=== PATIENT | female | born 1955 | race Caucasian/White ===

== ENCOUNTER → 2022-09-29 | Outpatient (CLI) | payer MEDICARE ==
[2022-09-29 12:08] LABS: African American GFR (CKD) >90 (>60 ml/min/1.73 sqM); Blood Urea Nitrogen 14 mg/dL (7-17); Non-African American GFR(CKD) 88 (>60 ml/min/1.73 sqM)
--- NOTE | 2022-09-29 22:11 | CT ---
EXAMINATION TYPE: CT chest w con DATE OF EXAM: 09/29/2022 COMPARISON: None HISTORY: h/o bilateral pneumonia CT DLP: 376.2 mGycm, Automated exposure control for dose reduction was used. CONTRAST: Performed injected with 70 mL of Isovue 300. TECHNIQUE: Axial images were obtained at 5 mm thick sections. Reconstructed images are reviewed on [employer] computer in the coronal plane. FINDINGS: Portion of the thyroid visualized is normal. Some posterior pleural thickening is present in the right and left upper lung lyn. Punctate nodule is in the anterior lateral right lung. Series 4 image 15. Some pneumonitis type changes in the later al left lung. Series 4 image 24. Small nodule may be posterior to this groundglass opacity. Series 4 image 21 No enlarged mediastinal or hilar adenopathy is evident. The ascending aorta diameter at the level o f the main pulmonary artery is 3.1 cm. The main pulmonary artery diameter at the bifurcation is 2.[address] sections are obtained through the upper abdomen. There is a 4.4 cm cyst at the inferior po le left kidney. There may be a hiatal hernia present. IMPRESSIONS: 1. Couple of punctate densities and groundglass opacities discussed above. Recommend follow-up CT [facility] in 6 months to reevaluate for stability. This should be confirmed as stable over the course of 2 y ears.
== END | disposition home or self-care (01) ==
LOC: RADCTMAIN 11:30
PROVIDERS: ATTEND Internal Medicine
DX: J18.9 Pneumonia, unspecified organism (principal); J98.4 Other disorders of lung; R91.8 Other nonspecific abnormal finding of lung field
CPT/HCPCS: 82565; 84520; 71260; 36415; Q9967

== ENCOUNTER 2022-11-20 11:23 | Day surgery (SDC) | payer MEDICARE ==
[~2022-11-20 11:23] MED LIST: LACTATED RINGERS 1,000 ML IV SCH
[2022-11-20 11:48] VITALS: TEMP 97.9
[2022-11-20] MEDS ORDERED: PROPOFOL 10 MG/ML 20 ML VIAL IV ONE (12:13)
[2022-11-20] MEDS ORDERED: LIDOCAINE 2% INJ 20 MG/ML (2 ML VIAL) ONE (12:13)
[2022-11-20] MEDS ORDERED: LIDOCAINE 2% (PF) 20 MG/ML 5 ML VIAL INHALATION ONE (12:24)
[2022-11-20 12:55] VITALS: BP 115/74; PULSE 98; RESP 20
--- NOTE | 2022-11-20 18:46 | OP ---
OPERATIVE REPORT DATE OF SERVICE : PROCEDURES PERFORMED: Bronchoscopy, random bronchial washing, and random bronchoalveolar lavage. PREOPERATIVE DIAGNOSIS: Chronic cough. POSTOPERATIVE DIAGNOSIS: Chronic bronchitis. ANESTHESIA USED: IV conscious sedation. DESCRIPTION OF PROCEDURE: The patient was prepared according to the bronchoscopy protocol. She was brought into the bronchoscopy suite, placed in a supine position, and O2 was applied via a Ventimask. The patient had continuous monitoring of her O2 saturation via pulse oximetry, and cardiac rhythm was continuously monitored. Blood pressure was intermittently monitored. After IV conscious sedation, the patient had a bite block applied, and the bronchoscope was advanced through the bite block down to the area of the vocal cords, which were noted to be patent. Then, a few milliliters of lidocaine was applied over the vocal cords, and the bronchoscope was advanced further down to the trachea. Thorough examination was done of the trachea, anupama, right upper lobe, right middle lobe, right lower lobe, left upper lobe, lingula, and left lower lobe. There was evidence of whitish thick secretions noted in the airways. No evidence of any endobronchial tumor was noted. The mucosa was noted to be inflamed, friable, and bled easily by touching with the bronchoscope. Random BAL of the different lobes and the segments was done. Random bronchial washing was done. Fluid was sent for different diagnostic studies. The procedure was well tolerated, and no evidence of any immediate complication. MMODL / IJN: [id number] /
[2022-11-21 12:25] LABS: Appearance,BF Blood Tinged
== END 2022-11-20 13:15 ==
LOC: ORWHC2ENDO 11:23
PROVIDERS: ATTEND Internal Medicine
DX: J44.9 Chronic obstructive pulmonary disease, unspecified (principal); Z87.891 Personal history of nicotine dependence; K21.9 Gastro-esophageal reflux disease without esophagitis; Z88.1 Allergy status to other antibiotic agents; Z79.51 Long term (current) use of inhaled steroids; Z79.899 Other long term (current) drug therapy; Z98.890 Other specified postprocedural states
CPT/HCPCS: 88108; 88305; 89050; 87252; 87070; 87205; 87116; 87102; 87206; 31645; 31624; J2704; J2001 ×2; 87496; 87498; 87502; 87529; 87634; 87798

== ENCOUNTER 2023-10-22 20:45 | Emergency (ER) | payer MEDICARE ==
[2023-10-22 21:05] VITALS: TEMP 97.8
--- NOTE | 2023-10-22 21:11 | ED ---
Abdominal Pain HPI - General Chief Complaint: Abdominal Pain Stated Complaint: abd pain NVD Source: patient Mode of arrival: ambulatory Limitations: no limitations - History of Present Illness Initial Comments: This patient is a 68-year-old woman with history of multiple previous abdominal surgeries, including colon resection secondary to diverticulitis, multiple previous ventral hernia surgeries, who presents with what she believes is a bowel obstruction. She states that she started to have left-sided abdominal pain as well as nausea early in the morning. She complains of constant abdominal discomfort on the left side with sharp exacerbations that come and go. She states she did have a normal bowel movement yesterday but has not today. She has not noted fever or chills. No pain into the chest or legs. No fever or chills. No change in urination. MD Complaint: abdominal pain Onset/Timin -: hour(s) Location: LUQ, LLQ Radiation: none Migration to: no migration Severity: severe Quality: aching, sharp Consistency: colicky Improves With: nothing Worsens With: nothing Associated Symptoms: nausea - Related Data Home Medications Medication Instructions Recorded Confirmed Albuterol Inhaler [Ventolin Hfa 1 - 2 puff INHALATION Q6H PRN 11/19/22 11/19/22 Inhaler] Ampk Anabolic Activator 1 tab PO DAILY 11/19/22 11/20/22 Fluticasone/Vilanterol [Breo 1 inhalation INHALATION DAILY 11/19/22 11/19/22 Ellipta 200-25 Mcg Inhaler] Vit No.179/Iron/Folic 1 each PO DAILY 11/19/22 11/19/22 [ Tablet] guaiFENesin [Mucinex] 600 mg PO Q12H PRN 11/19/22 11/19/22 Previous Rx's Medication Instructions Recorded HYDROcodone/APAP 5-325MG [Woodson 1 tab PO Q4HR PRN 3 Days #18 tab 10/23/23 5-325] Ondansetron Odt [Zofran ODT] 4 mg PO Q8HR PRN #10 tab 10/23/23 Tamsulosin [Flomax] 0.4 mg PO DAILY #14 cap 10/23/23 Allergies Allergy/AdvReac Type Severity Reaction Status Date / Time bee venom protein (honey bee) Allergy Anaphylaxis Verified 10/22/23 20:49 Quinolones Allergy was told Verified 10/22/23 20:49 to stay away from per neurologist sulfamethoxazole Allergy Anaphylaxis Verified 10/22/23 20:49 [From Bactrim] trimethoprim [From Bactrim] Allergy Anaphylaxis Verified 10/22/23 20:49 Review of Systems ROS Statement: Those systems with pertinent positive or pertinent negative responses have been documented in the HPI. ROS Other: All systems not noted in ROS Statement are negative. Constitutional: Denies: fever, chills Respiratory: Reports: cough. Denies: dyspnea Cardiovascular: Denies: chest pain, palpitations Gastrointestinal: Reports: abdominal pain, nausea. Denies: vomiting, diarrhea, constipation, melena, hematochezia Genitourinary: Denies: dysuria, frequency, hematuria Musculoskeletal: Denies: back pain Skin: Denies: rash Neurological: Denies: headache, weakness, numbness Past Medical History Past Medical History: COPD, GERD/Reflux, Pneumonia Additional Past Medical History / Comment(s): pneumonia several months ago, still has cough & bringing up yellow phlegm, hx. 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 History of Any Multi-Drug Resistant Organisms: None Reported Past Surgical History: Appendectomy, Bowel Resection, Cholecystectomy, Hernia Repair, Hysterectomy, Orthopedic Surgery, Tonsillectomy Additional Past Surgical History / Comment(s): hiatal hernia repair, pamela cataracts removed, cyst removed under chin x3, fatty tumor removed right shoulder blade, trigger finger surgeries pamela hands, partial brace inserted right wrist, right rib resection, bunionectomy left foot Past Anesthesia/Blood Transfusion Reactions: No Reported Reaction Smoking Status: Former smoker Past Alcohol Use History: None Reported Past Drug Use History: None Reported General Exam Limitations: no limitations General appearance: alert, in no apparent distress Head exam: Present: atraumatic, normocephalic Eye exam: Present: normal appearance. Absent: scleral icterus, conjunctival injection ENT exam: Present: normal oropharynx Neck exam: Present: normal inspection Respiratory exam: Present: normal lung sounds bilaterally. Absent: respiratory distress, wheezes, rales, rhonchi, stridor Cardiovascular Exam: Present: regular rate, normal rhythm, normal heart sounds. Absent: systolic murmur, diastolic murmur, rubs, gallop GI/Abdominal exam: Present: soft, tenderness. Absent: distended, guarding, rebound, rigid, mass, pulsatile mass, hernia Extremities exam: Present: normal inspection, normal capillary refill. Absent: pedal edema, calf tenderness Back exam: Present: normal inspection. Absent: CVA tenderness (R), CVA tenderness (L) Neurological exam: Present: alert Skin exam: Present: warm, dry, intact, normal color. Absent: rash Course Vital Signs 10/22/23 10/22/23 10/23/23 20:46 23:49 01:00 Temperature 97.8 F Pulse Rate 105 H 106 H 84 Respiratory 20 18 18 Rate Blood Pressure 161/84 159/103 145/85 O2 Sat by Pulse 97 96 95 Oximetry 10/23/23 02:33 Temperature Pulse Rate 97 Respiratory 18 Rate Blood Pressure 119/76 O2 Sat by Pulse 97 Oximetry Medical Decision Making - Medical Decision Making The patient had CT scan of the abdomen and pelvis that I interpreted as showing kidney stone with hydronephrosis. Was pt. sent in by a medical professional or institution (, PA, DIRECTOR OF BUSINESS CONTINUITY, urgent care, hospital, or detention...) When possible be specific @ -[No] Did you speak to anyone other than the patient for history (EMS, parent, family, police, friend...)? What history was obtained from this source @ -[No] Did you review nursing and triage notes (agree or disagree)? Why? @ -[I reviewed and agree with nursing and triage notes] Were old charts reviewed (outside hosp., previous admission, EMS record, old EKG, old radiological studies, urgent care reports/EKG's, detention records)? Report findings @ -[No old charts were reviewed] Differential Diagnosis (chest pain, altered mental status, abdominal pain women, abdominal pain men, vaginal bleeding, weakness, fever, dyspnea, syncope, headache, dizziness, GI bleed, back pain, seizure, CVA, palpatations, mental health, musculoskeletal)? @ -[Differential Abdominal Pain Women: Appendicitis, Cholecystitis, diverticulosis, ischemic bowel, pancreatitis, hepatitis, UTI, gastroenteritis, AAA, incarcerated hernia, bowel obstruction, constipation, inflammatory bowel, hepatitis, peptic ulcer disease, splenic infarction, perforated viscus, vulvitis, ovarian torsion, PID, kidney stone, placenta abruption, this is not meant to be an all-inclusive list EKG interpreted by me (3pts min.). @ -[As above] X-rays interpreted by me (1pt min.). @ -[None done] CT interpreted by me (1pt min.). @ -[I interpreted as above U/S interpreted by me (1pt. min.). @ -[None done] What testing was considered but not performed or refused? (CT, X-rays, U/S, labs)? Why? @ -[None] What meds were considered but not given or refused? Why? @ -[None] Did you discuss the management of the patient with other professionals (professionals i.e. , PA, DIRECTOR OF BUSINESS CONTINUITY, lab, RT, psych nurse, social worker clinical, branch controller, teacher, industrial relations officer, case coordinator)? Give summary @ -[No] Was smoking cessation discussed for >3mins.? @ -[No] Was critical care preformed (if so, how long)? @ -[No] Were there social determinants of health that impacted care today? How? (Homelessness, low income, unemployed, alcoholism, drug addiction, transportation, low edu. Level, literacy, decrease access to med. care, senior care, rehab)? @ -[No] Was there de-escalation of care discussed even if they declined (Discuss DNR or withdrawal of care, Hospice)? DNR status @ -[No] What co-morbidities impacted this encounter? (DM, HTN, Smoking, COPD, CAD, Cancer, CVA, ARF, Chemo, Hep., AIDS, mental health diagnosis, sleep apnea, morbid obesity)? @ -[None] Was patient admitted / discharged? Hospital course, mention meds given and route, prescriptions, significant lab abnormalities, going to OR and other pertinent info. @ -[Patient is a 68-year-old woman here to have evaluation for flank and abdominal pain. The history and physical exam suggestive of kidney stone which is confirmed by the CT scan. The patient did receive analgesics and fluid and is feeling better. The patient did want to go home. She was not able to give urine specimen. We discussed appropriate further care and follow-up as well as a return parameters. Undiagnosed new problem with uncertain prognosis? @ -[No] Drug Therapy requiring intensive monitoring for toxicity (Heparin, Nitro, Insulin, Cardizem)? @ -[No] Were any procedures done? @ -[No] Diagnosis/symptom? @ -[Acute kidney stone with hydronephrosis Acute, or Chronic, or Acute on Chronic? @ -[Acute Uncomplicated (without systemic symptoms) or Complicated (systemic symptoms)? @ -[Uncomplicated Side effects of treatment? @ -[No] Exacerbation, Progression, or Severe Exacerbation? @ -[No] Poses a threat to life or bodily function? How? (Chest pain, [place], [place], pneumonia, PE, COPD, DKA, ARF, appy, cholecystitis, CVA, Diverticulitis, Homicidal, Rivera icidal, threat to staff... and all critical care pts) @ -[No] - Lab Data Result diagrams: 10/22/23 21:50 10/22/23 21:50 Lab Results 10/22/23 10/22/23 10/22/23 Range/Units 21:50 21:50 21:50 WBC 17.7 H (3.8-10.6) k/uL RBC 4.66 (3.80-5.40) m/uL Hgb 14.7 (11.4-16.0) gm/dL Hct 43.8 (34.0-46.0) % MCV 93.9 (80.0-100.0) fL MCH 31.6 (25.0-35.0) pg MCHC 33.6 (31.0-37.0) g/dL RDW 12.7 (11.5-15.5) % Plt Count 385 (150-450) k/uL MPV 8.2 Neutrophils % 88 % Lymphocytes % 8 % Monocytes % 3 % Eosinophils % 1 % Basophils % 0 % Neutrophils # 15.6 H (1.3-7.7) k/uL Lymphocytes # 1.4 (1.0-4.8) k/uL Monocytes # 0.5 (0-1.0) k/uL Eosinophils # 0.2 (0-0.7) k/uL Basophils # 0.1 (0-0.2) k/uL Sodium 137 (137-145) mmol/L Potassium 4.2 (3.5-5.1) mmol/L Chloride 103 (98-107) mmol/L Carbon Dioxide 21 L (22-30) mmol/L Anion Gap 13 mmol/L BUN 16 (7-17) mg/dL Creatinine 0.82 (0.52-1.04) mg/dL Est GFR (CKD-EPI)AfAm 86 (>60 ml/min/1.73 sqM) Est GFR (CKD-EPI)NonAf 74 (>60 ml/min/1.73 sqM) Glucose 182 H (74-99) mg/dL Lactic Ac Sepsis Rflx Plasma Lactic Acid Meño 2.4 H* (0.7-2.0) mmol/L Calcium 9.8 (8.4-10.2) mg/dL Total Bilirubin 0.5 (0.2-1.3) mg/dL AST 21 (14-36) U/L ALT 17 (4-34) U/L Alkaline Phosphatase 75 (38-126) U/L Total Protein 7.9 (6.3-8.2) g/dL Albumin 5.0 (3.5-5.0) g/dL Amylase 58 (30-110) U/L Lipase 162 (23-300) U/L 10/22/23 Range/Units 22:41 WBC (3.8-10.6) k/uL RBC (3.80-5.40) m/uL Hgb (11.4-16.0) gm/dL Hct (34.0-46.0) % MCV (80.0-100.0) fL MCH (25.0-35.0) pg MCHC (31.0-37.0) g/dL RDW (11.5-15.5) % Plt Count (150-450) k/uL MPV Neutrophils % % Lymphocytes % % Monocytes % % Eosinophils % % Basophils % % Neutrophils # (1.3-7.7) k/uL Lymphocytes # (1.0-4.8) k/uL Monocytes # (0-1.0) k/uL Eosinophils # (0-0.7) k/uL Basophils # (0-0.2) k/uL Sodium (137-145) mmol/L Potassium (3.5-5.1) mmol/L Chloride (98-107) mmol/L Carbon Dioxide (22-30) mmol/L Anion Gap mmol/L BUN (7-17) mg/dL Creatinine (0.52-1.04) mg/dL Est GFR (CKD-EPI)AfAm (>60 ml/min/1.73 sqM) Est GFR (CKD-EPI)NonAf (>60 ml/min/1.73 sqM) Glucose (74-99) mg/dL Lactic Ac Sepsis Rflx Y Plasma Lactic Acid Meño (0.7-2.0) mmol/L Calcium (8.4-10.2) mg/dL Total Bilirubin (0.2-1.3) mg/dL AST (14-36) U/L ALT (4-34) U/L Alkaline Phosphatase (38-126) U/L Total Protein (6.3-8.2) g/dL Albumin (3.5-5.0) g/dL Amylase (30-110) U/L Lipase (23-300) U/L Disposition Clinical Impression: Kidney stone Disposition: HOME SELF-CARE Condition: Good Instructions (If sedation given, give patient instructions): Kidney Stones (ED) Prescriptions: Tamsulosin [Flomax] 0.4 mg PO DAILY #14 cap HYDROcodone/APAP 5-325MG [Woodson 5-325] 1 tab PO Q4HR PRN 3 Days #18 tab PRN Reason: Pain Ondansetron Odt [Zofran ODT] 4 mg PO Q8HR PRN #10 tab PRN Reason: Nausea Is patient prescribed a controlled substance at d/c from ED?: No Referrals: Catarina Silvestre DO [Primary Care Provider] - 1-2 days Gerardo Martin MD [STAFF PHYSICIAN] - 1-2 days
[2023-10-22] MEDS: ONDANSETRON 4 MG/2 ML VIAL IVP STA (21:41)
[2023-10-22] MEDS: MORPHINE SULFATE 4 MG/ML SYRINGE IV STA (21:44)
[2023-10-22] MEDS: SODIUM CHLORIDE 0.9% 1,000 ML IV STA (21:46)
[2023-10-22 22:00] LABS: Basophils # (A) 0.1 k/uL (0-0.2); Basophils % (A) 0 %; Eosinophils # (A) 0.2 k/uL (0-0.7); Eosinophils % (A) 1 %; HCT 43.8 % (34.0-46.0); HGB 14.7 gm/dL (11.4-16.0); Lymphocytes # (A) 1.4 k/uL (1.0-4.8); Lymphocytes % (A) 8 %; MCH 31.6 pg (25.0-35.0); MCHC 33.6 g/dL (31.0-37.0); MCV 93.9 fL (80.0-100.0); Mean Platelet Volume 8.2; Monocytes # (A) 0.5 k/uL (0-1.0); Monocytes % (A) 3 %; Neutrophils # (A) 15.6 k/uL (1.3-7.7); Neutrophils % (A) 88 %; Platelet Count 385 k/uL (150-450); RBC 4.66 m/uL (3.80-5.40); RDW 12.7 % (11.5-15.5); WBC 17.7 k/uL (3.8-10.6)
[2023-10-22 22:15] LABS: ALT 17 U/L (4-34); AST 21 U/L (14-36); African American GFR (CKD) 86 (>60 ml/min/1.73 sqM); Alkaline Phosphatase 75 U/L (38-126); Amylase 58 U/L (30-110); Anion Gap 13 mmol/L; Blood Urea Nitrogen 16 mg/dL (7-17); Calcium 9.8 mg/dL (8.4-10.2); Carbon Dioxide 21 mmol/L (22-30); Chloride 103 mmol/L (98-107); Glucose 182 mg/dL (74-99); Lipase 162 U/L (23-300); Non-African American GFR(CKD) 74 (>60 ml/min/1.73 sqM); Potassium 4.2 mmol/L (3.5-5.1); Sodium 137 mmol/L (137-145); Total Bilirubin 0.5 mg/dL (0.2-1.3); Total Protein 7.9 g/dL (6.3-8.2)
--- NOTE | 2023-10-22 22:58 | CT ---
EXAMINATION TYPE: CT abdomen pelvis w con DATE OF EXAM: 10/22/2023 HISTORY: Abdominal pain and distention with nausea since this morning. CT DLP: 957.8mGycm Automated Exposure Control for Dose Reduction was Utilized. CONTRAST: CT scan of the abdomen and pelvis is performed with IV Contrast, patient injected with 100 ml mL of I sovue 300. COMPARISON: None. FINDINGS: LUNG BASES: No significant abnormality is appreciated. LIVER/GB: Liver is diffusely low-density consistent with fatty infiltrative hepatocellular disease. PANCREAS: No significant abnormality is seen. SPLEEN: No significant abnormality is seen. ADRENALS: No significant abnormality is seen. KIDNEYS: Symmetric cortical medullary uptake and excretion is seen bilaterally. Simple appearing cent ral thin-walled parapelvic cysts are identified bilaterally. There is 4.7 cm simple appearing thin-wa lled cyst lower pole left kidney identified. There is 2 to 3 mm proximal left ureter calculus coronal image 52 causing mild to moderate left-sided hydronephrosis and moderate to severe ill-defined perin ephric fluid extending along course of ureter. There is additional 2 mm calculus in distal left urete r axial image 75. BOWEL: Diverticula throughout the transverse left hand sigmoid colon. No CT evidence for acute divert iculitis. No abnormal small or large bowel dilatation.. UTERUS/ADNEXA: No gross abnormality seen. LYMPH NODES: No greater than 1cm abdominal or pelvic lymph nodes are appreciated. OSSEOUS STRUCTURES: Transitional-type vertebra at lumbosacral junction. OTHER: Mild/moderate calcified plaque of the aorta extends into branch vessels. IMPRESSION: 1. There is obstructing 2 to 3 mm in the proximal left ureter and 2 mm calculus in the distal left ur eter causing [id number] left-sided hydronephrosis but no delayed excretion and moderate to gretchen re perinephric ill-defined fluid.
[2023-10-23] MEDS: TAMSULOSIN 0.4 MG CAP.ER.24H PO STA (00:19)
[2023-10-23] MEDS: ONDANSETRON 4 MG/2 ML VIAL IVP STA (00:20)
[2023-10-23] MEDS: MORPHINE SULFATE 4 MG/ML SYRINGE IV STA (00:25)
[2023-10-23 00:28] VITALS: RESP 18
[2023-10-23] MEDS: IBUPROFEN 600 MG TAB PO STA (02:29)
[2023-10-23 02:42] VITALS: BP 119/76; PULSE 97
== END 2023-10-23 02:35 | disposition home or self-care (01) ==
LOC: EC 20:45
DX: N13.2 Hydronephrosis with renal and ureteral calculous obstruction (principal); Z87.891 Personal history of nicotine dependence; Z88.2 Allergy status to sulfonamides; Z91.030 Bee allergy status; Z88.8 Allergy status to other drugs, medicaments and biological substances; Z88.1 Allergy status to other antibiotic agents
CPT/HCPCS: 99284; 96374; 96375 ×2; 96376 ×2; 96361; 36415; 80053; 82150; 83605; 83690; 85025; 74177; J2270 ×2; J2405 ×2; Q9967

== ENCOUNTER 2024-06-02 12:04 | Inpatient (IN) | payer MEDICARE ==
[2024-06-02 12:52] LABS: Basophils # (A) 0.2 k/uL (0-0.2); Basophils % (A) 1 %; Eosinophils # (A) 0.2 k/uL (0-0.7); Eosinophils % (A) 1 %; HCT 40.7 % (34.0-46.0); HGB 13.3 gm/dL (11.4-16.0); Lymphocytes % (A) 21 %; MCH 29.8 pg (25.0-35.0); MCHC 32.8 g/dL (31.0-37.0); MCV 90.9 fL (80.0-100.0); Mean Platelet Volume 7.3; Monocytes # (A) 0.9 k/uL (0-1.0); Monocytes % (A) 5 %; Neutrophils # (A) 13.2 k/uL (1.3-7.7); Neutrophils % (A) 69 %; Platelet Count 537 k/uL (150-450); RBC 4.47 m/uL (3.80-5.40); RDW 13.9 % (11.5-15.5)
--- NOTE | 2024-06-02 13:04 | ED ---
General Adult HPI - General Chief complaint: Shortness of Breath Stated complaint: PABLO Time Seen by Provider: 06/02/24 12:11 Source: patient, RN notes reviewed, old records reviewed Mode of arrival: ambulatory Limitations: no limitations - History of Present Illness Initial comments: 69 female with COPD and recent diagnosis of pneumonia presenting with increased cough and dyspnea. Patient has been on 2 antibiotics over the past 1 week. She was prescribed antibiotics by her kitchen supervisor who she saw on Thursday. She states she is continue to have productive cough, dyspnea, and chills. No lower extremity pain or swelling. - Related Data Home Medications Medication Instructions Recorded Confirmed Albuterol Inhaler [Ventolin Hfa 1 - 2 puff INHALATION Q6H PRN 11/19/22 11/19/22 Inhaler] Ampk Anabolic Activator 1 tab PO DAILY 11/19/22 11/20/22 Fluticasone/Vilanterol [Breo 1 inhalation INHALATION DAILY 11/19/22 11/19/22 Ellipta 200-25 Mcg Inhaler] Vit No.179/Iron/Folic 1 each PO DAILY 11/19/22 11/19/22 [ Tablet] guaiFENesin [Mucinex] 600 mg PO Q12H PRN 11/19/22 11/19/22 Previous Rx's Medication Instructions Recorded HYDROcodone/APAP 5-325MG [[place] 1 tab PO Q4HR PRN 3 Days #18 tab 10/23/23 5-325] Ondansetron Odt [Zofran ODT] 4 mg PO Q8HR PRN #10 tab 10/23/23 Tamsulosin [Flomax] 0.4 mg PO DAILY #14 cap 10/23/23 Allergies Allergy/AdvReac Type Severity Reaction Status Date / Time bee venom protein (honey bee) Allergy Anaphylaxis Verified 06/02/24 12:09 Quinolones Allergy was told Verified 06/02/24 12:09 to stay away from per neurologist sulfamethoxazole Allergy Anaphylaxis Verified 06/02/24 12:09 [From Bactrim] trimethoprim [From Bactrim] Allergy Anaphylaxis Verified 06/02/24 12:09 Review of Systems ROS Statement: Those systems with pertinent positive or pertinent negative responses have been documented in the HPI. ROS Other: All systems not noted in ROS Statement are negative. Past Medical History Past Medical History: COPD, GERD/Reflux, Pneumonia Additional Past Medical History / Comment(s): pneumonia several months ago, still has cough & bringing up yellow phlegm, hx. 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 History of Any Multi-Drug Resistant Organisms: None Reported Past Surgical History: Appendectomy, Bowel Resection, Cholecystectomy, Hernia Repair, Hysterectomy, Orthopedic Surgery, Tonsillectomy Additional Past Surgical History / Comment(s): hiatal hernia repair, pamela cataracts removed, cyst removed under chin x3, fatty tumor removed right shoulder blade, trigger finger surgeries pamela hands, partial brace inserted right wrist, right rib resection, bunionectomy left foot Past Anesthesia/Blood Transfusion Reactions: No Reported Reaction Smoking Status: Former smoker Past Alcohol Use History: None Reported Past Drug Use History: None Reported General Exam Limitations: no limitations General appearance: alert, in no apparent distress Head exam: Present: atraumatic, normocephalic Eye exam: Present: normal appearance, PERRL ENT exam: Present: normal exam Neck exam: Present: normal inspection. Absent: tenderness, meningismus Respiratory exam: Present: respiratory distress, wheezes, rhonchi, decreased breath sounds Cardiovascular Exam: Present: normal rhythm, tachycardia GI/Abdominal exam: Present: soft. Absent: distended, tenderness, guarding Extremities exam: Present: normal inspection, normal capillary refill. Absent: pedal edema, calf tenderness Neurological exam: Present: alert, oriented X3, CN II-XII intact, motor sensory deficit Psychiatric exam: Present: normal affect, normal mood Skin exam: Present: warm, dry, intact. Absent: cyanosis, diaphoretic Course Vital Signs 06/02/24 06/02/24 06/02/24 12:05 13:08 13:15 Temperature 97.6 F Pulse Rate 107 H 70 73 Respiratory 20 Rate Blood Pressure 120/73 O2 Sat by Pulse 91 L Oximetry 06/02/24 13:21 Temperature Pulse Rate 94 Respiratory 16 Rate Blood Pressure 117/67 O2 Sat by Pulse 94 L Oximetry Medical Decision Making - Medical Decision Making Was pt. sent in by a medical professional or institution (, PA, SEALS ENGRAVER, urgent care, hospital, or residential...) When possible be specific @ -No Did you speak to anyone other than the patient for history (EMS, parent, family, police, friend...)? What history was obtained from this source @ -No Did you review nursing and triage notes (agree or disagree)? Why? @ -I reviewed and agree with nursing and triage notes Were old charts reviewed (outside hosp., previous admission, EMS record, old EKG, old radiological studies, urgent care reports/EKG's, residential records)? Report findings @ -No old charts were reviewed Differential Dyspnea: Coronary syndrome, arrhythmia, tamponade, asthma, COPD, pulmonary embolism, pneumonia, pneumothorax, pulmonary effusion, anaphylaxis, diabetic ketoacidosis, flailed chest, pulmonary contusion, diaphragmatic rupture, anemia, neuromuscular, this is not meant to be an all-inclusive list. EKG interpreted by me (3pts min.). @Sinus tach rate of 102, WV interval 136, QRS duration 87, QTc [address] segment elevation X-rays interpreted by me (1pt min.). @Chest x-ray showing bilateral lower lobe infiltrate worse on the left. CT interpreted by me (1pt min.). @ -None done U/S interpreted by me (1pt. min.). @ -None done What testing was considered but not performed or refused? (CT, X-rays, U/S, labs)? Why? @ -None What meds were considered but not given or refused? Why? @ -None Did you discuss the management of the patient with other professionals (professionals i.e. , PA, SEALS ENGRAVER, lab, RT, psych nurse, clinical social worker, home decorator, teacher, payroll officer, outsole caser)? Give summary @ -Case discussed with Dr. Ulloa who will admit Was smoking cessation discussed for >3mins.? @ -No Was critical care preformed (if so, how long)? @Yes 35 minutes Were there social determinants of health that impacted care today? How? (Homelessness, low income, unemployed, alcoholism, drug addiction, transpo rtation, low edu. Level, literacy, decrease access to med. care, skilled nursing, rehab)? @ -No Was there de-escalation of care discussed even if they declined (Discuss DNR or withdrawal of care, Hospice)? DNR status @ -No What co-morbidities impacted this encounter? (DM, HTN, Smoking, COPD, CAD, Cancer, CVA, ARF, Chemo, Hep., AIDS, mental health diagnosis, sleep apnea, morbid obesity)? @COPD Was patient admitted / discharged? Hospital course, mention meds given and route, prescriptions, significant lab abnormalities, going to OR and other pertinent info. @ -69-year-old female with increased cough and dyspnea, productive cough, chills. Patient has elevated white blood cell count, chest x-ray concerning for bilateral infiltrate. Patient was sent in by pulmonology for evaluation. She will require admission for treatment of COPD exacerbation with bilateral pneumonia. Admitted to Dr. Ulloa who has been contacted. Undiagnosed new problem with uncertain prognosis? @ -No Drug Therapy requiring intensive monitoring for toxicity (Heparin, Nitro, Insulin, Cardizem)? @ -No Were any procedures done? @ -No Diagnosis/symptom? @ -[COPD with bilateral pneumonia Acute, or Chronic, or Acute on Chronic? @ -Acute Uncomplicated (without systemic symptoms) or Complicated (systemic symptoms)? @ -Complicated Side effects of treatment? @ -[No Exacerbation, Progression, or Severe Exacerbation? @ -No Poses a threat to life or bodily function? How? (Chest pain, [place], [place], pneumonia, PE, COPD, DKA, ARF, appy, cholecystitis, CVA, Diverticulitis, Homicidal, Suicidal, threat to staff... and all critical care pts) @ -[Yes, COPD, respiratory failure pneumonia, sepsis - Lab Data Result diagrams: 06/02/24 12:06/02/24 12:27 Lab Results 06/02/24 06/02/24 06/02/24 Range/Units 12:27 12: 12:27 WBC 19.0 H (3.8-10.6) k/uL RBC 4.47 (3.80-5.40) m/uL Hgb 13.3 (11.4-16.0) gm/dL Hct 40.7 (34.0-46.0) % MCV 90.9 (80.0-100.0) fL MCH 29.8 (25.0-35.0) pg MCHC 32.8 (31.0-37.0) g/dL RDW 13.9 (11.5-15.5) % Plt Count 537 H (150-450) k/uL MPV 7.3 Neutrophils % 69 % Lymphocytes % 21 % Monocytes % 5 % Eosinophils % 1 % Basophils % 1 % Neutrophils # 13.2 H (1.3-7.7) k/uL Lymphocytes # 4.0 (1.0-4.8) k/uL Monocytes # 0.9 (0-1.0) k/uL Eosinophils # 0.2 (0-0.7) k/uL Basophils # 0.2 (0-0.2) k/uL PT 11.1 (10.0-12.5) sec INR 1.0 (<1.2) APTT 24.5 (22.0-30.0) sec Sodium 135 L (137-145) mmol/L Potassium 4.0 (3.5-5.1) mmol/L Chloride 97 L (98-107) mmol/L Carbon Dioxide 27 (22-30) mmol/L Anion Gap 11 mmol/L BUN 13 (7-17) mg/dL Creatinine 0.72 (0.52-1.04) mg/dL Est GFR (CKD-EPI)AfAm >90 (>60 ml/min/1.73 sqM) Est GFR (CKD-EPI)NonAf 87 (>60 ml/min/1.73 sqM) Glucose 123 H (74-99) mg/dL Plasma Lactic Acid Meño (0.7-2.0) mmol/L Calcium 9.8 (8.4-10.2) mg/dL Magnesium 2.2 (1.6-2.3) mg/dL Total Bilirubin 0.9 (0.2-1.3) mg/dL AST 66 H (14-36) U/L ALT 47 H (4-34) U/L Alkaline Phosphatase 136 H (38-126) U/L Total Protein 8.2 (6.3-8.2) g/dL Albumin 4.5 (3.5-5.0) g/dL Influenza Type A (PCR) (Not Detectd) Influenza Type B (PCR) (Not Detectd) RSV (PCR) (Not Detectd) SARS-CoV-2 (PCR) (Not Detectd) 06/02/24 06/02/24 Range/Units 12:27 13:14 WBC (3.8-10.6) k/uL RBC (3.80-5.40) m/uL Hgb (11.4-16.0) gm/dL Hct (34.0-46.0) % MCV (80.0-100.0) fL MCH (25.0-35.0) pg MCHC (31.0-37.0) g/dL RDW (11.5-15.5) % Plt Count (150-450) k/uL MPV Neutrophils % % Lymphocytes % % Monocytes % % Eosinophils % % Basophils % % Neutrophils # (1.3-7.7) k/uL Lymphocytes # (1.0-4.8) k/uL Monocytes # (0-1.0) k/uL Eosinophils # (0-0.7) k/uL Basophils # (0-0.2) k/uL PT (10.0-12.5) sec INR (<1.2) APTT (22.0-30.0) sec Sodium (137-145) mmol/L Potassium (3.5-5.1) mmol/L Chloride (98-107) mmol/L Carbon Dioxide (22-30) mmol/L Anion Gap mmol/L BUN (7-17) mg/dL Creatinine (0.52-1.04) mg/dL Est GFR (CKD-EPI)AfAm (>60 ml/min/1.73 sqM) Est GFR (CKD-EPI)NonAf (>60 ml/min/1.73 sqM) Glucose (74-99) mg/dL Plasma Lactic Acid Meño 1.5 (0.7-2.0) mmol/L Calcium (8.4-10.2) mg/dL Magnesium (1.6-2.3) mg/dL Total Bilirubin (0.2-1.3) mg/dL AST (14-36) U/L ALT (4-34) U/L Alkaline Phosphatase (38-126) U/L Total Protein (6.3-8.2) g/dL Albumin (3.5-5.0) g/dL Influenza Type A (PCR) Not Detected (Not Detectd) Influenza Type B (PCR) Not Detected (Not Detectd) RSV (PCR) Not Detected (Not Detectd) SARS-CoV-2 (PCR) Not Detected (Not Detectd) Critical Care Time Critical Care Time: Yes Total Critical Care Time: 35 Disposition Clinical Impression: Community acquired pneumonia, Acute exacerbation of chronic obstructive pulmonary disease Disposition: ADMITTED IP TO THIS [facility] Condition: Stable Is patient prescribed a controlled substance at d/c from ED?: No Referrals: Catarina Silvestre DO [Primary Care Provider] - 1-2 days Time of Disposition: 14:12
[2024-06-02 13:05] LABS: Partial Thromboplastin Time 24.5 sec (22.0-30.0); Prothrombin Time 11.1 sec (10.0-12.5)
[2024-06-02] MEDS: IPRATROPIUM 0.5 MG/2.5 ML NEBU INHALATION STA (13:06)
[2024-06-02] MEDS: ALBUTEROL NEBULIZED 2.5 MG/3 ML INHALATION STA (13:06)
--- NOTE | 2024-06-02 13:07 | XR ---
EXAMINATION TYPE: XR chest 2V DATE OF EXAM: 06/02/2024 1:02 PM COMPARISON: Chest radiographs from 06/01/2024 TECHNIQUE: XR chest 2V Frontal and lateral views of the chest. CLINICAL INDICATION:Female, 69 years old with history of difficulty breathing; FINDINGS: Lungs/Pleura: There is flattening of the diaphragm with increased lucency of the lungs. No evidence o f pneumothorax pleural effusion. Patchy bibasilar airspace opacities on the frontal view. Pulmonary vascularity: Unremarkable. Heart/mediastinum: Cardiomediastinal silhouette is unremarkable. Atherosclerotic calcifications are seen in the aorta. Musculoskeletal: No acute osseous pathology. Mild multilevel degenerative disc disease. IMPRESSION: 1. Redemonstration of patchy bibasilar airspace opacities concerning for pneumonia versus atelectasi s in the appropriate clinical setting. 2. COPD changes. [facility], , 06/02/2024 1:05 PM
[2024-06-02 13:09] LABS: ALT 47 U/L (4-34); African American GFR (CKD) >90 (>60 ml/min/1.73 sqM); Albumin 4.5 g/dL (3.5-5.0); Anion Gap 11 mmol/L; Blood Urea Nitrogen 13 mg/dL (7-17); Calcium 9.8 mg/dL (8.4-10.2); Carbon Dioxide 27 mmol/L (22-30); Chloride 97 mmol/L (98-107); Glucose 123 mg/dL (74-99); Non-African American GFR(CKD) 87 (>60 ml/min/1.73 sqM); Sodium 135 mmol/L (137-145); Total Bilirubin 0.9 mg/dL (0.2-1.3); Total Protein 8.2 g/dL (6.3-8.2)
[2024-06-02 13:10] LABS: AST 66 U/L (14-36); Alkaline Phosphatase 136 U/L (38-126); Magnesium 2.2 mg/dL (1.6-2.3)
[2024-06-02] MEDS: SODIUM CHLORIDE 0.9% 500 ML 500 ML IV STA (13:15)
[2024-06-02] MEDS: methylPREDNISolone SOD SUCCI 125 MG/2 ML VIAL IV STA (13:16)
[2024-06-02] MEDS ORDERED: NALOXONE 0.4 MG/ML 1 ML VIAL IVP PRN (14:08)
[2024-06-02] MEDS: AZITHROMYCIN 500 MG in SODIUM CHLORIDE 0.9% 250 ML IVPB STA (14:57)
[2024-06-02] MEDS: IPRATROPIUM-ALBUTEROL 3 ML NEB INHALATION SCH (16:07)
[2024-06-02] MEDS: methylPREDNISolone SOD SUCCI 125 MG/2 ML VIAL IV SCH (17:36)
[2024-06-02] MEDS: ACETAMINOPHEN TAB 325 MG TAB PO PRN (18:46)
[2024-06-02] MEDS: GABAPENTIN 300 MG CAP PO SCH (21:35)
[2024-06-02] MEDS ORDERED: DEXTROSE 50% SYRINGE 50 ML IVP PRN ×2 (22:44)
--- NOTE | 2024-06-02 22:55 | P.HPIM ---
History of Present Illness This is a pleasant 69 years old female who was sent by her rip sawyer Dr. Carrillo to the hospital because she failed outpatient treatment for her respiratory symptoms. She was treated with Z-García for few days with no much improvement She presents because of central chest pain and both sides of the rib cage associated with coughing Also with some dyspnea and she makes little of phlegm which is sent for culture She denies GI/ symptoms No headache dizziness She denies smoking alcohol or illicit drugs Patient does not use oxygen at home She is afebrile and vitals are stable She has leukocytosis of 19,000 rest of labs were unremarkable CBC, BMP Liver enzymes mildly elevated and INR are negative Influenza A and type B, RSV, SARS (coronavirus) are undetected Chest x-ray showing bilateral patchy infiltrate I reviewed chest x-ray by myself and agree with this with more infiltrate and obliteration of the left costophrenic angle on the left side EKG showing sinus tachycardia at [address]-T changes Review of Systems Review of systems CONSTITUTIONAL: No fever, no malaise, no fatigue. HEENT: No recent visual problems or hearing problems. Denied any sore throat. CARDIOVASCULAR: No orthopnea, PND, no palpitations, no syncope. PULMONARY: No chest wall tenderness, no hemoptysis. GASTROINTESTINAL: No diarrhea, no nausea, no vomiting, no abdominal pain. Normoactive bowel sounds. NEUROLOGICAL: No headaches, no weakness, no numbness. HEMATOLOGICAL: Denies any bleeding or petechiae. GENITOURINARY: Denies any burning micturition, frequency, or urgency. MUSCULOSKELETAL/RHEUMATOLOGICAL: Denies any joint pain, swelling, or any muscle pain. ENDOCRINE: Denies any polyuria or polydipsia. Past Medical History Past Medical History: COPD, GERD/Reflux, Pneumonia Additional Past Medical History / Comment(s): pneumonia several months ago, still has cough & bringing up yellow phlegm, hx. 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 History of Any Multi-Drug Resistant Organisms: None Reported Past Surgical History: Appendectomy, Bowel Resection, Cholecystectomy, Hernia Repair, Hysterectomy, Orthopedic Surgery, Tonsillectomy Additional Past Surgical History / Comment(s): hiatal hernia repair, pamela cataracts removed, cyst removed under chin x3, fatty tumor removed right shoulder blade, trigger finger surgeries pamela hands, partial brace inserted right wrist, right rib resection, bunionectomy left foot Past Anesthesia/Blood Transfusion Reactions: No Reported Reaction Smoking Status: Former smoker Past Alcohol Use History: None Reported Past Drug Use History: None Reported Medications and Allergies Home Medications Medication Instructions Recorded Confirmed Type Fluticasone/Vilanterol [Breo 1 puff INHALATION RT-DAILY 11/19/22 06/02/24 History Ellipta 200-25 Mcg Inhaler] Azithromycin [Zithromax Z Pack] See Taper PO DIRECTED 06/02/24 06/02/24 History EPINEPHrine (Auto Inject) [Epipen] 0.3 mg IM ONCE PRN 06/02/24 06/02/24 History Gabapentin [Neurontin] 300 mg PO DAILY@1500 06/02/24 06/02/24 History Gabapentin [Neurontin] 600 mg PO BID@0900,2100 06/02/24 06/02/24 History Ipratropium-Albuterol Nebulize 3 ml INHALATION RT-QID 06/02/24 06/02/24 History [Duoneb 0.5 mg-3 mg/3 ml Soln] Meloxicam [Mobic] 15 mg PO DAILY 06/02/24 06/02/24 History Metaxalone [Skelaxin] 800 mg PO TID PRN 06/02/24 06/02/24 History Gummy 2 tab PO DAILY 06/02/24 06/02/24 History Rosuvastatin [Crestor] 10 mg PO MOFR 06/02/24 06/02/24 History amLODIPine [Norvasc] 5 mg PO DAILY 06/02/24 06/02/24 History cefuroxime axetiL [Ceftin] 500 mg PO BID 06/02/24 06/02/24 History valACYclovir HCL [Valtrex] 2,000 mg PO Q12H PRN 06/02/24 06/02/24 History Allergies Allergy/AdvReac Type Severity Reaction Status Date / Time bee venom protein (honey bee) Allergy Anaphylaxis Verified 06/02/24 15:39 Quinolones Allergy was told Verified 06/02/24 15:39 to stay away from per neurologist sulfamethoxazole Allergy Anaphylaxis Verified 06/02/24 15:39 [From Bactrim] trimethoprim [From Bactrim] Allergy Anaphylaxis Verified 06/02/24 15:39 Physical Exam Vitals: Vital Signs Temp Pulse Resp BP Pulse Ox 06/02/24 13:21 94 16 117/67 94 L 06/02/24 13:15 73 06/02/24 13:08 70 06/02/24 12:05 97.6 F 107 H 20 120/73 91 L Intake and Output 06/02/24 06/02/24 06/02/24 06:59 14:59 22:59 Other: Weight 67.132 kg GENERAL: The patient is alert and oriented x3, not in any acute distress. Well developed, well nourished. HEENT: Pupils are round and equally reacting to light. EOMI. No scleral icterus. No conjunctival pallor. Normocephalic, atraumatic. No pharyngeal erythema. No thyromegaly. CARDIOVASCULAR: S1 and S2 present. No murmurs, rubs, or gallops. -PULMONARY: Chest is clear to auscultation, no wheezing , bilateral basal c repitation ABDOMEN: Soft, nontender, nondistended, normoactive bowel sounds. No palpable organomegaly. MUSCULOSKELETAL: No joint swelling or deformity. EXTREMITIES: No cyanosis, clubbing, or pedal edema. NEUROLOGICAL: Gross neurological examination did not reveal any focal deficits. SKIN: No rashes. no petechiae. Results CBC & Chem 7: 06/02/24 12:27 06/02/24 12:27 Labs: Abnormal Lab Results - Last 24 Hours (Table) 06/02/24 06/02/24 Range/Units 12: 12:27 WBC 19.0 H (3.8-10.6) k/uL Plt Count 537 H (150-450) k/uL Neutrophils # 13.2 H (1.3-7.7) k/uL Sodium 135 L (137-145) mmol/L Chloride 97 L (98-107) mmol/L Glucose 123 H (74-99) mg/dL AST 66 H (14-36) U/L ALT 47 H (4-34) U/L Alkaline Phosphatase 136 H (38-126) U/L Assessment and Plan Assessment: Bilateral left lower lobe pneumonia more than right who failed outpatient treatment Leukocytosis secondary to above Acute COPD exacerbation Plan: Continue with IV Solu-Medrol Continue with ceftriaxone Pulmonary team consult Follow-up culture result Continue with bronchodilator Labs and medication were reviewed.. Continue same treatment. Continue with symptomatic treatment. Resume home medication. Monitor labs and vitals. DVT and GI prophylaxis. Further recommendations as per clinical course of the patient DVT prophylaxis: Subcutaneous heparin GI Prophylaxis: Pepcid PT/OT: Pending Prognosis is guarded
[2024-06-03] MEDS: CYCLOBENZAPRINE 10 MG TAB PO PRN (00:08)
[2024-06-03 06:18] LABS: Glucose,Whole Blood 248 mg/dL (70-110)
[2024-06-03] MEDS: INSULIN ASPART (NovoLOG) 100 UNIT/ML VIAL SQ SCH (06:49)
[2024-06-03] MEDS: SYMBICORT 160-4.5 MCG INHALER INHALATION SCH (08:33)
[2024-06-03] MEDS: MELOXICAM 7.5 MG TAB PO SCH (08:53)
[2024-06-03] MEDS: FAMOTIDINE 20 MG/2 ML VIAL IV SCH (08:54)
[2024-06-03] MEDS: HEPARIN SODIUM,PORCINE 5,000 UNIT/ML 1 ML VIAL SQ SCH (08:54)
[2024-06-03 10:05] VITALS: BMI 27.1
[2024-06-03] MEDS: amLODIPine 5 MG TAB PO SCH (10:55)
[2024-06-03 11:36] LABS: Glucose,Whole Blood 229 mg/dL (70-110)
--- NOTE | 2024-06-03 11:59 | P.PN ---
Subjective This is a pleasant 69 years old female who was sent by her mold chipper Dr. Carrillo to the hospital because she failed outpatient treatment for her respiratory symptoms. She was treated with Z-García for few days with no much improvement She presents because of central chest pain and both sides of the rib cage associated with coughing Also with some dyspnea and she makes little of phlegm which is sent for culture She denies GI/ symptoms No headache dizziness She denies smoking alcohol or illicit drugs Patient does not use oxygen at home She is afebrile and vitals are stable She has leukocytosis of 19,000 rest of labs were unremarkable CBC, BMP Liver enzymes mildly elevated and INR are negative Influenza A and type B, RSV, SARS (coronavirus) are undetected Chest x-ray showing bilateral patchy infiltrate I reviewed chest x-ray by myself and agree with this with more infiltrate and obliteration of the left costophrenic angle on the left side EKG showing sinus tachycardia at [address]-T changes 06/03 Patient feels better regarding her breathing Occasional cough no significant chest pain She remains on IV ceftriaxone Pro- Calcitonin and culture are pending She complaining from hemorrhoids and topical treatment is provided Review of systems CONSTITUTIONAL: No fever, no malaise, no fatigue. HEENT: No recent visual problems or hearing problems. Denied any sore throat. CARDIOVASCULAR: No orthopnea, PND, no palpitations, no syncope. HEMATOLOGICAL: Denies any bleeding or petechiae. GENITOURINARY: Denies any burning micturition, frequency, or urgency. MUSCULOSKELETAL/RHEUMATOLOGICAL: Denies any joint pain, swelling, or any muscle pain. ENDOCRINE: Denies any polyuria or polydipsia. Active Medications Generic Name Dose Route Start Last Admin Trade Name Freq PRN Reason Stop Dose Admin Acetaminophen 650 mg 06/02/24 14:08 06/02/24 18:46 Acetaminophen Tab 325 Mg Tab PO 650 mg Q4HR PRN Administration Mild Pain or Fever > 100.5 Albuterol/Ipratropium 3 ml 06/02/24 14:08 Ipratropium-Albuterol 3 Ml Neb INHALATION RT-Q2H PRN Shortness Of Breath Or Wheezing Albuterol/Ipratropium 3 ml 06/02/24 16:00 06/03/24 08:32 Ipratropium-Albuterol 3 Ml Neb INHALATION 3 ml RT-QID CARLOS Administration Amlodipine Besylate 5 mg 06/03/24 09:00 06/03/24 10:55 Amlodipine 5 Mg Tab PO 5 mg DAILY CARLOS Administration Artificial Tears 1 drops 06/03/24 11:38 Artificial Tears-Hypromellose Drops 15 Ml Btl BOTH EYES QID PRN Dry Eye(s) Atorvastatin Calcium 20 mg 06/03/24 21:00 Atorvastatin 20 Mg Tab PO MoFr@2100 [facility] Budesonide/Formoterol Fumarate 2 puff 06/03/24 08:00 06/03/24 08:33 Symbicort 160-4.5 Mcg Inhaler INHALATION 2 puff RT-BID CARLOS Administration Cyclobenzaprine HCl 10 mg 06/02/24 21:08 06/03/24 00:08 Cyclobenzaprine 10 Mg Tab PO 10 mg TID PRN Administration Pain Dextrose/Water 25 ml 06/02/24 22:44 Dextrose 50% Syringe 50 Ml IVP PER PROTOCOL PRN Hypoglycemia Protocol Dextrose/Water 50 ml 06/02/24 22:44 Dextrose 50% Syringe 50 Ml IVP PER PROTOCOL PRN Hypoglycemia Protocol Famotidine 20 mg 06/03/24 21:00 Famotidine 20 Mg Tab PO BID [facility] Gabapentin 600 mg 06/02/24 21:09 06/03/24 08:53 Gabapentin 300 Mg Cap PO 600 mg BID@0900,2100 [facility] Administration Gabapentin 300 mg 06/03/24 15:00 Gabapentin 300 Mg Cap PO DAILY@1500 CARLOS Heparin Sodium (Porcine) 5,000 unit 06/03/24 09:00 06/03/24 08:54 Heparin Sodium,Porcine 5,000 Unit/Ml 1 Ml Vial SQ 5,000 unit Q12HR CARLOS Administration Hydrocortisone Acetate 25 mg 06/03/24 12:00 Hydrocortisone Suppository 25 Mg Supp RECTAL 06/08/24 11:59 DAILY [facility] Ceftriaxone Sodium 1 gm/ 50 mls @ 100 mls/hr 06/03/24 09:00 06/03/24 08:58 Sodium Chloride IVPB 100 mls/hr Q24HR [facility] Administration Protocol Insulin Aspart 0 unit 06/03/24 07:30 06/03/24 06:49 Insulin Aspart (Novolog) 100 Unit/Ml Vial SQ 2 unit ACHS CARLOS Administration Protocol Meloxicam 15 mg 06/03/24 09:00 06/03/24 08:53 Meloxicam 7.5 Mg Tab PO 15 mg DAILY CARLOS Administration Methylprednisolone Sodium Succinate 60 mg 06/02/24 18:00 06/03/24 06:48 Methylprednisolone Sod Succi 125 Mg/2 Ml Vial IV 60 mg Q6HR CARLOS Administration Naloxone HCl 0.2 mg 06/02/24 14:08 Naloxone 0.4 Mg/Ml 1 Ml Vial IVP Q2M PRN Opioid Reversal Witch Saumya 1 each 06/03/24 07:43 Witch Saumya 1 Each Med..Pad TOPICAL BID PRN Hemorrhoids Objective - Vital Signs Vital signs: Vital Signs Temp 97.8 F 06/03/24 07:27 Pulse 90 06/03/24 08:46 Resp 18 06/03/24 07:27 BP 141/82 06/03/24 07:27 Pulse Ox 95 06/03/24 07:27 FiO2 Intake & Output 06/02/24 06/03/24 06/03/24 18:59 06:59 18:59 Intake Total 760 Balance 760 Weight 67.132 kg 67.132 kg Intake: Oral 760 Other: Voiding Method Toilet Diaper # Voids 5 1 - Exam GENERAL: The patient is alert and oriented x3, not in any acute distress. Well developed, well nourished. Wheeze HEENT: Pupils are round and equally reacting to light. EOMI. No scleral icterus. No conjunctival pallor. Normocephalic, atraumatic. No pharyngeal erythema. No thyromegaly. CARDIOVASCULAR: S1 and S2 present. No murmurs, rubs, or gallops. PULMONARY: Chest is clear to auscultation, no wheezing , no crackles. ABDOMEN: Soft, nontender, nondistended, normoactive bowel sounds. No palpable organomegaly. MUSCULOSKELETAL: No joint swelling or deformity. EXTREMITIES: No cyanosis, clubbing, or pedal edema. NEUROLOGICAL: Gross neurological examination did not reveal any focal deficits. SKIN: No rashes. no petechiae. - Labs CBC & Chem 7: 06/02/24 12:27 06/02/24 12:27 Labs: Abnormal Lab Results - Last 24 Hours (Table) 06/02/24 06/02/24 06/02/24 Range/Units 12:27 12: 12:27 WBC 19.0 H (3.8-10.6) k/uL Plt Count 537 H (150-450) k/uL Neutrophils # 13.2 H (1.3-7.7) k/uL Sodium 135 L (137-145) mmol/L Chloride 97 L (98-107) mmol/L Glucose 123 H (74-99) mg/dL POC Glucose (mg/dL) (70-110) mg/dL Hemoglobin A1c 6.2 H (<=6.0) % AST 66 H (14-36) U/L ALT 47 H (4-34) U/L Alkaline Phosphatase 136 H (38-126) U/L 06/03/24 06/03/24 Range/Units 06:17 11:35 WBC (3.8-10.6) k/uL Plt Count (150-450) k/uL Neutrophils # (1.3-7.7) k/uL Sodium (137-145) mmol/L Chloride (98-107) mmol/L Glucose (74-99) mg/dL POC Glucose (mg/dL) 248 H 229 H (70-110) mg/dL Hemoglobin A1c (<=6.0) % AST (14-36) U/L ALT (4-34) U/L Alkaline Phosphatase (38-126) U/L Assessment and Plan Assessment: Bilateral left lower lobe pneumonia more than right who failed outpatient treatment Leukocytosis secondary to above Acute COPD exacerbation Plan: Continue with IV Solu-Medrol Continue with ceftriaxone Pulmonary team consult Follow-up culture result Continue with bronchodilator Labs and medication were reviewed.. Continue same treatment. Continue with symptomatic treatment. Resume home medication. Monitor labs and vitals. DVT and GI prophylaxis. Further recommendations as per clinical course of the patient DVT prophylaxis: Subcutaneous heparin GI Prophylaxis: Pepcid PT/OT: Pending Prognosis is guarded
--- NOTE | 2024-06-03 14:28 | P.CNPUL ---
History of Present Illness Consult date: 06/03/24 Requesting physician: Caio E Artemio Reason for consult: dyspnea, COPD Chief complaint: Shortness of breath, cough, congestion History of present illness: This is a pleasant 69-year-old female patient with a known history of chronic obstructive pulmonary disease, former smoker who follows with Dr. Jade in our office. She was seen earlier this week and initiated on antibiotics and steroids. She was not improving and presented here to the emergency room yesterday with complaints of increasing cough, congestion and shortness of breath. She has had clear productive sputum and chills. Chest x-ray reveals patchy bibasilar airspace opacities. Evidence of COPD. White count 19.0. Hemoglobin 13.3. Platelets 537. Sodium 135. Potassium 4.0. Bicarb 27. BUN 13. Creatinine 0.72. Glucose 123. AST 66. ALT 47. Viral screen is negative. She has been initiated on DuoNeb and elations, Symbicort, Solu-Medrol. Antibiotics in the form of ceftriaxone. Heparin for DVT prophylaxis. In consultation on the regular medical floor. She is currently resting in bed. Awake and alert in no acute distress. She does have a loose productive cough. She is maintaining O2 saturations in the mid 90s on 3 L/min per nasal cannula. Review of Systems REVIEW OF SYSTEMS: CONSTITUTIONAL: Denies any recent significant weight loss or weight gain. EYES: Denies change in vision. EARS, NOSE, MOUTH, THROAT: Denies headaches, denies sore throat. CARDIOVASCULAR: Denies chest pain, palpitations or syncopal episodes. RESPIRATORY: Positive for shortness of breath, cough, congestion no hemoptysis. GASTROINTESTINAL: Denies change in appetite, denies abdominal pain GENITOURINARY: Denies hematuria, denies infections. MUSKULOSKELETAL: Denies pain, denies swelling. INTEGUMENTARY: Denies rash, denies eczema. NEUROLOGICAL: Denies recent memory loss, no recent seizure activity. PSYCHIATRIC: Denies anxiety, denies depression. HEMATOLOGIC/LYMPHATIC: Denies anemia, denies enlarged lymph nodes. Past Medical History Past Medical History: COPD, GERD/Reflux, Pneumonia Additional Past Medical History / Comment(s): pneumonia several months ago, still has cough & bringing up yellow phlegm, hx. 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 History of Any Multi-Drug Resistant Organisms: None Reported Past Surgical History: Appendectomy, Bowel Resection, Cholecystectomy, Hernia Repair, Hysterectomy, Orthopedic Surgery, Tonsillectomy Additional Past Surgical History / Comment(s): hiatal hernia repair, pamela cataracts removed, cyst removed under chin x3, fatty tumor removed right shoul roe blade, trigger finger surgeries pamela hands, partial brace inserted right wrist, right rib resection, bunionectomy left foot Past Anesthesia/Blood Transfusion Reactions: No Reported Reaction Smoking Status: Former smoker Past Alcohol Use History: None Reported Past Drug Use History: None Reported Medications and Allergies Home Medications Medication Instructions Recorded Confirmed Type Fluticasone/Vilanterol [Breo 1 puff INHALATION RT-DAILY 11/19/22 06/02/24 History Ellipta 200-25 Mcg Inhaler] Azithromycin [Zithromax Z Pack] See Taper PO DIRECTED 06/02/24 06/02/24 History EPINEPHrine (Auto Inject) [Epipen] 0.3 mg IM ONCE PRN 06/02/24 06/02/24 History Gabapentin [Neurontin] 300 mg PO DAILY@1500 06/02/24 06/02/24 History Gabapentin [Neurontin] 600 mg PO BID@0900,2100 06/02/24 06/02/24 History Ipratropium-Albuterol Nebulize 3 ml INHALATION RT-QID 06/02/24 06/02/24 History [Duoneb 0.5 mg-3 mg/3 ml Soln] Meloxicam [Mobic] 15 mg PO DAILY 06/02/24 06/02/24 History Metaxalone [Skelaxin] 800 mg PO TID PRN 06/02/24 06/02/24 History Gummy 2 tab PO DAILY 06/02/24 06/02/24 History Rosuvastatin [Crestor] 10 mg PO MOFR 06/02/24 06/02/24 History amLODIPine [Norvasc] 5 mg PO DAILY 06/02/24 06/02/24 History cefuroxime axetiL [Ceftin] 500 mg PO BID 06/02/24 06/02/24 History valACYclovir HCL [Valtrex] 2,000 mg PO Q12H PRN 06/02/24 06/02/24 History Allergies Allergy/AdvReac Type Severity Reaction Status Date / Time bee venom protein (honey bee) Allergy Anaphylaxis Verified 06/02/24 15:39 Quinolones Allergy was told Verified 06/02/24 15:39 to stay away from per neurologist sulfamethoxazole Allergy Anaphylaxis Verified 06/02/24 15:39 [From Bactrim] trimethoprim [From Bactrim] Allergy Anaphylaxis Verified 06/02/24 15:39 Physical Exam Vitals: Vital Signs Temp Pulse Pulse Pulse Resp BP BP 06/03/24 13:19 97.7 F 101 H 16 108/66 06/03/24 12:34 88 06/03/24 12:22 88 06/03/24 08:46 90 06/03/24 08:33 90 06/03/24 07:27 97.8 F 93 18 141/82 06/03/24 00:00 97.6 F 91 20 118/75 06/02/24 21:00 89 18 06/02/24 19:04 98.0 F 89 18 118/74 06/02/24 18:43 100 18 128/70 06/02/24 18:25 97.8 F 77 19 117/74 06/02/24 17:59 88 17 120/66 06/02/24 16:19 73 06/02/24 16:10 70 Pulse Ox 06/03/24 13:19 95 06/03/24 12:34 06/03/24 12:22 06/03/24 08:46 06/03/24 08:33 06/03/24 07:27 95 06/03/24 00:00 92 L 06/02/24 21:00 06/02/24 19:04 94 L 06/02/24 18:43 94 L 06/02/24 18:25 94 L 06/02/24 17:59 95 06/02/24 16:19 06/02/24 16:10 Intake and Output 06/02/24 06/03/24 06/03/24 22:59 06:59 14:59 Intake Total 760 Balance 760 Intake: Oral 760 Other: Voiding Method Toilet Diaper # Voids 5 1 Weight 67.132 kg 67.132 kg GENERAL EXAM: Alert, pleasant 69-year-old female, on 3 L nasal cannula, fairly comfortable in no apparent distress. HEAD: Normocephalic. EYES: Normal reaction of pupils, equal size. NOSE: Clear with pink turbinates. THROAT: No erythema or exudates. NECK: No masses, no JVD. CHEST: No chest wall deformity. LUNGS: Equal air entry with bilateral scattered coarse rhonchi. CVS: S1 and S2 normal with no audible murmur, regular rhythm. ABDOMEN: No hepatosplenomegaly, normal bowel sounds, no guarding or rigidity. SPINE: No scoliosis or deformity SKIN: No rashes CENTRAL NERVOUS SYSTEM: No focal deficits, tone is normal in all 4 extremities. EXTREMITIES: There is no peripheral edema. No clubbing, no cyanosis. Peripheral pulses are intact. Results - Laboratory Findings CBC and BMP: 06/02/24 12:27 06/02/24 12:27 PT/INR, D-dimer PT 11.1 sec (10.0-12.5) 06/02/24 12: INR 1.0 (<1.2) 06/02/24 12:27 Abnormal lab findings: Abnormal Labs 06/02/24 06/02/24 06/02/24 12:27 12:27 12:27 WBC 19.0 H Plt Count 537 H Neutrophils # 13.2 H Sodium 135 L Chloride 97 L Glucose 123 H POC Glucose (mg/dL) Hemoglobin A1c 6.2 H AST 66 H ALT 47 H Alkaline Phosphatase 136 H 06/03/24 06/03/24 06:17 11:35 WBC Plt Count Neutrophils # Sodium Chloride Glucose POC Glucose (mg/dL) 248 H 229 H Hemoglobin A1c AST ALT Alkaline Phosphatase - Diagnostic Findings Chest x-ray: image reviewed Assessment and Plan Assessment: Acute hypoxic respiratory failure secondary to suspected community-acquired pneumonia failed outpatient treatment Acute exacerbation of chronic obstructive pulmonary disease secondary to above Former smoker Hypertension Hyperlipidemia Plan: The patient was seen and evaluated Chest x-ray, labs and medications reviewed Continue DuoNeb inhalations, Symbicort Continue Solu-Medrol Continue ceftriaxone Check a procalcitonin Titrate the FiO2 as tolerated We will continue to follow and make further recommendations based on her clinical status I have personally seen and examined the patient, performed the documentation and the assessment and plan as written. Number of minutes spent on the visit: 20 Dictation was produced using [employer] software. Please excuse any grammatical, word or spelling errors.
[2024-06-03] MEDS: GABAPENTIN 300 MG CAP PO SCH (16:01)
[2024-06-03 16:28] LABS: Glucose,Whole Blood 334 mg/dL (70-110)
[2024-06-03] MEDS: HYDROCORTISONE SUPPOSITORY 25 MG SUPP RECTAL SCH (16:32)
[2024-06-03] MEDS: ARTIFICIAL TEARS-HYPROMELLOSE DROPS 15 ML BTL BOTH EYES PRN (16:34)
[2024-06-03 20:17] LABS: Glucose,Whole Blood 313 mg/dL (70-110)
[2024-06-03] MEDS: ATORVASTATIN 20 MG TAB PO SCH (21:14)
[2024-06-03] MEDS: FAMOTIDINE 20 MG TAB PO SCH (21:14)
[2024-06-04 06:14] LABS: Glucose,Whole Blood 267 mg/dL (70-110)
--- NOTE | 2024-06-04 10:12 | P.PN ---
Subjective Progress Note Date: 06/04/24 Principal diagnosis: Shortness of breath. This is a pleasant 69-year-old female patient with a known history of chronic obstructive pulmonary disease, former smoker who follows with Dr. Jade in our office. She was seen earlier this week and initiated on antibiotics and steroi ds. She was not improving and presented here to the emergency room yesterday with complaints of increasing cough, congestion and shortness of breath. She has had clear productive sputum and chills. Chest x-ray reveals patchy bibasilar airspace opacities. Evidence of COPD. White count 19.0. Hemoglobin 13.3. Platelets 537. Sodium 135. Potassium 4.0. Bicarb 27. BUN 13. Creatinine 0.72. Glucose 123. AST 66. ALT 47. Viral screen is negative. She has been initiated on DuoNeb and elations, Symbicort, Solu-Medrol. Antibiotics in the form of ceftriaxone. Heparin for DVT prophylaxis. In consultation on the regular medical floor. She is currently resting in bed. Awake and alert in no acute distress. She does have a loose productive cough. She is maintaining O2 saturations in the mid 90s on 3 L/min per nasal cannula. Progress note dated June 04, 2024. 69-year-old female with a known history of COPD. The patient follows with one of my partners. The patient was seen earlier this week, and was initiated on antibiotics and corticosteroids, but was not improving, so she came to the ER to be evaluated. She was admitted with a COPD exacerbation. Currently, she is on 4 L of oxygen. No IV fluids. She is resting comfortably in bed. No acute distress. No audible wheezing or use of accessory muscles. Laboratory gold, the only new blood test was a glucose of 267. Objective - Vital Signs Vital signs: Vital Signs Temp 97.8 F 06/04/24 07:00 Pulse 88 06/04/24 07:35 Resp 20 06/04/24 07:35 BP 116/70 06/04/24 07:00 Pulse Ox 93 L 06/04/24 07:00 FiO2 Intake & Output 06/03/24 06/04/24 06/04/24 18:59 06:59 18:59 Intake Total 760 240 Balance 760 240 Weight 67.132 kg Intake: Oral 760 240 Other: Voiding Method Toilet Diaper # Voids 2 4 - Exam No acute distress, oriented 3. Currently on 4 L. HEENT examination is grossly unremarkable. Mucous membranes are moist. No oral lesions. Neck supple. Full range of motion. No adenopathy thyromegaly or neck vein distention. Cardiovascular examination reveals regular rhythm rate. S1-S2 normal. No S3 or S4. No discernible murmur noted. Lungs reveal coarse bilateral expiratory rhonchi. Bilateral wheezes are noted. No crackles. Breath sounds are equal bilaterally. Abdomen soft bowel sounds are heard. No masses or tenderness. Extremities are intact. No cyanosis clubbing or edema. Skin is without rash or lesion. Neurologic examination is brief but nonfocal. - Labs CBC & Chem 7: 06/02/24 12:27 06/02/24 12:27 Labs: Abnormal Lab Results - Last 24 Hours (Table) 06/03/24 06/03/24 06/03/24 Range/Units 11:35 16:27 20:15 POC Glucose (mg/dL) 229 H 334 H 313 H (70-110) mg/dL 06/04/24 Range/Units 06:13 POC Glucose (mg/dL) 267 H (70-110) mg/dL Microbiology - Last 24 Hours (Table) 06/02/24 12:44 Blood Culture - Preliminary Blood 06/02/24 12:44 Blood Culture - Preliminary Blood 06/02/24 17:49 Gram Stain - Preliminary Sputum Assessment and Plan Assessment: Acute hypoxic respiratory failure secondary to suspected community-acquired pneumonia. Procalcitonin level was 0.07. Acute exacerbation of chronic obstructive pulmonary disease. Former smoker. Hypertension. Hyperlipidemia. Plan: Plan dated June 04, 2024. The patient's procalcitonin level was normal. Antibiotics should be discontinued. This probably represents a viral tracheobronchitis. Labs, x- rays, and medications are reviewed. We will continue to follow the patient, make recommendations along the way. Prognosis is guarded. Time with Patient: Less than 30
[2024-06-04 10:15] LABS: Basophils # (M) 0 X 10*3/uL (0.00-0.10); Eosinophils # (M) 0 X 10*3/uL (0.04-0.35); HCT 35.8 % (37.2-46.3); HGB 11.2 g/dL (12.0-15.0); Lymphocytes # (M) 1.28 X 10*3/uL (0.90-5.00); MCH 29.9 pg (27.0-32.0); MCHC 31.3 g/dL (32.0-37.0); MCV 95.5 FL (80.0-97.0); Mean Platelet Volume 10.2 FL (9.5-12.2); Metamyelocytes % 2 % (0-0); Monocytes # (M) 1.28 X 10*3/uL (0.20-1.00); NRBC Per 100 WBC 0 X 10*3/uL (0.00-0.01); Neutrophils # (M) 22.54 X 10*3/uL (1.80-7.70); Neutrophils % (M) 88 %; Nucleated Red Blood Cells 1 /100 WBCS; Platelet Count 473 X 10*3/uL (140-440); RBC 3.75 X 10*6/uL (4.10-5.20); RDW 14.3 % (11.5-14.5); WBC 25.61 X 10*3/uL (4.50-10.00)
[2024-06-04 10:23] LABS: ALT 65 U/L (8-44); AST 51 U/L (13-35); Albumin 3.8 g/dL (3.8-4.9); Albumin/Globulin Ratio 1.27 Ratio (1.60-3.17); Alkaline Phosphatase 107 U/L (41-126); BUN/Creat Ratio 16.43 Ratio (12.00-20.00); Bilirubin, Conjugated <0.20 mg/dL (0.20-0.40); Blood Urea Nitrogen 11.5 mg/dL (9.0-27.0); Calcium 9.5 mg/dL (8.7-10.3); Carbon Dioxide 23.7 mmol/L (21.6-31.8); Chloride 97 mmol/L (96-109); Glucose 312 mg/dL (70-110); Potassium 4.1 mmol/L (3.5-5.5); Sodium 137 mmol/L (135-145); Total Bilirubin <0.2 mg/dL (0.3-1.2); Total Protein 6.8 g/dL (6.2-8.2)
[2024-06-04 11:30] LABS: Glucose,Whole Blood 163 mg/dL (70-110)
--- NOTE | 2024-06-04 13:04 | P.PN ---
Subjective Progress Note Date: 06/04/24 69 years old female who was sent by her mixer operator vacuum pan salt Dr. Carrillo to the hospital because she failed outpatient treatment for her respiratory symptoms. She was treated with Z-García for few days with no much improvement She presents because of central chest pain and both sides of the rib cage associated with coughing Also with some dyspnea and she makes little of phlegm which is sent for culture She denies GI/ symptoms No headache dizziness She denies smoking alcohol or illicit drugs Patient does not use oxygen at home She is afebrile and vitals are stable She has leukocytosis of 19,000 rest of labs were unremarkable CBC, BMP Liver enzymes mildly elevated and INR are negative Influenza A and type B, RSV, SARS (coronavirus) are undetected Chest x-ray showing bilateral patchy infiltrate I reviewed chest x-ray by myself and agree with this with more infiltrate and obliteration of the left costoph renic angle on the left side EKG showing sinus tachycardia at [address]-T changes 06/03 Patient feels better regarding her breathing Occasional cough no significant chest pain She remains on IV ceftriaxone Pro- Calcitonin and culture are pending She complaining from hemorrhoids and topical treatment is provided 06/04: patient seen and evaluated at bedside, on evaluation patient continued to complain of shortness of breath, does complain of perioral breakout, topical hydrocortisone cream ordered, has cough and productive sputum GENERAL: The patient is alert and oriented x3, ill appearance, nasal cannula in place HEENT: Pupils are round and equally reacting to light. CARDIOVASCULAR: S1 and S2 present. PULMONARY: C decreased breath sounds bilaterally, rhonchi audible ABDOMEN: Soft, nontender, nondistended, normoactive bowel sounds. No palpable organomegaly. MUSCULOSKELETAL: No joint swelling or deformity. EXTREMITIES: No cyanosis, clubbing, or pedal edema. NEUROLOGICAL: Gross neurological examination did not reveal any focal deficits. Assessment: acute hypoxic respiratory failure secondary to community-acquired pneumonia acute exacerbation of COPD sepsis secondary to pneumonia hypertension hyperlipidemia Plan: * in regards to hypoxic respiratory failure continue patient on pulmonary hygiene, continue IV Rocephin * pulmonary medicine consulted, continue breathing treatments on DuoNeb, continue Symbicort continue IV Solu-Medrol * in regards to hypertension continue amlodipine * in regards to sepsis, blood cultures sputum cultures ordered * Labs and medication were reviewed. * DVT prophylaxis: Subcutaneous heparin * GI Prophylaxis: Pepcid Objective - Vital Signs Vital signs: Vital Signs Temp 97.8 F 06/04/24 07:00 Pulse 88 06/04/24 07:35 Resp 20 06/04/24 07:35 BP 116/70 06/04/24 07:00 Pulse Ox 93 L 06/04/24 07:00 FiO2 Intake & Output 06/03/24 06/04/24 06/04/24 18:59 06:59 18:59 Intake Total 760 240 Balance 760 240 Weight 67.132 kg Intake: Oral 760 240 Other: Voiding Method Toilet Diaper # Voids 2 4 - Labs CBC & Chem 7: 06/04/24 03:16 06/04/24 03:16 Labs: Abnormal Lab Results - Last 24 Hours (Table) 06/03/24 06/03/24 06/03/24 Range/Units 11:35 16:27 20:15 POC Glucose (mg/dL) 229 H 334 H 313 H (70-110) mg/dL 06/04/24 Range/Units 06:13 POC Glucose (mg/dL) 267 H (70-110) mg/dL Microbiology - Last 24 Hours (Table) 06/02/24 12:44 Blood Culture - Preliminary Blood 06/02/24 12:44 Blood Culture - Preliminary Blood 06/02/24 17:49 Gram Stain - Preliminary Sputum
[2024-06-04] MEDS: guaiFENesin 600 MG TABLET.ER PO SCH (15:45)
[2024-06-04 16:49] LABS: Glucose,Whole Blood 256 mg/dL (70-110)
[2024-06-04] MEDS: HYDROCORTISONE 1% CREAM 454 GM JAR TOPICAL SCH (17:36)
[2024-06-04 21:08] LABS: Glucose,Whole Blood 296 mg/dL (70-110)
[2024-06-05] MEDS: IPRATROPIUM-ALBUTEROL 3 ML NEB INHALATION PRN (04:28)
[2024-06-05 06:48] LABS: Glucose,Whole Blood 233 mg/dL (70-110)
[2024-06-05 11:38] LABS: Glucose,Whole Blood 197 mg/dL (70-110)
--- NOTE | 2024-06-05 12:09 | P.PN ---
Subjective Progress Note Date: 06/05/24 This is a pleasant 69-year-old female patient with a known history of chronic obstructive pulmonary disease, former smoker who follows with Dr. Jade in our office. She was seen earlier this week and initiated on antibiotics and steroids. She was not improving and presented here to the emergency room y esterday with complaints of increasing cough, congestion and shortness of breath. She has had clear productive sputum and chills. Chest x-ray reveals patchy bibasilar airspace opacities. Evidence of COPD. White count 19.0. Hemoglobin 13.3. Platelets 537. Sodium 135. Potassium 4.0. Bicarb 27. BUN 13. Creatinine 0.72. Glucose 123. AST 66. ALT 47. Viral screen is negative. She has been initiated on DuoNeb and elations, Symbicort, Solu-Medrol. Antibiotics in the form of ceftriaxone. Heparin for DVT prophylaxis. In consultation on the regular medical floor. She is currently resting in bed. Awake and alert in no acute distress. She does have a loose productive cough. She is maintaining O2 saturations in the mid 90s on 3 L/min per nasal cannula. Progress note dated June 04, 2024. 69-year-old female with a known history of COPD. The patient follows with one of my partners. The patient was seen earlier this week, and was initiated on antibiotics and corticosteroids, but was not improving, so she came to the ER to be evaluated. She was admitted with a COPD exacerbation. Currently, she is on 4 L of oxygen. No IV fluids. She is resting comfortably in bed. No acute distress. No audible wheezing or use of accessory muscles. Laboratory gold, the only new blood test was a glucose of 267. The patient is seen today June 05, 2024 in follow-up on the regular medical floor. She is currently sitting up in a chair at the bedside. Awake and alert in no acute distress. Feeling a bit better. Maintaining O2 saturations in the 90s on 4 L/min per nasal cannula. No IV fluids. She is continued on Solu- Medrol, Symbicort, DuoNeb inhalations. Her procalcitonin was negative at 0.07. No need for antibiotics. Glucose 197. She is afebrile. Hemodynamically stable. Heparin for DVT prophylaxis. Objective - Vital Signs Vital signs: Vital Signs Temp 98.4 F 06/05/24 07:00 Pulse 84 06/05/24 09:42 Resp 18 06/05/24 08:45 BP 132/82 06/05/24 07:00 Pulse Ox 98 06/05/24 09:22 FiO2 Intake & Output 06/04/24 06/05/24 06/05/24 18:59 06:59 18:59 Intake Total 240 Output Total 300 Balance 240 -300 Intake: Oral 240 Output: Urine 300 Other: Voiding Method Toilet Toilet Toilet Diaper Diaper Diaper # Voids 2 3 # Bowel Movements 2 - Exam GENERAL EXAM: Alert, sitting up in a chair, on 4 L nasal cannula, comfortable in no apparent distress. HEAD: Normocephalic. EYES: Normal reaction of pupils, equal size. NOSE: Clear with pink turbinates. THROAT: No erythema or exudates. NECK: No masses, no JVD. CHEST: No chest wall deformity. LUNGS: Equal air entry with bilateral scattered rhonchi. CVS: S1 and S2 normal with no audible murmur, regular rhythm. ABDOMEN: No hepatosplenomegaly, normal bowel sounds, no guarding or rigidity. SPINE: No scoliosis or deformity SKIN: No rashes CENTRAL NERVOUS SYSTEM: No focal deficits, tone is normal in all 4 extremities. EXTREMITIES: There is no peripheral edema. No clubbing, no cyanosis. Peripheral pulses are intact. - Labs CBC & Chem 7: 06/04/24 03:16 06/04/24 03:16 Labs: Abnormal Lab Results - Last 24 Hours (Table) 06/04/24 06/04/24 06/05/24 Range/Units 16:48 21:07 06:47 POC Glucose (mg/dL) 256 H 296 H 233 H (70-110) mg/dL 06/05/24 Range/Units 11:37 POC Glucose (mg/dL) 197 H (70-110) mg/dL Microbiology - Last 24 Hours (Table) 06/02/24 12:44 Blood Culture - Preliminary Blood 06/02/24 12:44 Blood Culture - Preliminary Blood 06/02/24 17:49 Gram Stain - Preliminary Sputum Sputum Culture - Preliminary Assessment and Plan Assessment: Acute hypoxic respiratory failure secondary to exacerbation of COPD, procalcitonin was negative Former smoker Hypertension Hyperlipidemia Plan: The patient was seen and evaluated Labs and medications reviewed Continue DuoNeb inhalations, Symbicort Continue Solu-Medrol Titrate the FiO2 as tolerated We will continue to follow I have personally seen and examined the patient, performed the documentation and the assessment and plan as written. Number of minutes spent on the visit: 10 Dictation was produced using [employer] dictation software. Please excuse any grammatical, word or spelling errors.
--- NOTE | 2024-06-05 12:10 | P.PN ---
Subjective Progress Note Date: 06/05/24 69 years old female who was sent by her vehicle maintenance technician Dr. Carrillo to the hospital because she failed outpatient treatment for her respiratory symptoms. She was treated with Z-García for few days with no much improvement She presents because of central chest pain and both sides of the rib cage associated with coughing Also with some dyspnea and she makes little of phlegm which is sent for culture She denies GI/ symptoms No headache dizziness She denies smoking alcohol or illicit drugs Patient does not use oxygen at home She is afebrile and vitals are stable She has leukocytosis of 19,000 rest of labs were unremarkable CBC, BMP Liver enzymes mildly elevated and INR are negative Influenza A and type B, RSV, SARS (coronavirus) are undetected Chest x-ray showing bilateral patchy infiltrate I reviewed chest x-ray by myself and agree with this with more infiltrate and obliteration of the left costoph renic angle on the left side EKG showing sinus tachycardia at [address]-T changes 06/03 Patient feels better regarding her breathing Occasional cough no significant chest pain She remains on IV ceftriaxone Pro- Calcitonin and culture are pending She complaining from hemorrhoids and topical treatment is provided 06/04: patient seen and evaluated at bedside, on evaluation patient continued to complain of shortness of breath, does complain of perioral breakout, topical hydrocortisone cream ordered, has cough and productive sputum 06/05- patient seen and evaluated at bedside, patient remains on 4 L of oxygen remains afebrile, blood glucose remains elevated 230s, follow-up blood work pen ding appreciate input from pulmonary medicine, due to complaint of nasal congestion, trace epistaxis which has resolved GENERAL: The patient is alert and oriented x3, ill appearance, nasal cannula in place HEENT: Pupils are round and equally reacting to light. CARDIOVASCULAR: S1 and S2 present. PULMONARY: C decreased breath sounds bilaterally, rhonchi audible ABDOMEN: Soft, nontender, nondistended, normoactive bowel sounds. No palpable organomegaly. MUSCULOSKELETAL: No joint swelling or deformity. EXTREMITIES: No cyanosis, clubbing, or pedal edema. NEUROLOGICAL: Gross neurological examination did not reveal any focal deficits. Assessment: acute hypoxic respiratory failure secondary to community-acquired pneumonia acute exacerbation of COPD sepsis secondary to pneumonia hypertension hyperlipidemia Plan: * in regards to hypoxic respiratory failure continue patient on pulmonary hygiene, received IV Rocephin however antibiotics discontinued by pulmonary medicine * pulmonary medicine consulted, continue breathing treatments on DuoNeb, continue Symbicort continue IV Solu-Medrol, encourage use of humidifier with oxygen * in regards to hypertension continue amlodipine * in regards to sepsis, blood cultures sputum cultures ordered * Labs and medication were reviewed. * DVT prophylaxis: Subcutaneous heparin * GI Prophylaxis: Pepcid Objective - Vital Signs Vital signs: Vital Signs Temp 98.4 F 06/05/24 07:00 Pulse 86 06/05/24 09:22 Resp 18 06/05/24 07:00 BP 132/82 06/05/24 07:00 Pulse Ox 98 06/05/24 09:22 FiO2 Intake & Output 06/04/24 06/05/24 06/05/24 18:59 06:59 18:59 Intake Total 240 Output Total 300 Balance 240 -300 Intake: Oral 240 Output: Urine 300 Other: Voiding Method Toilet Toilet Diaper Diaper # Voids 2 # Bowel Movements 2 - Labs CBC & Chem 7: 06/04/24 03:16 06/04/24 03:16 Labs: Abnormal Lab Results - Last 24 Hours (Table) 06/04/24 06/04/24 06/04/24 Range/Units 03:16 03:16 11:28 WBC 25.61 H (4.50-10.00) X 10*3/uL RBC 3.75 L (4.10-5.20) X 10*6/uL Hgb 11.2 L (12.0-15.0) g/dL Hct 35.8 L (37.2-46.3) % MCHC 31.3 L (32.0-37.0) g/dL Plt Count 473 H (140-440) X 10*3/uL Neutrophils # (Manual) 22.54 H (1.80-7.70) X 10*3/uL Monocytes # (Manual) 1.28 H (0.20-1.00) X 10*3/uL Eosinophils # (Manual) 0 L (0.04-0.35) X 10*3/uL Anion Gap 16.30 H (4.00-12.00) mmol/L Glucose 312 H (70-110) mg/dL POC Glucose (mg/dL) 163 H (70-110) mg/dL Total Bilirubin <0.2 L (0.3-1.2) mg/dL AST 51 H (13-35) U/L ALT 65 H (8-44) U/L Albumin/Globulin Ratio 1.27 L (1.60-3.17) Ratio 06/04/24 06/04/24 06/05/24 Range/Units 16:48 21:07 06:47 WBC (4.50-10.00) X 10*3/uL RBC (4.10-5.20) X 10*6/uL Hgb (12.0-15.0) g/dL Hct (37.2-46.3) % MCHC (32.0-37.0) g/dL Plt Count (140-440) X 10*3/uL Neutrophils # (Manual) (1.80-7.70) X 10*3/uL Monocytes # (Manual) (0.20-1.00) X 10*3/uL Eosinophils # (Manual) (0.04-0.35) X 10*3/uL Anion Gap (4.00-12.00) mmol/L Glucose (70-110) mg/dL POC Glucose (mg/dL) 256 H 296 H 233 H (70-110) mg/dL Total Bilirubin (0.3-1.2) mg/dL AST (13-35) U/L ALT (8-44) U/L Albumin/Globulin Ratio (1.60-3.17) Ratio Microbiology - Last 24 Hours (Table) 06/02/24 12:44 Blood Culture - Preliminary Blood 06/02/24 12:44 Blood Culture - Preliminary Blood 06/02/24 17:49 Gram Stain - Preliminary Sputum Sputum Culture - Preliminary
[2024-06-05] MEDS: FLUTICASONE NASAL 50MCG/SPRAY 16GM BTL EA NOSTRIL SCH (15:57)
[2024-06-05 16:41] LABS: Glucose,Whole Blood 332 mg/dL (70-110)
[2024-06-05 21:25] LABS: Glucose,Whole Blood 219 mg/dL (70-110)
[2024-06-06 06:52] LABS: Glucose,Whole Blood 213 mg/dL (70-110)
[2024-06-06 08:47] LABS: HGB 10.2 g/dL (12.0-15.0); MCH 29.7 pg (27.0-32.0); MCHC 31.9 g/dL (32.0-37.0); MCV 93.3 FL (80.0-97.0); Mean Platelet Volume 9.9 FL (9.5-12.2); NRBC Per 100 WBC 0.03 X 10*3/uL (0.00-0.01); Platelet Count 420 X 10*3/uL (140-440); RBC 3.43 X 10*6/uL (4.10-5.20); RDW 14.3 % (11.5-14.5); WBC 23.35 X 10*3/uL (4.50-10.00)
[2024-06-06 09:01] LABS: BUN/Creat Ratio 20.12 Ratio (12.00-20.00); Blood Urea Nitrogen 16.1 mg/dL (9.0-27.0); Calcium 8.9 mg/dL (8.7-10.3); Carbon Dioxide 24.9 mmol/L (21.6-31.8); Chloride 98 mmol/L (96-109); Glucose 266 mg/dL (70-110); Potassium 4.5 mmol/L (3.5-5.5); Sodium 138 mmol/L (135-145)
[2024-06-06 11:29] LABS: Glucose,Whole Blood 187 mg/dL (70-110)
--- NOTE | 2024-06-06 13:58 | CDI ---
Documentation Clarification Form Date: 06/06/2024 01:03:55 PM From: Catherine Avila RN, CCDS Phone: [phone] Admit Date: 06/02/2024 02:09:00 PM Patient Name: Endy Springer Visit Number: [id number] Discharge Date: ATTENTION: The Clinical Documentation Specialists (CDI) and [facility] Coding Staff appreciate your assistance in clarifying documentation. Please respond to the clarification below the line at the bottom and electronically sign. The CDI & [facility] Coding staff will review the response and follow-up if needed. Please note: Queries are made part of the Legal Health Record. If you have any questions, please contact the author of this message via ITS. Doctor/Provider: Caio E Sheet Sepsis is documented in the progress starting on 06/04/24 which may lack sufficient clinical evidence/support in the medical record. Additional clarification is requested. History/Risk Factors: COPD, GERD/Reflux, Pneumonia Clinical Indicators: 69-year-old female with and recent diagnosis of pneumonia presenting with increased cough and dyspnea. Patient has been on 2 antibiotics over the past 1 week. CXR: infiltrate and obliteration of the left costophrenic angle on the left side 06/02 VS: 120/73 107 20 97.6 91% 06/02 Labs: WBC 19.0 Na 135 06/02: EKG showing sinus tachycardia at [address]-T changes H/P: Bilateral left lower lobe pneumonia more than right who failed outpatient treatment Leukocytosis secondary to above 06/04 attending progress note: Sepsis secondary to pneumonia 06/04 VS 116/70 88 20 93% 4/L NC 06/04 WBC 26.61, Neutrophils 22.54 procalcitonin 1.27 06/04 pulmonary progress note: Acute hypoxic respiratory failure secondary to suspected community-acquired pneumonia. Procalcitonin level was 0.07. Acute exacerbation of chronic obstructive pulmonary disease. Treatment: Rocephin 2 GM IVPB Once 06/02 then 1 GM 06/03-06/04 Solu-Medrol 125 MG IV Once (titrate per order) Pulmicort 0.5MG BID Preformist 20 mcg inhalation BID Please clarify if sepsis is a valid diagnosis? [x ] No, Sepsis is ruled out [ ] Yes, Sepsis is present on admission and treated as evidence by (additional clinical support): [ ] Other (please specify diagnosis) [ ] Unable to determine (Template Last Revised: November 2023) MTDD
[2024-06-06 16:48] LABS: Glucose,Whole Blood 217 mg/dL (70-110)
--- NOTE | 2024-06-06 18:16 | P.PN ---
Subjective Progress Note Date: 06/06/24 This is a pleasant 69-year-old female patient with a known history of chronic obstructive pulmonary disease, former smoker who follows with Dr. Jade in our office. She was seen earlier this week and initiated on antibiotics and steroids. She was not improving and presented here to the emergency room yesterday with complaints of increasing cough, congestion and shortness of breath. She has had clear productive sputum and chills. Chest x-ray reveals patchy bibasilar airspace opacities. Evidence of COPD. White count 19.0. Hemoglobin 13.3. Platelets 537. Sodium 135. Potassium 4.0. Bicarb 27. BUN 13. Creatinine 0.72. Glucose 123. AST 66. ALT 47. Viral screen is negative. She has been initiated on DuoNeb and elations, Symbicort, Solu-Medrol. Antibiotics in the form of ceftriaxone. Heparin for DVT prophylaxis. In consultation on the regular medical floor. She is currently resting in bed. Awake and alert in no acute distress. She does have a loose productive cough. She is maintaining O2 saturations in the mid 90s on 3 L/min per nasal cannula. Progress note dated June 04, 2024. 69-year-old female with a known history of COPD. The patient follows with one of my partners. The patient was seen earlier this week, and was initiated on antibiotics and corticosteroids, but was not improving, so she came to the ER to be evaluated. She was admitted with a COPD exacerbation. Currently, she is on 4 L of oxygen. No IV fluids. She is resting comfortably in bed. No acute distress. No audible wheezing or use of accessory muscles. Laboratory gold, the only new blood test was a glucose of 267. The patient is seen today June 05, 2024 in follow-up on the regular medical floor. She is currently sitting up in a chair at the bedside. Awake and alert in no acute distress. Feeling a bit better. Maintaining O2 saturations in the 90s on 4 L/min per nasal cannula. No IV fluids. She is continued on Solu- Medrol, Symbicort, DuoNeb inhalations. Her procalcitonin was negative at 0.07. No need for antibiotics. Glucose 197. She is afebrile. Hemodynamically stable. Heparin for DVT prophylaxis. On 06/05/2024, the patient is being seen for a follow-up. 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 Chest x-ray is not showing any acute pulmonary filtrates. The patient has a white cell count of 23 with a hemoglobin 10.2 and a platelet count of 420. Electrolytes are all within normal limits. BUN is 16 with a creatinine of 0.8. Procalcitonin level is at 0.05. Chest x-ray at time of admission shows no acute pulmonary filtrates. It is consistent with COPD. Questionable patchy changes in the lung bases probably related to atelectasis. The patient is on DuoNeb nebulized treatments [id number], Symbicort and IV Solu-Medrol 60 mg every 6 hours. Congested cough. Unable to bring up much sputum. Sputum samples collected earlier was negative for any microbial growth. Objective - Vital Signs Vital signs: Vital Signs Temp 97.4 F L 06/06/24 07:09 Pulse 86 06/06/24 08:39 Resp 17 06/06/24 08:45 BP 147/81 06/06/24 07:09 Pulse Ox 97 06/06/24 08:29 FiO2 Intake & Output 06/05/24 06/06/24 06/06/24 18:59 06:59 18:59 Other: Voiding Method Toilet Toilet Toilet Diaper Diaper # Voids 4 1 - Exam GENERAL EXAM: Alert, sitting up in a chair, on 4 L nasal cannula, comfortable in no apparent distress. HEAD: Normocephalic. EYES: Normal reaction of pupils, equal size. NOSE: Clear with pink turbinates. THROAT: No erythema or exudates. NECK: No masses, no JVD. CHEST: No chest wall deformity. LUNGS: Equal air entry with bilateral scattered rhonchi. CVS: S1 and S2 normal with no audible murmur, regular rhythm. ABDOMEN: No hepatosplenomegaly, normal bowel sounds, no guarding or rigidity. SPINE: No scoliosis or deformity SKIN: No rashes CENTRAL NERVOUS SYSTEM: No focal deficits, tone is normal in all 4 extremities. EXTREMITIES: There is no peripheral edema. No clubbing, no cyanosis. Peripheral pulses are intact. - Labs CBC & Chem 7: 06/06/24 03:32 06/06/24 03:32 Labs: Abnormal Lab Results - Last 24 Hours (Table) 06/05/24 06/05/24 06/05/24 Range/Units 11:37 16:40 21:23 WBC (4.50-10.00) X 10*3/uL RBC (4.10-5.20) X 10*6/uL Hgb (12.0-15.0) g/dL Hct (37.2-46.3) % MCHC (32.0-37.0) g/dL NRBC/100 WBC Diff (0.00-0.01) X 10*3/uL Anion Gap (4.00-12.00) mmol/L BUN/Creatinine Ratio (12.00-20.00) Ratio Glucose (70-110) mg/dL POC Glucose (mg/dL) 197 H 332 H 219 H (70-110) mg/dL C-Reactive Protein (0.00-0.80) mg/dL 06/06/24 06/06/24 06/06/24 Range/Units 03:32 03:32 06:51 WBC 23.35 H (4.50-10.00) X 10*3/uL RBC 3.43 L (4.10-5.20) X 10*6/uL Hgb 10.2 L (12.0-15.0) g/dL Hct 32.0 L (37.2-46.3) % MCHC 31.9 L (32.0-37.0) g/dL NRBC/100 WBC Diff 0.03 H (0.00-0.01) X 10*3/uL Anion Gap 15.10 H (4.00-12.00) mmol/L BUN/Creatinine Ratio 20.12 H (12.00-20.00) Ratio Glucose 266 H (70-110) mg/dL POC Glucose (mg/dL) 213 H (70-110) mg/dL C-Reactive Protein 2.90 H (0.00-0.80) mg/dL Microbiology - Last 24 Hours (Table) 06/02/24 12:44 Blood Culture - Preliminary Blood 06/02/24 12:44 Blood Culture - Preliminary Blood 06/02/24 17:49 Gram Stain - Final Sputum Sputum Culture - Final Assessment and Plan Plan: Acute hypoxic respiratory failure secondary to exacerbation of COPD, procalcitonin was negative, chest x-ray is is negative for any acute pulmonary filtrates. The patient remains on 4 L of O2 nasal cannula. Acute COPD exacerbation Shortness of breath secondary to above Former smoker Hypertension Hyperlipidemia Plan: Patient remains symptomatic Still on oxygen 4 L/min nasal cannula Continue DuoNeb inhalations Stop the Symbicort and give the patient a combination of Perforomist and Pulmicort Continue Solu-Medrol 60 mg every 6 hours Titrate the FiO2 as tolerated We will continue to follow
[2024-06-06] MEDS: FORMOTEROL FUMARATE 20 MCG/2 ML NEBU INHALATION SCH (20:06)
[2024-06-06] MEDS: BUDESONIDE 0.5 MG/2 ML NEBU INHALATION SCH (20:06)
[2024-06-06 21:06] LABS: Glucose,Whole Blood 273 mg/dL (70-110)
[2024-06-07] MEDS ORDERED: SALINE NASAL GEL 14.1 GM TUBE NASAL PRN (05:03)
[2024-06-07 06:25] LABS: Glucose,Whole Blood 205 mg/dL (70-110)
--- NOTE | 2024-06-07 06:39 | P.PN ---
Subjective Progress Note Date: 06/06/24 . 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 Carrillo to the hospital because she failed outpatient treatment for her respiratory symptoms. She was treated with Z-García for few days with no much improvement She presents because of central chest pain and both sides of the rib cage associated with coughing Also with some dyspnea and she makes little of phlegm which is sent for culture She denies GI/ symptoms No headache dizziness She denies smoking alcohol or illicit drugs Patient does not use oxygen at home She is afebrile and vitals are stable She has leukocytosis of 19,000 rest of labs were unremarkable CBC, BMP Liver enzymes mildly elevated and INR are negative Influenza A and type B, RSV, SARS (coronavirus) are undetected Chest x-ray showing bilateral patchy infiltrate I reviewed chest x-ray by myself and agree with this with more infiltrate and obliteration of the left cos tophrenic angle on the left side EKG showing sinus tachycardia at [address]-T changes 06/03 Patient feels better regarding her breathing Occasional cough no significant chest pain She remains on IV ceftriaxone Pro- Calcitonin and culture are pending She complaining from hemorrhoids and topical treatment is provided 06/04: patient seen and evaluated at bedside, on evaluation patient continued to complain of shortness of breath, does complain of perioral breakout, topical hydrocortisone cream ordered, has cough and productive sputum 06/05- patient seen and evaluated at bedside, patient remains on 4 L of oxygen remains afebrile, blood glucose remains elevated 230s, follow-up blood work pending appreciate input from pulmonary medicine, due to complaint of nasal congestion, trace epistaxis which has resolved GENERAL: The patient is alert and oriented x3, ill appearance, nasal cannula in place HEENT: Pupils are round and equally reacting to light. CARDIOVASCULAR: S1 and S2 present. PULMONARY: C decreased breath sounds bilaterally, rhonchi audible ABDOMEN: Soft, nontender, nondistended, normoactive bowel sounds. No palpable organomegaly. MUSCULOSKELETAL: No joint swelling or deformity. EXTREMITIES: No cyanosis, clubbing, or pedal edema. NEUROLOGICAL: Gross neurological examination did not reveal any focal deficits. Assessment: acute hypoxic respiratory failure secondary to community-acquired pneumonia Acute on chronic hypoxic respiratory failure, chronically wears 2 to 3 L outpatient, currently maintained on 4 L acute exacerbation of COPD Sepsis, ruled out, procalcitonin was negative hypertension hyperlipidemia GI prophylaxis DVT prophylaxis Full code Plan: * in regards to hypoxic respiratory failure continue patient on pulmonary hygiene, received IV Rocephin however antibiotics discontinued by pulmonary medicine as procalcitonin is negative * pulmonary following, continue breathing treatments on DuoNeb, continue Symb icort discontinued and patient was started on Pulmicort and will continue continue IV Solu-Medrol, encourage use of humidifier with oxygen * in regards to hypertension continue amlodipine * Labs and medication were reviewed. Encouraged increase activity as tolerated Not back to baseline continuing to be extremely bronchospastic and short of breath. Will await pulmonary clearance to determine discharge planning Overall prognosis guarded The impression and plan of care has been dictated by Sera Carter, Nurse Practitioner as directed. Dr. Antonette MD I have performed a history and examination and MDM of this patient, discussed the same with the dictator, and agree with the dictator's assessment and plan as written ,documented as a scribe. Based on total visit time, I have performed more than 50% of the visit. Objective - Vital Signs Vital signs: Vital Signs Temp 97.4 F L 06/06/24 07:09 Pulse 86 06/06/24 08:39 Resp 17 06/06/24 07:09 BP 147/81 06/06/24 07:09 Pulse Ox 97 06/06/24 08:29 FiO2 Intake & Output 06/05/24 06/06/24 06/06/24 18:59 06:59 18:59 Other: Voiding Method Toilet Toilet Diaper Diaper # Voids 4 1 - Labs CBC & Chem 7: 06/06/24 03:32 06/06/24 03:32 Labs: Abnormal Lab Results - Last 24 Hours (Table) 06/05/24 06/05/24 06/05/24 Range/Units 11:37 16:40 21:23 WBC (4.50-10.00) X 10*3/uL RBC (4.10-5.20) X 10*6/uL Hgb (12.0-15.0) g/dL Hct (37.2-46.3) % MCHC (32.0-37.0) g/dL NRBC/100 WBC Diff (0.00-0.01) X 10*3/uL Anion Gap (4.00-12.00) mmol/L BUN/Creatinine Ratio (12.00-20.00) Ratio Glucose (70-110) mg/dL POC Glucose (mg/dL) 197 H 332 H 219 H (70-110) mg/dL C-Reactive Protein (0.00-0.80) mg/dL 06/06/24 06/06/24 06/06/24 Range/Units 03:32 03:32 06:51 WBC 23.35 H (4.50-10.00) X 10*3/uL RBC 3.43 L (4.10-5.20) X 10*6/uL Hgb 10.2 L (12.0-15.0) g/dL Hct 32.0 L (37.2-46.3) % MCHC 31.9 L (32.0-37.0) g/dL NRBC/100 WBC Diff 0.03 H (0.00-0.01) X 10*3/uL Anion Gap 15.10 H (4.00-12.00) mmol/L BUN/Creatinine Ratio 20.12 H (12.00-20.00) Ratio Glucose 266 H (70-110) mg/dL POC Glucose (mg/dL) 213 H (70-110) mg/dL C-Reactive Protein 2.90 H (0.00-0.80) mg/dL Microbiology - Last 24 Hours (Table) 06/02/24 12:44 Blood Culture - Preliminary Blood 06/02/24 12:44 Blood Culture - Preliminary Blood 06/02/24 17:49 Gram Stain - Final Sputum Sputum Culture - Final
[2024-06-07 11:58] LABS: Glucose,Whole Blood 164 mg/dL (70-110)
[2024-06-07] MEDS: SALINE NASAL GEL 14.1 GM TUBE NASAL SCH (12:58)
[2024-06-07 16:41] LABS: Glucose,Whole Blood 217 mg/dL (70-110)
--- NOTE | 2024-06-07 19:35 | P.PN ---
Subjective Progress Note Date: 06/07/24 This is a pleasant 69-year-old female patient with a known history of chronic obstructive pulmonary disease, former smoker who follows with Dr. Jade in our office. She was seen earlier this week and initiated on antibiotics and steroids. She was not improving and presented here to the emergency room yesterday with complaints of increasing cough, congestion and shortness of breath. She has had clear productive sputum and chills. Chest x-ray reveals patchy bibasilar airspace opacities. Evidence of COPD. White count 19.0. Hemoglobin 13.3. Platelets 537. Sodium 135. Potassium 4.0. Bicarb 27. BUN 13. Creatinine 0.72. Glucose 123. AST 66. ALT 47. Viral screen is negative. She has been initiated on DuoNeb and elations, Symbicort, Solu-Medrol. Antibiotics in the form of ceftriaxone. Heparin for DVT prophylaxis. In consultation on the regular medical floor. She is currently resting in bed. Awake and alert in no acute distress. She does have a loose productive cough. She is maintaining O2 saturations in the mid 90s on 3 L/min per nasal cannula. Progress note dated June 04, 2024. 69-year-old female with a known history of COPD. The patient follows with one of my partners. The patient was seen earlier this week, and was initiated on antibiotics and corticosteroids, but was not improving, so she came to the ER to be evaluated. She was admitted with a COPD exacerbation. Currently, she is on 4 L of oxygen. No IV fluids. She is resting comfortably in bed. No acute distress. No audible wheezing or use of accessory muscles. Laboratory gold, the only new blood test was a glucose of 267. The patient is seen today June 05, 2024 in follow-up on the regular medical floor. She is currently sitting up in a chair at the bedside. Awake and alert in no acute distress. Feeling a bit better. Maintaining O2 saturations in the 90s on 4 L/min per nasal cannula. No IV fluids. She is continued on Solu- Medrol, Symbicort, DuoNeb inhalations. Her procalcitonin was negative at 0.07. No need for antibiotics. Glucose 197. She is afebrile. Hemodynamically stable. Heparin for DVT prophylaxis. On 06/05/2024, the patient is being seen for a follow-up. 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 Chest x-ray is not showing any acute pulmonary filtrates. The patient has a white cell count of 23 with a hemoglobin 10.2 and a platelet count of 420. Electrolytes are all within normal limits. BUN is 16 with a creatinine of 0.8. Procalcitonin level is at 0.05. Chest x-ray at time of admission shows no acute pulmonary filtrates. It is consistent with COPD. Questionable patchy changes in the lung bases probably related to atelectasis. The patient is on DuoNeb nebulized treatments [id number], Symbicort and IV Solu-Medrol 60 mg every 6 hours. Congested cough. Unable to bring up much sputum. Sputum samples collected earlier was negative for any microbial growth. On 06/07/2024, the patient reports some improvement in her symptoms of COPD exacerbation the patient is able to bring him some sputum. Less bronchospastic and wheezy compared to yesterday. She is currently on DuoNeb of chest, Perforomist and Pulmicort nebulized treatments twice a day and she remains on IV Solu-Medrol 60 mg every 6 hours. Blood sugars are mildly elevated. White cell count of 23.3 with a hemoglobin 10.2. Her procalcitonin level was 0.07. She remains on oxygen and 4 L. Objective - Vital Signs Vital signs: Vital Signs Temp 97.7 F 06/07/24 08:14 Pulse 84 06/07/24 12:04 Resp 17 06/07/24 08:14 BP 142/82 06/07/24 08:14 Pulse Ox 97 06/07/24 08:14 FiO2 Intake & Output 06/06/24 06/07/24 06/07/24 18:59 06:59 18:59 Other: Voiding Method Toilet Toilet Toilet # Voids 1 1 - Exam GENERAL EXAM: Alert, sitting up in a chair, on 4 L nasal cannula, comfortable in no apparent distress. HEAD: Normocephalic. EYES: Normal reaction of pupils, equal size. NOSE: Clear with pink turbinates. THROAT: No erythema or exudates. NECK: No masses, no JVD. CHEST: No chest wall deformity. LUNGS: Equal air entry with bilateral scattered rhonchi. CVS: S1 and S2 normal with no audible murmur, regular rhythm. ABDOMEN: No hepatosplenomegaly, normal bowel sounds, no guarding or rigidity. SPINE: No scoliosis or deformity SKIN: No rashes CENTRAL NERVOUS SYSTEM: No focal deficits, tone is normal in all 4 extremities. EXTREMITIES: There is no peripheral edema. No clubbing, no cyanosis. Peripheral pulses are intact. - Labs CBC & Chem 7: 06/06/24 03:32 06/06/24 03:32 Labs: Abnormal Lab Results - Last 24 Hours (Table) 06/06/24 06/06/24 06/07/24 Range/Units 16:47 21:04 06:23 POC Glucose (mg/dL) 217 H 273 H 205 H (70-110) mg/dL 06/07/24 Range/Units 11:57 POC Glucose (mg/dL) 164 H (70-110) mg/dL Assessment and Plan Plan: Acute hypoxic respiratory failure secondary to exacerbation of COPD, procalcitonin was negative, chest x-ray is is negative for any acute pulmonary filtrates. The patient remains on 4 L of O2 nasal cannula. Acute COPD exacerbation Shortness of breath secondary to above Former smoker Hypertension Hyperlipidemia Plan: Clinically improving Still on oxygen 4 L/min nasal cannula, wean down FiO2 to maintain saturation above 90% Will keep the same bronchodilator regimen's Continue DuoNeb inhalations Stop the Symbicort and give the patient a combination of Perforomist and Pulmicort Continue Solu-Medrol 60 mg every 6 hours Titrate the FiO2 as tolerated We will continue to follow
[2024-06-07 20:36] LABS: Glucose,Whole Blood 258 mg/dL (70-110)
[2024-06-08 06:10] LABS: Glucose,Whole Blood 273 mg/dL (70-110)
--- NOTE | 2024-06-08 09:22 | P.PN ---
Subjective Progress Note Date: 06/07/24 . 69 years old female who was sent by her feed grinder Dr. Carrillo to the hospital because she failed outpatient treatment for her respiratory symptoms. She was treated with Z-García for few days with no much improvement She presents because of central chest pain and both sides of the rib cage associated with coughing Also with some dyspnea and she makes little of phlegm which is sent for culture She denies GI/ symptoms No headache dizziness She denies smoking alcohol or illicit drugs Patient does not use oxygen at home She is afebrile and vitals are stable She has leukocytosis of 19,000 rest of labs were unremarkable CBC, BMP Liver enzymes mildly elevated and INR are negative Influenza A and type B, RSV, SARS (coronavirus) are undetected Chest x-ray showing bilateral patchy infiltrate I reviewed chest x-ray by myself and agree with this with more infiltrate and obliteration of the left cos tophrenic angle on the left side EKG showing sinus tachycardia at [address]-T changes 06/03 Patient feels better regarding her breathing Occasional cough no significant chest pain She remains on IV ceftriaxone Pro- Calcitonin and culture are pending She complaining from hemorrhoids and topical treatment is provided 06/04: patient seen and evaluated at bedside, on evaluation patient continued to complain of shortness of breath, does complain of perioral breakout, topical hydrocortisone cream ordered, has cough and productive sputum 06/05- patient seen and evaluated at bedside, patient remains on 4 L of oxygen remains afebrile, blood glucose remains elevated 230s, follow-up blood work pending appreciate input from pulmonary medicine, due to complaint of nasal congestion, trace epistaxis which has resolved 06/07/2024 Patient is seen in follow-up this morning continues to be bronchospastic reporting shortness of breath although is able to break up a little more sputum. Patient is continued on [id number] DuoNeb treatments along with IV steroids with pulmonary following. Patient chronically wears 2 L outpatient currently maintained on 3-4 and recommend to wean FiO2 as tolerated. Patient continues to report dryness of the nasal nares and will add saline gel and greg nue with humidification. Patient is afebrile with no reports of chest pain or palpitations. Review of systems: Constitutional: No reports of fatigue, fever, or chills Cardiovascular: No reports of chest pain or palpitations Respiratory: reports of continued shortness of breath and multiple episodes of bronchospastic coughing GI: No reports of nausea, vomiting, or diarrhea : No reports of dysuria or retention Neurovascular: No reports of weakness or numbness All medications have been reviewed Physical exam: GENERAL: The patient is alert and oriented x3, ill appearance, nasal cannula in place HEENT: Pupils are round and equally reacting to light. CARDIOVASCULAR: S1 and S2 present. PULMONARY: decreased breath sounds bilaterally, rhonchi audible, expiratory wheezing noted, improved aeration on today's exam ABDOMEN: Soft, nontender, nondistended, normoactive bowel sounds. No palpable organomegaly. MUSCULOSKELETAL: No joint swelling or deformity. EXTREMITIES: No cyanosis, clubbing, or pedal edema. NEUROLOGICAL: Gross neurological examination did not reveal any focal deficits. Assessment: acute hypoxic respiratory failure secondary to community-acquired pneumonia Acute on chronic hypoxic respiratory failure, chronically wears 2 to 3 L outpatient, currently maintained on 4 L acute exacerbation of COPD Sepsis, ruled out, procalcitonin was negative hypertension hyperlipidemia GI prophylaxis DVT prophylaxis Full code Plan: * in regards to hypoxic respiratory failure continue patient on pulmonary hygiene, received IV Rocephin however antibiotics discontinued by pulmonary medicine as procalcitonin is negative * pulmonary following, continue breathing treatments on DuoNeb, continue Symbicort discontinued and patient was started on Pulmicort and will continue continue IV Solu-Medrol, encourage use of humidifier with oxygen * in regards to hypertension continue amlodipine * Labs and medication were reviewed. Encouraged increase activity as tolerated Not back to baseline continuing to be extremely bronchospastic and short of breath. Will await pulmonary clearance to determine discharge planning. Possible discharge planning in the next 24 to 48 hours Overall prognosis guarded The impression and plan of care has been dictated by Sera Carter, Nurse Practitioner as directed. Dr. Antonette MD I have performed a history and examination and MDM of this patient, discussed the same with the dictator, and agree with the dictator's assessment and plan as written ,documented as a scribe. Based on total visit time, I have performed more than 50% of the visit. Objective - Vital Signs Vital signs: Vital Signs Temp 97.7 F 06/07/24 08:14 Pulse 90 06/07/24 08:14 Resp 17 06/07/24 08:14 BP 142/82 06/07/24 08:14 Pulse Ox 97 06/07/24 08:14 FiO2 Intake & Output 06/06/24 06/07/24 06/07/24 18:59 06:59 18:59 Other: Voiding Method Toilet Toilet # Voids 1 1 - Labs CBC & Chem 7: 06/06/24 03:32 06/06/24 03:32 Labs: Abnormal Lab Results - Last 24 Hours (Table) 06/06/24 06/06/24 06/06/24 Range/Units 11:28 16:47 21:04 POC Glucose (mg/dL) 187 H 217 H 273 H (70-110) mg/dL 06/07/24 Range/Units 06:23 POC Glucose (mg/dL) 205 H (70-110) mg/dL
[2024-06-08 11:49] LABS: Glucose,Whole Blood 174 mg/dL (70-110)
[2024-06-08] MEDS: NYSTATIN 100,000 UNIT/ML SUSP 500,000 UNIT/5 ML CUP PO SCH (15:42)
[2024-06-08] MEDS: LORATADINE 10 MG TAB PO SCH (15:42)
[2024-06-08 16:54] LABS: Glucose,Whole Blood 277 mg/dL (70-110)
[2024-06-08 20:10] LABS: Glucose,Whole Blood 224 mg/dL (70-110)
--- NOTE | 2024-06-08 20:38 | P.PN ---
Subjective Progress Note Date: 06/08/24 This is a pleasant 69-year-old female patient with a known history of chronic obstructive pulmonary disease, former smoker who follows with Dr. Jade in our office. She was seen earlier this week and initiated on antibiotics and steroids. She was not improving and presented here to the emergency room yesterday with complaints of increasing cough, congestion and shortness of breath. She has had clear productive sputum and chills. Chest x-ray reveals patchy bibasilar airspace opacities. Evidence of COPD. White count 19.0. Hemoglobin 13.3. Platelets 537. Sodium 135. Potassium 4.0. Bicarb 27. BUN 13. Creatinine 0.72. Glucose 123. AST 66. ALT 47. Viral screen is negative. She has been initiated on DuoNeb and elations, Symbicort, Solu-Medrol. Antibiotics in the form of ceftriaxone. Heparin for DVT prophylaxis. In consultation on the regular medical floor. She is currently resting in bed. Awake and alert in no acute distress. She does have a loose productive cough. She is maintaining O2 saturations in the mid 90s on 3 L/min per nasal cannula. Progress note dated June 04, 2024. 69-year-old female with a known history of COPD. The patient follows with one of my partners. The patient was seen earlier this week, and was initiated on antibiotics and corticosteroids, but was not improving, so she came to the ER to be evaluated. She was admitted with a COPD exacerbation. Currently, she is on 4 L of oxygen. No IV fluids. She is resting comfortably in bed. No acute distress. No audible wheezing or use of accessory muscles. Laboratory gold, the only new blood test was a glucose of 267. The patient is seen today June 05, 2024 in follow-up on the regular medical floor. She is currently sitting up in a chair at the bedside. Awake and alert in no acute distress. Feeling a bit better. Maintaining O2 saturations in the 90s on 4 L/min per nasal cannula. No IV fluids. She is continued on Solu- Medrol, Symbicort, DuoNeb inhalations. Her procalcitonin was negative at 0.07. No need for antibiotics. Glucose 197. She is afebrile. Hemodynamically stable. Heparin for DVT prophylaxis. On 06/05/2024, the patient is being seen for a follow-up. 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 Chest x-ray is not showing any acute pulmonary filtrates. The patient has a white cell count of 23 with a hemoglobin 10.2 and a platelet count of 420. Electrolytes are all within normal limits. BUN is 16 with a creatinine of 0.8. Procalcitonin level is at 0.05. Chest x-ray at time of admission shows no acute pulmonary filtrates. It is consistent with COPD. Questionable patchy changes in the lung bases probably related to atelectasis. The patient is on DuoNeb nebulized treatments [id number], Symbicort and IV Solu-Medrol 60 mg every 6 hours. Congested cough. Unable to bring up much sputum. Sputum samples collected earlier was negative for any microbial growth. On 06/07/2024, the patient reports some improvement in her symptoms of COPD exacerbation the patient is able to bring him some sputum. Less bronchospastic and wheezy compared to yesterday. She is currently on DuoNeb of chest, Perforomist and Pulmicort nebulized treatments twice a day and she remains on IV Solu-Medrol 60 mg every 6 hours. Blood sugars are mildly elevated. White cell count of 23.3 with a hemoglobin 10.2. Her procalcitonin level was 0.07. She remains on oxygen and 4 L. On 06/08/2024, patient is being seen for a follow-up. Still being treated for an acute COPD exacerbation. No new complaints. She is on 3 L O2 nasal cannula with a pulse ox of 95%. Continues to have cough especially with deep inspiration. Mucus production is improved and the patient remains on Mucinex. The patient remains on IV Solu-Medrol. The patient remains on DuoNeb nebulized treatments [id number] and the patient is also on a combination of Perforomist and Pulmicort updrafts twice a day. The white cell count from few days back was 23.3. Hemoglobin was at 10.2. Sputum Gram stain and culture is negative. No other new complaints otherwise for now. No signs of any CO2 narcosis. No chest pain. More active. Objective - Vital Signs Vital signs: Vital Signs Temp 97.5 F L 06/08/24 08:53 Pulse 100 06/08/24 11:39 Resp 16 06/08/24 08:53 BP 135/74 06/08/24 08:53 Pulse Ox 95 06/08/24 08:53 FiO2 Intake & Output 06/07/24 06/08/24 06/08/24 18:59 06:59 18:59 Intake Total 750 Balance 750 Weight 67.132 kg Intake: Oral 750 Other: Voiding Method Toilet Toilet # Voids 4 3 - Exam GENERAL EXAM: Alert, sitting up in a chair, on 3 L nasal cannula, comfortable in no apparent distress. HEAD: Normocephalic. EYES: Normal reaction of pupils, equal size. NOSE: Clear with pink turbinates. THROAT: No erythema or exudates. NECK: No masses, no JVD. CHEST: No chest wall deformity. LUNGS: Equal air entry with bilateral scattered rhonchi. CVS: S1 and S2 normal with no audible murmur, regular rhythm. ABDOMEN: No hepatosplenomegaly, normal bowel sounds, no guarding or rigidity. SPINE: No scoliosis or deformity SKIN: No rashes CENTRAL NERVOUS SYSTEM: No focal deficits, tone is normal in all 4 extremities. EXTREMITIES: There is no peripheral edema. No clubbing, no cyanosis. Peripheral pulses are intact. - Labs CBC & Chem 7: 06/06/24 03:32 06/06/24 03:32 Labs: Abnormal Lab Results - Last 24 Hours (Table) 06/07/24 06/07/24 06/07/24 Range/Units 11:57 16:39 20:35 POC Glucose (mg/dL) 164 H 217 H 258 H (70-110) mg/dL 06/08/24 Range/Units 06:08 POC Glucose (mg/dL) 273 H (70-110) mg/dL Microbiology - Last 24 Hours (Table) 06/02/24 12:44 Blood Culture - Final Blood 06/02/24 12:44 Blood Culture - Final Blood Assessment and Plan Plan: Acute hypoxic respiratory failure secondary to exacerbation of COPD, procalcitonin was negative, chest x-ray is is negative for any acute pulmonary filtrates. The patient remains on 3 L O2 nasal cannula Acute COPD exacerbation, improving Shortness of breath secondary to above, improving Former smoker Hypertension Hyperlipidemia Plan: Clinically improving Still on oxygen 3 L/min nasal cannula, wean down FiO2 to maintain saturation above 90% Will keep the same bronchodilator regimen's Continue DuoNeb inhalations Stop the Symbicort and give the patient a combination of Perforomist and Pulmicort Continue Solu-Medrol 60 mg every 6 hours, will consider starting the patient on prednisone burst taper as of tomorrow Titrate the FiO2 as tolerated, currently on 3 L We will continue to follow
[2024-06-09 05:55] LABS: Glucose,Whole Blood 217 mg/dL (70-110)
[2024-06-09] MEDS ORDERED: SALINE NASAL GEL 14.1 GM TUBE NASAL PRN (06:38)
--- NOTE | 2024-06-09 06:41 | P.PN ---
Subjective Progress Note Date: 06/08/24 . 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 She was treated with Z-García for few days with no much improvement She presents because of central chest pain and both sides of the rib cage associated with coughing Also with some dyspnea and she makes little of phlegm which is sent for culture She denies GI/ symptoms No headache dizziness She denies smoking alcohol or illicit drugs Patient does not use oxygen at home She is afebrile and vitals are stable She has leukocytosis of 19,000 rest of labs were unremarkable CBC, BMP Liver enzymes mildly elevated and INR are negative Influenza A and type B, RSV, SARS (coronavirus) are undetected Chest x-ray showing bilateral patchy infiltrate I reviewed chest x-ray by myself and agree with this with more infiltrate and obliteration of the left cos tophrenic angle on the left side EKG showing sinus tachycardia at [address]-T changes 06/03 Patient feels better regarding her breathing Occasional cough no significant chest pain She remains on IV ceftriaxone Pro- Calcitonin and culture are pending She complaining from hemorrhoids and topical treatment is provided 06/04: patient seen and evaluated at bedside, on evaluation patient continued to complain of shortness of breath, does complain of perioral breakout, topical hydrocortisone cream ordered, has cough and productive sputum 06/05- patient seen and evaluated at bedside, patient remains on 4 L of oxygen remains afebrile, blood glucose remains elevated 230s, follow-up blood work pending appreciate input from pulmonary medicine, due to complaint of nasal congestion, trace epistaxis which has resolved 06/07/2024 Patient is seen in follow-up this morning continues to be bronchospastic reporting shortness of breath although is able to break up a little more sputum. Patient is continued on iyelic-jvs-tribh DuoNeb treatments along with IV steroids with pulmonary following. Patient chronically wears 2 L outpatient currently maintained on 3-4 and recommend to wean FiO2 as tolerated. Patient continues to report dryness of the nasal nares and will add saline gel and greg nue with humidification. Patient is afebrile with no reports of chest pain or palpitations. 06/08/2024 Patient is seen in follow-up today continuing to report some shortness of breath although feeling slightly improved and oxygen is weaned down to 3 L. Patient chronically wears 2 L outpatient. Patient is continued on [id number]-[id number] DuoNebs along with IV steroids. Patient is reporting mouth and tongue pain and irritation, will add nystatin swish and swallow. Patient is using Mucinex and a ble to get up more. Pulmonary is following not quite ready for discharge as of yet. Review of systems: Constitutional: No reports of fatigue, fever, or chills Cardiovascular: No reports of chest pain or palpitations Respiratory: reports of continued shortness of breath and multiple episodes of bronchospastic coughing, reporting mouth and tongue pain GI: No reports of nausea, vomiting, or diarrhea : No reports of dysuria or retention Neurovascular: No reports of weakness or numbness All medications have been reviewed Physical exam: GENERAL: The patient is alert and oriented x3, ill appearance, nasal cannula in place HEENT: Pupils are round and equally reacting to light. Tongue appears irritated and red CARDIOVASCULAR: S1 and S2 present. PULMONARY: decreased breath sounds bilaterally, rhonchi audible, expiratory wheezing noted, improved aeration on today's exam ABDOMEN: Soft, nontender, nondistended, normoactive bowel sounds. No palpable organomegaly. MUSCULOSKELETAL: No joint swelling or deformity. EXTREMITIES: No cyanosis, clubbing, or pedal edema. NEUROLOGICAL: Gross neurological examination did not reveal any focal deficits. Assessment: acute hypoxic respiratory failure secondary to community-acquired pneumonia Acute on chronic hypoxic respiratory failure, chronically wears 2 to 3 L outpatient, currently maintained on 4 L acute exacerbation of COPD Oral candidiasis Sepsis, ruled out, procalcitonin was negative hypertension hyperlipidemia GI prophylaxis DVT prophylaxis Full code Plan: * in regards to hypoxic respiratory failure continue patient on pulmonary hygiene, received IV Rocephin however antibiotics discontinued by pulmonary medicine as procalcitonin is negative * pulmonary following, continue breathing treatments on DuoNeb, continue Symbicort discontinued and patient was started on Pulmicort and will continue continue IV Solu-Medrol, encourage use of humidifier with oxygen * in regards to hypertension continue amlodipine * Patient reporting mouth pain and tongue pain and will add nystatin swish and swallow * Labs and medication were reviewed. Encouraged increase activity as tolerated Not back to baseline as she is continuing to be extremely bronchospastic and short of breath. Will await pulmonary clearance to determine discharge planning. Possible discharge planning in the next 24 to 48 hours Overall prognosis guarded The impression and plan of care has been dictated by Sera Carter, Nurse Practitioner as directed. Dr. Antonette MD I have performed a history and examination and MDM of this patient, discussed the same with the dictator, and agree with the dictator's assessment and plan as written ,documented as a scribe. Based on total visit time, I have performed more than 50% of the visit. Objective - Vital Signs Vital signs: Vital Signs Temp 97.6 F 06/08/24 01:37 Pulse 96 06/08/24 08:16 Resp 16 06/08/24 01:37 BP 120/68 06/08/24 01:37 Pulse Ox 97 06/08/24 01:37 FiO2 Intake & Output 06/07/24 06/08/24 06/08/24 18:59 06:59 18:59 Intake Total 750 Balance 750 Weight 67.132 kg Intake: Oral 750 Other: Voiding Method Toilet Toilet # Voids 4 3 - Labs CBC & Chem 7: 06/06/24 03:32 06/06/24 03:32 Labs: Abnormal Lab Results - Last 24 Hours (Table) 06/07/24 06/07/24 06/07/24 Range/Units 11:57 16:39 20:35 POC Glucose (mg/dL) 164 H 217 H 258 H (70-110) mg/dL 06/08/24 Range/Units 06:08 POC Glucose (mg/dL) 273 H (70-110) mg/dL Microbiology - Last 24 Hours (Table) 06/02/24 12:44 Blood Culture - Final Blood 06/02/24 12:44 Blood Culture - Final Blood
[2024-06-09 11:19] LABS: Glucose,Whole Blood 197 mg/dL (70-110)
[2024-06-09] MEDS: HYDROCORTISONE SUPPOSITORY 25 MG SUPP RECTAL PRN (13:15)
[2024-06-09 16:32] LABS: Glucose,Whole Blood 195 mg/dL (70-110)
--- NOTE | 2024-06-09 19:33 | P.PN ---
Subjective Progress Note Date: 06/09/24 This is a pleasant 69-year-old female patient with a known history of chronic obstructive pulmonary disease, former smoker who follows with Dr. Jade in our office. She was seen earlier this week and initiated on antibiotics and steroids. She was not improving and presented here to the emergency room yesterday with complaints of increasing cough, congestion and shortness of breath. She has had clear productive sputum and chills. Chest x-ray reveals patchy bibasilar airspace opacities. Evidence of COPD. White count 19.0. Hemoglobin 13.3. Platelets 537. Sodium 135. Potassium 4.0. Bicarb 27. BUN 13. Creatinine 0.72. Glucose 123. AST 66. ALT 47. Viral screen is negative. She has been initiated on DuoNeb and elations, Symbicort, Solu-Medrol. Antibiotics in the form of ceftriaxone. Heparin for DVT prophylaxis. In consultation on the regular medical floor. She is currently resting in bed. Awake and alert in no acute distress. She does have a loose productive cough. She is maintaining O2 saturations in the mid 90s on 3 L/min per nasal cannula. Progress note dated June 04, 2024. 69-year-old female with a known history of COPD. The patient follows with one of my partners. The patient was seen earlier this week, and was initiated on antibiotics and corticosteroids, but was not improving, so she came to the ER to be evaluated. She was admitted with a COPD exacerbation. Currently, she is on 4 L of oxygen. No IV fluids. She is resting comfortably in bed. No acute distress. No audible wheezing or use of accessory muscles. Laboratory gold, the only new blood test was a glucose of 267. The patient is seen today June 05, 2024 in follow-up on the regular medical floor. She is currently sitting up in a chair at the bedside. Awake and alert in no acute distress. Feeling a bit better. Maintaining O2 saturations in the 90s on 4 L/min per nasal cannula. No IV fluids. She is continued on Solu- Medrol, Symbicort, DuoNeb inhalations. Her procalcitonin was negative at 0.07. No need for antibiotics. Glucose 197. She is afebrile. Hemodynamically stable. Heparin for DVT prophylaxis. On 06/05/2024, the patient is being seen for a follow-up. 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 Chest x-ray is not showing any acute pulmonary filtrates. The patient has a white cell count of 23 with a hemoglobin 10.2 and a platelet count of 420. Electrolytes are all within normal limits. BUN is 16 with a creatinine of 0.8. Procalcitonin level is at 0.05. Chest x-ray at time of admission shows no acute pulmonary filtrates. It is consistent with COPD. Questionable patchy changes in the lung bases probably related to atelectasis. The patient is on DuoNeb nebulized treatments [id number], Symbicort and IV Solu-Medrol 60 mg every 6 hours. Congested cough. Unable to bring up much sputum. Sputum samples collected earlier was negative for any microbial growth. On 06/07/2024, the patient reports some improvement in her symptoms of COPD exacerbation the patient is able to bring him some sputum. Less bronchospastic and wheezy compared to yesterday. She is currently on DuoNeb of chest, Perforomist and Pulmicort nebulized treatments twice a day and she remains on IV Solu-Medrol 60 mg every 6 hours. Blood sugars are mildly elevated. White cell count of 23.3 with a hemoglobin 10.2. Her procalcitonin level was 0.07. She remains on oxygen and 4 L. On 06/08/2024, patient is being seen for a follow-up. Still being treated for an acute COPD exacerbation. No new complaints. She is on 3 L O2 nasal cannula with a pulse ox of 95%. Continues to have cough especially with deep inspiration. Mucus production is improved and the patient remains on Mucinex. The patient remains on IV Solu-Medrol. The patient remains on DuoNeb nebulized treatments [id number] and the patient is also on a combination of Perforomist and Pulmicort updrafts twice a day. The white cell count from few days back was 23.3. Hemoglobin was at 10.2. Sputum Gram stain and culture is negative. No other new complaints otherwise for now. No signs of any CO2 narcosis. No chest pain. More active. On 06/09/2024, patient is being seen for a follow-up. The patient is being treated for an acute COPD exacerbation. She is feeling well. She is on room air oxygen. Pulse ox is in order of 94%. Home O2 evaluation to be done. Cough congestion and wheezing is gradually improving. She remains on IV Solu-Medrol. She remains on Perforomist and Pulmicort nebulizer treatments twice a day and DuoNeb nebulized treatments 4 times a day. Rest of the medications remain unchanged. No new labs are available from today. No chest pain. No altered mentation. No signs of any CO2 narcosis. Objective - Vital Signs Vital signs: Vital Signs Temp 97.9 F 06/09/24 06:43 Pulse 98 06/09/24 08:49 Resp 18 06/09/24 06:43 BP 123/70 06/09/24 06:43 Pulse Ox 97 06/09/24 11:30 FiO2 Intake & Output 06/08/24 06/09/24 06/09/24 18:59 06:59 18:59 Other: Voiding Method Toilet Toilet # Voids 3 1 - Exam GENERAL EXAM: Alert, sitting up in a chair, on room air oxygen HEAD: Normocephalic. EYES: Normal reaction of pupils, equal size. NOSE: Clear with pink turbinates. THROAT: No erythema or exudates. NECK: No masses, no JVD. CHEST: No chest wall deformity. LUNGS: Equal air entry with bilateral scattered rhonchi. CVS: S1 and S2 normal with no audible murmur, regular rhythm. ABDOMEN: No hepatosplenomegaly, normal bowel sounds, no guarding or rigidity. SPINE: No scoliosis or deformity SKIN: No rashes CENTRAL NERVOUS SYSTEM: No focal deficits, tone is normal in all 4 extremities. EXTREMITIES: There is no peripheral edema. No clubbing, no cyanosis. Peripheral pulses are intact. - Labs CBC & Chem 7: 06/06/24 03:32 06/06/24 03:32 Labs: Abnormal Lab Results - Last 24 Hours (Table) 06/08/24 06/08/24 06/09/24 Range/Units 16:52 20:08 05:54 POC Glucose (mg/dL) 277 H 224 H 217 H (70-110) mg/dL 06/09/24 Range/Units 11:17 POC Glucose (mg/dL) 197 H (70-110) mg/dL Assessment and Plan Plan: Acute hypoxic respiratory failure secondary to exacerbation of COPD, procalcitonin was negative, chest x-ray is is negative for any acute pulmonary filtrates. The patient remains on room air oxygen Acute COPD exacerbation, improving Shortness of breath secondary to above, improving Former smoker Hypertension Hyperlipidemia Plan: Clinically improving Currently on room air oxygen. Home O2 evaluation to be done Will keep the same bronchodilator regimen's Continue DuoNeb inhalations Stop the Symbicort and give the patient a combination of Perforomist and Pulmicort Discussed outpatient management regarding her COPD. 1 option is to put the patient on Trelegy Ellipta. Another option would be continuing her Breo Ellipta and adding Spiriva in combination with a prednisone burst taper at time of discharge. We will continue to follow
[2024-06-09 20:08] LABS: Glucose,Whole Blood 247 mg/dL (70-110)
[2024-06-10] MEDS: MAG HYDROX/AL HYDROX/SIMETH 30 ML CUP PO PRN (01:45)
[2024-06-10 06:34] LABS: Glucose,Whole Blood 211 mg/dL (70-110)
[2024-06-10 07:33] VITALS: BP 147/77; RESP 18; TEMP 97.4
[2024-06-10 11:47] LABS: Glucose,Whole Blood 222 mg/dL (70-110)
[2024-06-10 12:03] VITALS: PULSE 88
--- NOTE | 2024-06-10 15:28 | P.PN ---
Subjective Progress Note Date: 06/10/24 This is a pleasant 69-year-old female patient with a known history of chronic obstructive pulmonary disease, former smoker who follows with Dr. Jade in our office. She was seen earlier this week and initiated on antibiotics and steroids. She was not improving and presented here to the emergency room yesterday with complaints of increasing cough, congestion and shortness of breath. She has had clear productive sputum and chills. Chest x-ray reveals patchy bibasilar airspace opacities. Evidence of COPD. White count 19.0. Hemoglobin 13.3. Platelets 537. Sodium 135. Potassium 4.0. Bicarb 27. BUN 13. Creatinine 0.72. Glucose 123. AST 66. ALT 47. Viral screen is negative. She has been initiated on DuoNeb and elations, Symbicort, Solu-Medrol. Antibiotics in the form of ceftriaxone. Heparin for DVT prophylaxis. In consultation on the regular medical floor. She is currently resting in bed. Awake and alert in no acute distress. She does have a loose productive cough. She is maintaining O2 saturations in the mid 90s on 3 L/min per nasal cannula. Progress note dated June 04, 2024. 69-year-old female with a known history of COPD. The patient follows with one of my partners. The patient was seen earlier this week, and was initiated on antibiotics and corticosteroids, but was not improving, so she came to the ER to be evaluated. She was admitted with a COPD exacerbation. Currently, she is on 4 L of oxygen. No IV fluids. She is resting comfortably in bed. No acute distress. No audible wheezing or use of accessory muscles. Laboratory gold, the only new blood test was a glucose of 267. The patient is seen today June 05, 2024 in follow-up on the regular medical floor. She is currently sitting up in a chair at the bedside. Awake and alert in no acute distress. Feeling a bit better. Maintaining O2 saturations in the 90s on 4 L/min per nasal cannula. No IV fluids. She is continued on Solu- Medrol, Symbicort, DuoNeb inhalations. Her procalcitonin was negative at 0.07. No need for antibiotics. Glucose 197. She is afebrile. Hemodynamically stable. Heparin for DVT prophylaxis. On 06/05/2024, the patient is being seen for a follow-up. 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 Chest x-ray is not showing any acute pulmonary filtrates. The patient has a white cell count of 23 with a hemoglobin 10.2 and a platelet count of 420. Electrolytes are all within normal limits. BUN is 16 with a creatinine of 0.8. Procalcitonin level is at 0.05. Chest x-ray at time of admission shows no acute pulmonary filtrates. It is consistent with COPD. Questionable patchy changes in the lung bases probably related to atelectasis. The patient is on DuoNeb nebulized treatments [id number], Symbicort and IV Solu-Medrol 60 mg every 6 hours. Congested cough. Unable to bring up much sputum. Sputum samples collected earlier was negative for any microbial growth. On 06/07/2024, the patient reports some improvement in her symptoms of COPD exacerbation the patient is able to bring him some sputum. Less bronchospastic and wheezy compared to yesterday. She is currently on DuoNeb of chest, Perforomist and Pulmicort nebulized treatments twice a day and she remains on IV Solu-Medrol 60 mg every 6 hours. Blood sugars are mildly elevated. White cell count of 23.3 with a hemoglobin 10.2. Her procalcitonin level was 0.07. She remains on oxygen and 4 L. On 06/08/2024, patient is being seen for a follow-up. Still being treated for an acute COPD exacerbation. No new complaints. She is on 3 L O2 nasal cannula with a pulse ox of 95%. Continues to have cough especially with deep inspiration. Mucus production is improved and the patient remains on Mucinex. The patient remains on IV Solu-Medrol. The patient remains on DuoNeb nebulized treatments [id number] and the patient is also on a combination of Perforomist and Pulmicort updrafts twice a day. The white cell count from few days back was 23.3. Hemoglobin was at 10.2. Sputum Gram stain and culture is negative. No other new complaints otherwise for now. No signs of any CO2 narcosis. No chest pain. More active. On 06/09/2024, patient is being seen for a follow-up. The patient is being treated for an acute COPD exacerbation. She is feeling well. She is on room air oxygen. Pulse ox is in order of 94%. Home O2 evaluation to be done. Cough congestion and wheezing is gradually improving. She remains on IV Solu-Medrol. She remains on Perforomist and Pulmicort nebulizer treatments twice a day and DuoNeb nebulized treatments 4 times a day. Rest of the medications remain unchanged. No new labs are available from today. No chest pain. No altered mentation. No signs of any CO2 narcosis. On 06/10/2024, the patient is being seen for a follow-up. The patient is doing well. No specific complaints. No chest pain. No shortness of breath. The plan is to discharge this patient home on Breo Ellipta as maintenance in combination with Spiriva and a prednisone burst taper. Noted the patient's oxygenation is improved and she would not require home O2. No new labs from today. No chest pain. No altered mentation. No other gastrointestinal symptoms. She is ambulating. Objective - Vital Signs Vital signs: Vital Signs Temp 97.4 F L 06/10/24 07:04 Pulse 88 06/10/24 12:02 Resp 18 06/10/24 07:04 BP 147/77 06/10/24 07:04 Pulse Ox 95 06/10/24 08:59 FiO2 Intake & Output 06/09/24 06/10/24 06/10/24 18:59 06:59 18:59 Other: Voiding Method Toilet Toilet # Voids 1 3 - Exam GENERAL EXAM: Alert, sitting up in a chair, on room air oxygen HEAD: Normocephalic. EYES: Normal reaction of pupils, equal size. NOSE: Clear with pink turbinates. THROAT: No erythema or exudates. NECK: No masses, no JVD. CHEST: No chest wall deformity. LUNGS: Equal air entry with bilateral scattered rhonchi. CVS: S1 and S2 normal with no audible murmur, regular rhythm. ABDOMEN: No hepatosplenomegaly, normal bowel sounds, no guarding or rigidity. SPINE: No scoliosis or deformity SKIN: No rashes CENTRAL NERVOUS SYSTEM: No focal deficits, tone is normal in all 4 extremities. EXTREMITIES: There is no peripheral edema. No clubbing, no cyanosis. Peripheral pulses are intact. - Labs CBC & Chem 7: 06/06/24 03:32 06/06/24 03:32 Labs: Abnormal Lab Results - Last 24 Hours (Table) 06/09/24 06/09/24 06/10/24 Range/Units 16:31 20:06 06:30 POC Glucose (mg/dL) 195 H 247 H 211 H (70-110) mg/dL 06/10/24 Range/Units 11:45 POC Glucose (mg/dL) 222 H (70-110) mg/dL Assessment and Plan Plan: Acute hypoxic respiratory failure secondary to exacerbation of COPD, procalcitonin was negative, chest x-ray is is negative for any acute pulmonary filtrates. The patient remains on room air oxygen Acute COPD exacerbation, improving Shortness of breath secondary to above, improving Former smoker Hypertension Hyperlipidemia Plan: Clinically improving Currently on room air oxygen. Will keep the same bronchodilator regimen's Continue DuoNeb inhalations The patient will be discharged home on Breo Ellipta in combination with Spiriva and albuterol HFA and nebulizer treatments [id number] and a prednisone burst taper. To be followed up with the pulmonary clinic.
--- NOTE | 2024-06-13 10:28 | P.DS ---
Providers Date of admission: 06/02/24 14:09 Expected date of discharge: 06/10/24 Attending physician: Caio Ulloa MD Consults: 06/02/24 14:08 Consult Physician Routine Consulting Provider: Diego Crouch Consult Reason/Comments: COPD, PNA Do you want consulting provider notified?: Yes Primary care physician: Catarina Silvestre Hospital Course: Final diagnosis acute hypoxic respiratory failure secondary to community-acquired pneumonia, improved on room air acute exacerbation of COPD Oral candidiasis Sepsis, ruled out, procalcitonin was negative hypertension hyperlipidemia GI prophylaxis DVT prophylaxis Full code Discharge disposition Patient is being discharged in a stable condition with guarded prognosis to home. Patient will follow-up with Dr. Silvestre in the outpatient setting upon discharge. Patient is to continue with prednisone taper and inhalers along with outpatient follow-up with pulmonary as scheduled. Patient to continue with nystatin swish and swallow for 1 week. Total time taken is greater than 35 minutes. Hospital course This is a 69-year-old female who was recently admitted with acute hypoxic respiratory failure secondary to COPD exacerbation. Initial concerns of possible pneumonia although procalcitonin is negative and sepsis was ruled out. Patient slowly showing improvements maintained on [id number] DuoNebs and steroids showing improvement and has been weaned to room air. Patient apparently does not wear oxygen outpatient and is maintaining oxygen saturations above 94% on discharge. Patient will continue a prednisone taper along with nystatin swish and swallow. Please refer to other consultation notes for further HPI and patient will be following up with pulmonary outpatient. Currently no reports of chest pain, shortness of breath, or palpitations. Patient is afebrile. No reports of nausea or vomiting and patient is tolerating diet. Patient will be discharged home today. Physical exam: Gen: This is a 69-year-old female who is awake, alert and oriented x 3, well- developed, elderly appearing HEENT: Head is atraumatic, normocephalic. Pupils equal, round. Sclerae is anicteric. NECK: Supple. No JVD. No lymphadenopathy. No thyromegaly. LUNGS: Diminished breath sounds bilaterally with a few scattered expiratory wheezes and coarse rhonchi noted. No intercostal retractions. HEART: Regular rate and rhythm. No murmur. ABDOMEN: Soft. Bowel sounds are present. No masses. No tenderness. EXTREMITIES: No pedal edema. No calf tenderness. NEUROLOGICAL: Patient is awake, alert and oriented x3. Cranial nerves 2 through 12 are grossly intact. Please refer to medication reconciliation sheet for a list of medications. The impression and plan of care has been dictated by Sera Carter, Nurse Practitioner as directed. Dr. Antonette MD I have performed a history and examination and MDM of this patient, discussed the same with the dictator, and agree with the dictator's assessment and plan as written ,documented as a scribe. Based on total visit time, I have performed more than 50% of the visit. Patient Condition at Discharge: Stable Plan - Discharge Summary Discharge Rx Participant: No New Discharge Prescriptions: New Loratadine [Claritin] 10 mg PO DAILY #30 tab Ipratropium-Albuterol Nebulize [Duoneb 0.5 mg-3 mg/3 ml Soln] 3 ml INHALATION RT-Q2H PRN #0 each PRN Reason: Shortness Of Breath Or Wheezing Mag Hydrox/Al Hydrox/Simeth [Maalox] 30 ml PO Q4HR PRN ml PRN Reason: Gi Upset guaiFENesin [Mucinex] 600 mg PO Q12HR 10 Days #20 tab Nystatin 100,000 Unit/ml Susp [Mycostatin Oral Susp] 500,000 unit PO QID #360 ml Tiotropium [place] [Spiriva] 1 puff IH DAILY 30 Days #30 each witch Brunilda [Tucks Medicated Pads] 1 each TOPICAL BID PRN pad PRN Reason: Hemorrhoids Acetaminophen Tab [Tylenol] 650 mg PO Q4HR PRN tab PRN Reason: Mild Pain Or Fever > 100.5 Hydrocortisone Suppository [Anusol-Hc] 25 mg RECTAL DAILY PRN #20 suppositor PRN Reason: Hemorrhoids Artificial Tears-Hypromellose [Artificial Tear Drops] 1 drops BOTH EYES QID PRN #5 ml PRN Reason: Dry Eye(S) Saline Nasal Gel [[place] Nasal Gel] 1 applic NASAL Q4HR PRN each PRN Reason: Pain Fluticasone Nasal [place] [Flonase Nasal [place]] 2 spray EA NOSTRIL DAILY #5 ml Simethicone 40 mg/0.6 ml Drops [Mylicon Drops] 80 mg PO PCHS PRN #10 ml PRN Reason: Bloating Famotidine [Pepcid] 20 mg PO BID 15 Days #30 tab predniSONE See Taper PO DIRECTED #30 tab Continue Fluticasone/Vilanterol [Breo Ellipta 200-25 Mcg Inhaler] 1 puff INHALATION RT-DAILY EPINEPHrine (Auto Inject) [Epipen] 0.3 mg IM ONCE PRN PRN Reason: Anaphylaxis valACYclovir HCL [Valtrex] 2,000 mg PO Q12H PRN PRN Reason: FLARE UP Gummy 2 tab PO DAILY Gabapentin [Neurontin] 600 mg PO BID@0900,2100 Gabapentin [Neurontin] 300 mg PO DAILY@1500 Rosuvastatin [Crestor] 10 mg PO MOFR Meloxicam [Mobic] 15 mg PO DAILY amLODIPine [Norvasc] 5 mg PO DAILY Metaxalone [Skelaxin] 800 mg PO TID PRN PRN Reason: Pain Ipratropium-Albuterol Nebulize [Duoneb 0.5 mg-3 mg/3 ml Soln] 3 ml INHALATION RT-QID Discontinued Azithromycin [Zithromax Z Pack] See Taper PO DIRECTED cefuroxime axetiL [Ceftin] 500 mg PO BID Discharge Medication List Fluticasone/Vilanterol [Breo Ellipta 200-25 Mcg Inhaler] 1 puff INHALATION RT- DAILY 11/19/22 [History] EPINEPHrine (Auto Inject) [Epipen] 0.3 mg IM ONCE PRN 06/02/24 [History] Gabapentin [Neurontin] 300 mg PO DAILY@1500 06/02/24 [History] Gabapentin [Neurontin] 600 mg PO BID@0900,2100 06/02/24 [History] Ipratropium-Albuterol Nebulize [Duoneb 0.5 mg-3 mg/3 ml Soln] 3 ml INHALATION RT-QID 06/02/24 [History] Meloxicam [Mobic] 15 mg PO DAILY 06/02/24 [History] Metaxalone [Skelaxin] 800 mg PO TID PRN 06/02/24 [History] Gummy 2 tab PO DAILY 06/02/24 [History] Rosuvastatin [Crestor] 10 mg PO MOFR 06/02/24 [History] amLODIPine [Norvasc] 5 mg PO DAILY 06/02/24 [History] valACYclovir HCL [Valtrex] 2,000 mg PO Q12H PRN 06/02/24 [History] Acetaminophen Tab [Tylenol] 650 mg PO Q4HR PRN tab 06/10/24 [Rx] Artificial Tears-Hypromellose [Artificial Tear Drops] 1 drops BOTH EYES QID PRN #5 ml 06/10/24 [Rx] Famotidine [Pepcid] 20 mg PO BID 15 Days #30 tab 06/10/24 [Rx] Fluticasone Nasal [place] [Flonase Nasal [place]] 2 spray EA NOSTRIL DAILY #5 ml 06/10/24 [Rx] Hydrocortisone Suppository [Anusol-Hc] 25 mg RECTAL DAILY PRN #20 suppositor 06/10/24 [Rx] Ipratropium-Albuterol Nebulize [Duoneb 0.5 mg-3 mg/3 ml Soln] 3 ml INHALATION RT-Q2H PRN #0 each 06/10/24 [Rx] Loratadine [Claritin] 10 mg PO DAILY #30 tab 06/10/24 [Rx] Mag Hydrox/Al Hydrox/Simeth [Maalox] 30 ml PO Q4HR PRN ml 06/10/24 [Rx] Nystatin 100,000 Unit/ml Susp [Mycostatin Oral Susp] 500,000 unit PO QID #360 ml 06/10/24 [Rx] Saline Nasal Gel [[place] Nasal Gel] 1 applic NASAL Q4HR PRN each 06/10/24 [Rx] Simethicone 40 mg/0.6 ml Drops [Mylicon Drops] 80 mg PO PCHS PRN #10 ml 06/10/24 [Rx] Tiotropium [place] [Spiriva] 1 puff IH DAILY 30 Days #30 each 06/10/24 [Rx] guaiFENesin [Mucinex] 600 mg PO Q12HR 10 Days #20 tab 06/10/24 [Rx] predniSONE See Taper PO DIRECTED #30 tab 06/10/24 [Rx] witch Brunilda [Tucks Medicated Pads] 1 each TOPICAL BID PRN pad 06/10/24 [Rx] Follow up Appointment(s)/Referral(s): Julian Shrestha MD [STAFF PHYSICIAN] - 1 Week (Keep your scheduled appointment for June 23) Catarina Silvestre DO [Primary Care Provider] - 1-2 days (Office is not answering at time of discharge. Please call for follow-up appointment.) [facility] Visiting Nurse, [NON-STAFF] - 1 Week Patient Instructions/Handouts: COPD (Chronic Obstructive Pulmonary Disease) (DC) Activity/Diet/Wound Care/Special Instructions: Activity limited until follow-up Follow-up with primary care provider on discharge Continue taking medications as prescribed Avoid sick contacts and wear a mask Continue with inhalers as scheduled along with DuoNeb treatments 1 during the day and 1 at night and keep your rescue inhaler with you at all times Follow-up pulmonary at your scheduled appointment Discharge Disposition: HOME WITH HOME HEALTH SERVICES
--- NOTE | 2024-06-13 17:09 | CDI ---
Documentation Clarification Form Date: 06/13/2024 04:56:29 PM From: [address] Phone: Admit Date: 06/02/2024 02:09:00 PM Patient Name: Endy Springer Visit Number: [id number] Discharge Date: 06/10/2024 01:57:00 PM ATTENTION: The Clinical Documentation Specialists (CDI) and [facility] Coding Staff appreciate your assistance in clarifying documentation. Please respond to the clarification below the line at the bottom and electronically sign. The CDI & [facility] Coding staff will review the response and follow-up if needed. Please note: Queries are made part of the Legal Health Record. If you have any questions, please contact the author of this message via ITS. Doctor/Provider: Caio E Sheet Your patient is receiving the following: Insulin Aspart (Novolog). Please clarify what condition/diagnosis is being treated. History/Risk Factors: 69yo F, ACHRF, CAP, AECOPD on O2, oral candidiasis, HTN, HLD Clinical indicators: A1C: 6.2 Glucose: 06/02 123 06/03 229-248 06/04 229-334 06/05 163- 312 Treatment: Insulin Aspart (Novolog) What diagnosis are you treating with Insulin Aspart (Novolog)? [ x ] Hyperglycemia due to (please provide cause) __steroids [ ] Prediabetes [ ] Diabetes Type 2 with hyperglycemia [ ] No additional diagnosis [ ] Other, please specify [ ] Unable to determine (Template Last Reviewed: July 2020) RACHEALD
== END 2024-06-10 13:57 | disposition home health service (06) | DRG 193 ==
LOC: EC 12:04 → 4SSUR 14:09
PROVIDERS: ADMIT Internal Medicine; ATTEND Internal Medicine
DX: J18.9 Pneumonia, unspecified organism (principal); J96.21 Acute and chronic respiratory failure with hypoxia; B37.0 Candidal stomatitis; J44.0 Chronic obstructive pulmonary disease with (acute) lower respiratory infection; J44.1 Chronic obstructive pulmonary disease with (acute) exacerbation; Z99.81 Dependence on supplemental oxygen; I10 Essential (primary) hypertension; E78.5 Hyperlipidemia, unspecified; R73.9 Hyperglycemia, unspecified; T38.0X5A Adverse effect of glucocorticoids and synthetic analogues, initial encounter; K64.9 Unspecified hemorrhoids; Z87.891 Personal history of nicotine dependence; Z79.899 Other long term (current) drug therapy; Z79.51 Long term (current) use of inhaled steroids; Z79.1 Long term (current) use of non-steroidal anti-inflammatories (NSAID)
CPT/HCPCS: 36415; 71046; 80048; 80053; 80076; 83036; 83605; 83735; 84145; 85025; 85027; 85610; 85730; 86140; 87040; 87070; 87205; 87636; 93005; 94640; 94760; 96361; 96365; 96367; 96375; 96376; 99291

== ENCOUNTER 2024-12-29 10:51 | Inpatient (IN) | payer MEDICARE ==
[2024-12-29] MEDS: SODIUM CHLORIDE 0.9% 1,000 ML IV ONE (11:45)
[2024-12-29] MEDS: methylPREDNISolone SOD SUCCI 125 MG/2 ML VIAL IV STA (11:45)
[2024-12-29] MEDS: ONDANSETRON 4 MG/2 ML VIAL IVP STA (11:46)
[2024-12-29 11:49] LABS: Basophils # (A) 0.02 10*3/uL (0.00-0.10); Basophils % (A) 0.3 %; Eosinophils # (A) 0.00 10*3/uL (0.04-0.35); Eosinophils % (A) 0.0 %; HCT 41.3 % (37.2-46.3); HGB 13.9 g/dL (12.0-15.0); Lymphocytes # (A) 2.19 10*3/uL (0.90-5.00); Lymphocytes % (A) 38.2 %; MCH 30.3 pg (27.0-32.0); MCHC 33.7 g/dL (32.0-37.0); MCV 90.2 fL (80.0-97.0); Monocytes # (A) 0.71 10*3/uL (0.20-1.00); Monocytes % (A) 12.4 %; Neutrophils # (A) 2.79 10*3/uL (1.80-7.70); Neutrophils % (A) 48.8 %; Platelet Count 188 10*3/uL (140-440); RBC 4.58 10*6/uL (4.10-5.20); RDW 14.5 % (11.5-14.5); WBC 5.73 10*3/uL (4.50-10.00)
[2024-12-29] MEDS: DILTIAZEM 125 MG in DEXTROSE 5% IN WATER 100 ML IV SCH (12:00)
[2024-12-29 12:04] LABS: INR 0.9 (<1.2); Partial Thromboplastin Time 25.8 sec (22.0-30.0); Prothrombin Time 10.1 sec (10.0-12.5)
[2024-12-29] MEDS: IPRATROPIUM-ALBUTEROL 3 ML NEB INHALATION STA (12:05)
--- NOTE | 2024-12-29 12:06 | XR ---
EXAMINATION TYPE: XR chest 2V DATE OF EXAM: 12/29/2024 11:56 AM COMPARISON: Chest radiographs from 07/29/2024. CLINICAL INDICATION: Female, 69 years old with history of difficulty breathing; TECHNIQUE: XR chest 2V Frontal and lateral views of the chest. FINDINGS: Lungs/Pleura: There is flattening of the diaphragm with increased lucency of the lungs. No evidence o f pneumothorax, pleural effusion or focal consolidation. Pulmonary vascularity: Unremarkable. Heart/mediastinum: Cardiomediastinal silhouette is unremarkable. Musculoskeletal: No acute osseous pathology. IMPRESSION: 1. No acute cardiopulmonary disease process. 2. COPD changes. [facility], , 12/29/2024 12:04 PM
[2024-12-29 12:26] LABS: ALT 23 U/L (4-34); AST 41 U/L (14-36); African American GFR (CKD) >90 (>60 ml/min/1.73 sqM); Albumin 4.5 g/dL (3.5-5.0); Alkaline Phosphatase 95 U/L (38-126); Anion Gap 13 mmol/L; Blood Urea Nitrogen 12 mg/dL (7-17); Calcium 9.1 mg/dL (8.4-10.2); Carbon Dioxide 24 mmol/L (22-30); Chloride 99 mmol/L (98-107); Glucose 124 mg/dL (74-99); Non-African American GFR(CKD) 79 (>60 ml/min/1.73 sqM); Potassium 4.2 mmol/L (3.5-5.1); Sodium 136 mmol/L (137-145); Total Protein 7.6 g/dL (6.3-8.2)
[2024-12-29] MEDS: HEPARIN SODIUM 1,000 UN/ML (10ML VL) IV ONE (12:51)
[2024-12-29] MEDS: HEPARIN SOD,PORK IN 0.45% NACL 25,000 UNIT in 0.45% NACL 1 250ML.BAG IV SCH (12:56)
[2024-12-29 12:59] LABS: NT-Pro-B-Type Natriuretic Pept 77 pg/mL
[2024-12-29] MEDS ORDERED: IPRATROPIUM-ALBUTEROL 3 ML NEB INHALATION PRN (13:29)
[2024-12-29] MEDS ORDERED: ACETAMINOPHEN TAB 325 MG TAB PO PRN (13:29)
[2024-12-29] MEDS ORDERED: NALOXONE 0.4 MG/ML 1 ML VIAL IVP PRN (13:29)
--- NOTE | 2024-12-29 13:29 | ED ---
General Adult HPI - General Chief complaint: Nausea/Vomiting/Diarrhea Stated complaint: SOB,Vomiting Time Seen by Provider: 12/29/24 11:00 Source: patient, RN notes reviewed Mode of arrival: ambulatory Limitations: no limitations - History of Present Illness Initial comments: 69-year-old female presents emergency department complaint of cough congestion shortness of breath nausea vomiting. Symptoms have been present for last few days daily worsened. Patient states she has a productive cough history of COPD not oxygen dependent. Patient states that she is also vomiting feels dehydrated. Patient denies any localized abdominal pain states she has no chest pain currently she states she does have some wheezing noted denies any sick contacts. Does admit to recent traveling no leg pain or leg swelling - Related Data Home Medications Medication Instructions Recorded Confirmed Fluticasone/Vilanterol [Breo 1 puff INHALATION RT-DAILY 11/19/22 07/29/24 Ellipta 200-25 Mcg Inhaler] EPINEPHrine (Auto Inject) [Epipen] 0.3 mg IM ONCE PRN 06/02/24 07/29/24 Gabapentin [Neurontin] 300 mg PO DAILY@1500 06/02/24 07/29/24 Gabapentin [Neurontin] 600 mg PO BID@0900,2100 06/02/24 07/29/24 Ipratropium-Albuterol Nebulize 3 ml INHALATION RT-QID PRN 06/02/24 07/29/24 [Duoneb 0.5 mg-3 mg/3 ml Soln] Meloxicam [Mobic] 15 mg PO DAILY 06/02/24 07/29/24 Metaxalone [Skelaxin] 800 mg PO TID PRN 06/02/24 07/29/24 Gummy 2 tab PO DAILY 06/02/24 07/29/24 Rosuvastatin [Crestor] 10 mg PO DAILY 06/02/24 07/29/24 amLODIPine [Norvasc] 5 mg PO DAILY 06/02/24 07/29/24 Furosemide [Lasix] 20 mg PO DAILY 07/29/24 07/29/24 Mirtazapine [Remeron] 30 mg PO HS 07/29/24 07/29/24 Propylene Glycol [Systane Complete] 1 drop BOTH EYES QID PRN 07/29/24 07/29/24 QUEtiapine [SEROquel] 100 mg PO HS 07/29/24 07/29/24 metFORMIN HCL [Glucophage] 500 mg PO BID 07/29/24 07/29/24 tiZANidine [Zanaflex] 4 mg PO DAILY PRN 07/29/24 07/29/24 Previous Rx's Medication Instructions Recorded Acetaminophen Tab [Tylenol] 650 mg PO Q4HR PRN tab 06/10/24 Pantoprazole Sodium [Protonix] 40 mg PO DAILY #15 tab 07/30/24 Allergies Allergy/AdvReac Type Severity Reaction Status Date / Time bee venom protein (honey bee) Allergy Anaphylaxis Verified 12/29/24 10:58 sulfamethoxazole Allergy Anaphylaxis Verified 12/29/24 10:58 [From Bactrim] trimethoprim [From Bactrim] Allergy Anaphylaxis Verified 12/29/24 10:58 Quinolones AdvReac was told Verified 12/29/24 10:58 to stay away from per neurologist Review of Systems ROS Statement: Those systems with pertinent positive or pertinent negative responses have been documented in the HPI. ROS Other: All systems not noted in ROS Statement are negative. Past Medical History Past Medical History: COPD, GERD/Reflux, Pneumonia Additional Past Medical History / Comment(s): pneumonia several months ago, still has cough & bringing up yellow phlegm, hx. 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 History of Any Multi-Drug Resistant Organisms: None Reported Past Surgical History: Appendectomy, Bowel Resection, Cholecystectomy, Hernia Repair, Hysterectomy, Orthopedic Surgery, Tonsillectomy Additional Past Surgical History / Comment(s): hernia repair x5, pamela cataracts removed, cyst removed under chin x3, fatty tumor removed right shoulder blade, trigger finger surgeries pamela hands, partial brace inserted right wrist, right rib resection, bunionectomy left foot Past Anesthesia/Blood Transfusion Reactions: No Reported Reaction Past Psychological History: No Psychological Hx Reported Smoking Status: Former smoker Past Alcohol Use History: None Reported Past Drug Use History: None Reported General Exam Limitations: no limitations General appearance: alert, in no apparent distress Head exam: Present: atraumatic, normocephalic, normal inspection Eye exam: Present: normal appearance, PERRL, EOMI. Absent: scleral icterus, conjunctival injection, periorbital swelling ENT exam: Present: normal exam, mucous membranes moist Neck exam: Present: normal inspection, full ROM. Absent: tenderness, meningismus, lymphadenopathy Respiratory exam: Present: wheezes, decreased breath sounds. Absent: normal lung sounds bilaterally, respiratory distress, rales, rhonchi, stridor Cardiovascular Exam: Present: tachycardia, irregular rhythm, normal heart sounds. Absent: regular rate, normal rhythm, systolic murmur, diastolic murmur, rubs, gallop, clicks GI/Abdominal exam: Present: soft, normal bowel sounds. Absent: distended, tenderness, guarding, rebound, rigid Extremities exam: Absent: pedal edema, calf tenderness Course Vital Signs 12/29/24 12/29/24 12/29/24 10:54 11:15 11:44 Temperature 97.8 F 99.4 F Pulse Rate 98 140 H Respiratory 20 24 22 Rate Blood Pressure 106/67 112/71 O2 Sat by Pulse 91 L 91 L Oximetry 12/29/24 12/29/24 12/29/24 12:03 12:06 12:18 Temperature Pulse Rate 109 H 120 H 124 H Respiratory 22 Rate Blood Pressure 115/80 O2 Sat by Pulse 91 L Oximetry 12/29/24 12/29/24 12/29/24 12:23 12:59 13:03 Temperature 98.7 F Pulse Rate 138 H 117 H 131 H Respiratory 20 Rate Blood Pressure 102/64 O2 Sat by Pulse 87 L Oximetry EKG Findings - EKG Comments: EKG Findings:: EKG performed at 11: 27 A-fib with RVR rate of 137 QRS 93 QT/QTc 316/396 - EKG Results: EKG: interpreted by MIHAI Medical Decision Making - Medical Decision Making Was pt. sent in by a medical professional or institution (, PA, UNDERWATER PHOTOGRAPHER, urgent care, hospital, or shelter...) When possible be specific @ -No Did you speak to anyone other than the patient for history (EMS, parent, family, police, friend...)? What history was obtained from this source @ -No Did you review nursing and triage notes (agree or disagree)? Why? @ -I reviewed and agree with nursing and triage notes Were old charts reviewed (outside hosp., previous admission, EMS record, old EKG, old radiological studies, urgent care reports/EKG's, shelter records)? Report findings @ -No old charts were reviewed Differential Diagnosis (chest pain, altered mental status, abdominal pain women, abdominal pain men, vaginal bleeding, weakness, fever, dyspnea, syncope, headache, dizziness, GI bleed, back pain, seizure, CVA, palpatations, mental health, musculoskeletal)? @ -Differential Dyspnea: Coronary syndrome, arrhythmia, tamponade, asthma, COPD, pulmonary embolism, pneumonia, pneumothorax, pulmonary effusion, anaphylaxis, diabetic ketoacidosis, flailed chest, pulmonary contusion, diaphragmatic rupture, anemia, neuromuscular, this is not meant to be an all-inclusive list. EKG interpreted by me (3pts min.). @ -As above X-rays interpreted by me (1pt min.). @ -Chest x-ray shows COPD changes, no acute process CT interpreted by me (1pt min.). @ -None done U/S interpreted by me (1pt. min.). @ -None done What testing was considered but not performed or refused? (CT, X-rays, U/S, labs)? Why? @ -None What meds were considered but not given or refused? Why? @ -None Did you discuss the management of the patient with other professionals (professionals i.e. , PA, UNDERWATER PHOTOGRAPHER, lab, RT, psych nurse, social service manager, chronic condition nurse, teacher, corporation officer, pillowcase cleaner)? Give summary @ -EMH for admission Was smoking cessation discussed for >3mins.? @ -No Was critical care preformed (if so, how long)? @ -[35 minutes Were there social determinants of health that impacted care today? How? (Homelessness, low income, unemployed, alcoholism, drug addiction, transportation, low edu. Level, literacy, decrease access to med. care, senior living, rehab)? @ -No Was there de-escalation of care discussed even if they declined (Discuss DNR or withdrawal of care, Hospice)? DNR status @ -No What co-morbidities impacted this encounter? (DM, HTN, Smoking, COPD, CAD, Cancer, CVA, ARF, Chemo, Hep., AIDS, mental health diagnosis, sleep apnea, morbid obesity)? @ -[COPD Was patient admitted / discharged? Hospital course, mention meds given and route, prescriptions, significant lab abnormalities, going to OR and other pertinent info. @ -Admitted patient was found to have new onset A-fib, A-fib RVR was started on Cardizem, heparin. Patient does have increasing wheezing, shortness of breath associated with her A-fib and COPD exacerbation. Patient given Solu-Medrol breathing treatments will be admitted for further treatment and monitoring. Undiagnosed new problem with uncertain prognosis? @ -[No Drug Therapy requiring intensive monitoring for toxicity (Heparin, Nitro, Insulin, Cardizem)? @ -Cardizem, heparin Were any procedures done? @ -No Diagnosis/symptom? @ -New onset A-fib, A-fib RVR, COPD exacerbation Acute, or Chronic, or Acute on Chronic? @ -[Acute Uncomplicated (without systemic symptoms) or Complicated (systemic symptoms)? @ -Complicated Side effects of treatment? @ -No Exacerbation, Progression, or Severe Exacerbation? @ -No Poses a threat to life or bodily function? How? (Chest pain, [place], [place], pneumonia, PE, COPD, DKA, ARF, appy, cholecystitis, CVA, Diverticulitis, Homicidal, Suicidal, threat to staff... and all critical care pts) @ -Risk to cardiac and pulmonary function - Lab Data Result diagrams: 12/29/24 11:37 12/29/24 11:37 Lab Results 12/29/24 12/29/24 12/29/24 Range/Units 11:37 11:37 11:37 WBC 5.73 (4.50-10.00) 10*3/uL RBC 4.58 (4.10-5.20) 10*6/uL Hgb 13.9 (12.0-15.0) g/dL Hct 41.3 (37.2-46.3) % MCV 90.2 (80.0-97.0) fL MCH 30.3 (27.0-32.0) pg MCHC 33.7 (32.0-37.0) g/dL Plt Count 188 (140-440) 10*3/uL MPV 9.2 L (9.5-12.2) fL Immature Gran % (Auto) 0.3 % Neutrophils % 48.8 % Lymphocytes % 38.2 % Monocytes % 12.4 % Eosinophils % 0.0 % Basophils % 0.3 % Immature Gran # 0.02 (0.00-0.04) 10*3/uL Neutrophils # 2.79 (1.80-7.70) 10*3/uL Lymphocytes # 2.19 (0.90-5.00) 10*3/uL Monocytes # 0.71 (0.20-1.00) 10*3/uL Eosinophils # 0.00 L (0.04-0.35) 10*3/uL Basophils # 0.02 (0.00-0.10) 10*3/uL Manual Slide Review Perf PT 10.1 (10.0-12.5) sec INR 0.9 (<1.2) APTT 25.8 (22.0-30.0) sec Sodium 136 L (137-145) mmol/L Potassium 4.2 (3.5-5.1) mmol/L Chloride 99 (98-107) mmol/L Carbon Dioxide 24 (22-30) mmol/L Anion Gap 13 mmol/L BUN 12 (7-17) mg/dL Creatinine 0.78 (0.52-1.04) mg/dL Est GFR (CKD-EPI)AfAm >90 (>60 ml/min/1.73 sqM) Est GFR (CKD-EPI)NonAf 79 (>60 ml/min/1.73 sqM) Glucose 124 H (74-99) mg/dL Calcium 9.1 (8.4-10.2) mg/dL Total Bilirubin 0.5 (0.2-1.3) mg/dL AST 41 H (14-36) U/L ALT 23 (4-34) U/L Alkaline Phosphatase 95 (38-126) U/L Troponin I (0.000-0.034) ng/mL NT-Pro-B Natriuret Pep 77 pg/mL Total Protein 7.6 (6.3-8.2) g/dL Albumin 4.5 (3.5-5.0) g/dL 12/29/24 Range/Units 11:37 WBC (4.50-10.00) 10*3/uL RBC (4.10-5.20) 10*6/uL Hgb (12.0-15.0) g/dL Hct (37.2-46.3) % MCV (80.0-97.0) fL MCH (27.0-32.0) pg MCHC (32.0-37.0) g/dL Plt Count (140-440) 10*3/uL MPV (9.5-12.2) fL Immature Gran % (Auto) % Neutrophils % % Lymphocytes % % Monocytes % % Eosinophils % % Basophils % % Immature Gran # (0.00-0.04) 10*3/uL Neutrophils # (1.80-7.70) 10*3/uL Lymphocytes # (0.90-5.00) 10*3/uL Monocytes # (0.20-1.00) 10*3/uL Eosinophils # (0.04-0.35) 10*3/uL Basophils # (0.00-0.10) 10*3/uL Manual Slide Review PT (10.0-12.5) sec INR (<1.2) APTT (22.0-30.0) sec Sodium (137-145) mmol/L Potassium (3.5-5.1) mmol/L Chloride (98-107) mmol/L Carbon Dioxide (22-30) mmol/L Anion Gap mmol/L BUN (7-17) mg/dL Creatinine (0.52-1.04) mg/dL Est GFR (CKD-EPI)AfAm (>60 ml/min/1.73 sqM) Est GFR (CKD-EPI)NonAf (>60 ml/min/1.73 sqM) Glucose (74-99) mg/dL Calcium (8.4-10.2) mg/dL Total Bilirubin (0.2-1.3) mg/dL AST (14-36) U/L ALT (4-34) U/L Alkaline Phosphatase (38-126) U/L Troponin I <0.012 (0.000-0.034) ng/mL NT-Pro-B Natriuret Pep pg/mL Total Protein (6.3-8.2) g/dL Albumin (3.5-5.0) g/dL Critical Care Time Critical Care Time: Yes Total Critical Care Time: 35 Disposition Clinical Impression: Atrial fibrillation, new onset, Atrial fibrillation with RVR, COPD exacerbation Disposition: ADMITTED IP TO THIS HOSP Condition: Fair Referrals: Catarina Silvestre DO [Primary Care Provider] - 1-2 days Time of Disposition: 13:27
[2024-12-29] MEDS: IPRATROPIUM-ALBUTEROL 3 ML NEB INHALATION SCH (16:20)
[2024-12-29] MEDS: HEPARIN SODIUM 1,000 UN/ML (10ML VL) IV PRN (20:03)
[2024-12-29] MEDS ORDERED: ALBUTEROL NEBULIZED 2.5 MG/3 ML INHALATION PRN (21:51)
[2024-12-29] MEDS ORDERED: HYDROcodone/APAP 5-325MG 1 EACH TAB PO PRN (21:51)
[2024-12-29] MEDS: QUEtiapine 100 MG TAB PO SCH (22:10)
[2024-12-29] MEDS: GABAPENTIN 300 MG CAP PO SCH (22:10)
[2024-12-29] MEDS: cycloSPORINE 0.05% OPHTH 0.4 ML DROPERETTE BOTH EYES SCH (22:12)
[2024-12-30 03:29] LABS: Basophils # (A) 0.01 10*3/uL (0.00-0.10); Basophils % (A) 0.3 %; Eosinophils # (A) 0.00 10*3/uL (0.04-0.35); Eosinophils % (A) 0.0 %; HCT 41.3 % (37.2-46.3); HGB 13.6 g/dL (12.0-15.0); Lymphocytes # (A) 2.28 10*3/uL (0.90-5.00); Lymphocytes % (A) 63.0 %; MCH 30.6 pg (27.0-32.0); MCHC 32.9 g/dL (32.0-37.0); MCV 92.8 fL (80.0-97.0); Monocytes # (A) 0.30 10*3/uL (0.20-1.00); Monocytes % (A) 8.3 %; Neutrophils # (A) 1.02 10*3/uL (1.80-7.70); Neutrophils % (A) 28.1 %; Platelet Count 220 10*3/uL (140-440); RBC 4.45 10*6/uL (4.10-5.20); RDW 14.5 % (11.5-14.5); WBC 3.62 10*3/uL (4.50-10.00)
[2024-12-30 03:52] LABS: INR 0.9 (<1.2); Prothrombin Time 10.3 sec (10.0-12.5)
[2024-12-30 04:03] LABS: RBC Morphology Normal
--- NOTE | 2024-12-30 05:43 | P.HPIM ---
History of Present Illness H&P Date: 12/29/24 This is a pleasant 69-year-old female who presented to the emergency department with increasing shortness of breath and cough and found to be in atrial fibrillation with RVR, new onset. Patient reports she follows with Dr. Silvestre, history of COPD with previous history of pneumonia and denies illicit drug use or alcohol use. Patient reports she does have inhalers and breathing treatments at the home although does not use any oxygen and is currently requiring 2 to 3 L via nasal cannula. Patient recently went on vacation but denies any sick contacts. Chest x-ray obtained shows COPD changes with no acute cardiopulmonary disease process noted. Revealing atrial fibrillation with RVR which is new onset and patient was placed on heparin and Cardizem and being admitted with cardiology consultation. As patient has recently traveled order Cepheid testing which is pending. Patient denies any recent sick contacts. Labs on admission also reviewed reveal a white count of 5.73, hemoglobin stable at 13.9, sodium 136 with a potassium of 4.2, BUN is 12 and creatinine 0.78, lactic acid 1.6, ALT 23, AST 41, initial troponin is negative and BNP is 77. REVIEW OF SYSTEMS: CONSTITUTIONAL: No fever, no malaise, no fatigue. HEENT: No recent visual problems or hearing problems. Denied any sore throat. CARDIOVASCULAR: No chest pain, orthopnea, PND, no palpitations, no syncope. PULMONARY: Reports of shortness of breath, continued bronchospastic cough, no hemoptysis. GASTROINTESTINAL: No diarrhea, no nausea, no vomiting, no abdominal pain. NEUROLOGICAL: No headaches, no weakness, no numbness. HEMATOLOGICAL: Denies any bleeding or petechiae. GENITOURINARY: Denies any burning micturition, frequency, or urgency. MUSCULOSKELETAL/RHEUMATOLOGICAL: Denies any joint pain, swelling, or any muscle pain. ENDOCRINE: Denies any polyuria or polydipsia. The rest of the 14-point review of systems is negative. PHYSICAL EXAMINATION: GENERAL: The patient is alert and oriented x3, not in any acute distress. Well developed, well nourished. Ill-appearing, elderly appearing HEENT: Pupils are round and equally reacting to light. EOMI. No scleral icterus. No conjunctival pallor. Normocephalic, atraumatic. No pharyngeal erythema. No thyromegaly. CARDIOVASCULAR: S1 and S2 muffled, irregular on the monitor, A-fib with RVR PULMONARY: Diminished breath sounds bilaterally with minimal faint expiratory wheezing and coarse rhonchi noted ABDOMEN: Soft, nontender, nondistended, normoactive bowel sounds. No palpable organomegaly. MUSCULOSKELETAL: No joint swelling or deformity. EXTREMITIES: No cyanosis, clubbing, or pedal edema. NEUROLOGICAL: Gross neurological examination did not reveal any focal deficits. Diffusely weak SKIN: No rashes. Assessment: Shortness of breath, multifactorial secondary to COPD exacerbation as well as atrial fibrillation with RVR new onset Acute hypoxic respiratory failure secondary to above History of COPD Former smoker History of GERD GI prophylaxis DVT prophylaxis Full code Plan: Patient was admitted with shortness of breath with COPD exacerbation also atrial fibrillation with RVR new onset and started on Cardizem and heparin. Cardiology consulted and pending at this time Pulmonary consulted as well for COPD and recommend breathing treatments. Patient was given a dose of IV steroids in the ER and will continue with inhaled steroids 2D echo ordered in the ER and pending at this time We will await cardiology evaluation and continue with supportive care Wean FiO2 as tolerated as patient does not wear oxygen in the outpatient setting. Recommend Cepheid testing which is ordered and pending at this time. Patient did recently travel [place]. The impression and plan of care has been dictated by Nurse Hira Carrillo titioner as directed. Dr. Tyler MD I have performed a history and examination and MDM of this patient, discussed the same with the dictator, and agree with the dictator's assessment and plan as written ,documented as a scribe. Based on total visit time, I have performed more than 50% of the visit. Past Medical History Past Medical History: COPD, GERD/Reflux, Pneumonia Additional Past Medical History / Comment(s): pneumonia several months ago, still has cough & bringing up yellow phlegm, hx. 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 History of Any Multi-Drug Resistant Organisms: None Reported Past Surgical History: Appendectomy, Bowel Resection, Cholecystectomy, Hernia Repair, Hysterectomy, Orthopedic Surgery, Tonsillectomy Additional Past Surgical History / Comment(s): hernia repair x5, pamela cataracts removed, cyst removed under chin x3, fatty tumor removed right shoulder blade, trigger finger surgeries pamela hands, partial brace inserted right wrist, right rib resection, bunionectomy left foot Past Anesthesia/Blood Transfusion Reactions: No Reported Reaction Past Psychological History: No Psychological Hx Reported Smoking Status: Former smoker Past Alcohol Use History: None Reported Additional Past Alcohol Use History / Comment(s): quit smoking >10 yrs. ago, 1ppd, smoked since age of 16 Past Drug Use History: None Reported - Past Family History Father Family Medical History: CVA/TIA Mother Additional Family Medical History / Comment(s): mental health issues Medications and Allergies Home Medications Medication Instructions Recorded Confirmed Type EPINEPHrine (Auto Inject) [Epipen] 0.3 mg IM ONCE PRN 06/02/24 12/29/24 History Gabapentin [Neurontin] 300 mg PO DAILY@1500 06/02/24 12/29/24 History Gabapentin [Neurontin] 600 mg PO BID@0900,2100 06/02/24 12/29/24 History Ipratropium-Albuterol Nebulize 3 ml INHALATION RT-QID 06/02/24 12/29/24 History [Duoneb 0.5 mg-3 mg/3 ml Soln] Meloxicam [Mobic] 15 mg PO DAILY 06/02/24 12/29/24 History Metaxalone [Skelaxin] 800 mg PO Q8H PRN 06/02/24 12/29/24 History Rosuvastatin [Crestor] 10 mg PO DAILY 06/02/24 12/29/24 History amLODIPine [Norvasc] 5 mg PO DAILY 06/02/24 12/29/24 History QUEtiapine [SEROquel] 100 mg PO HS 07/29/24 12/29/24 History Albuterol Sulfate [Ventolin HFA] 2 puff INHALATION RT-Q4H PRN 12/29/24 12/29/24 History Cyclobenzaprine [Flexeril] 5 - 10 mg PO TID PRN 12/29/24 12/29/24 History Fluticasone Nasal [place] [Flonase 1 spr EA NOSTRIL DAILY 12/29/24 12/29/24 History Nasal [place]] Fluticasone/Umeclidin/Vilanter 1 puff INHALATION RT-DAILY 12/29/24 12/29/24 History [Trelegy Ellipta 200-62.5-25] HYDROcodone/APAP 5-325MG [[place] 1 tab PO Q8H PRN 12/29/24 12/29/24 History 5-325] Tolterodine [Detrol] 2 mg PO HS 12/29/24 12/29/24 History cycloSPORINE 0.05% OPHTH SOLN 1 drop BOTH EYES Q12H 12/29/24 12/29/24 History [Restasis] valACYclovir HCL [Valtrex] 1,000 mg PO Q2D 12/29/24 12/29/24 History Allergies Allergy/AdvReac Type Severity Reaction Status Date / Time bee venom protein (honey bee) Allergy Anaphylaxis Verified 12/29/24 16:47 sulfamethoxazole Allergy Anaphylaxis Verified 12/29/24 16:47 [From Bactrim] trimethoprim [From Bactrim] Allergy Anaphylaxis Verified 12/29/24 16:47 Quinolones AdvReac was told Verified 12/29/24 16:47 to stay away from per neurologist Physical Exam Vitals: Vital Signs Temp Pulse Pulse Resp BP BP Pulse Ox 12/30/24 03:11 98.2 F 95 22 108/68 95 12/29/24 23:38 98.1 F 94 18 100/63 92 L 12/29/24 21:10 97.4 F L 89 20 111/73 94 L 12/29/24 20:01 97 18 93/63 95 12/29/24 18:32 100 12/29/24 18:25 95 12/29/24 15:55 102 H 20 110/75 92 L 12/29/24 14:21 106 H 20 103/62 91 L 12/29/24 13:56 112 H 20 104/64 91 L 12/29/24 13:26 91 L 12/29/24 13:03 98.7 F 131 H 20 102/64 87 L 12/29/24 12:59 117 H 12/29/24 12:23 138 H 12/29/24 12:18 124 H 12/29/24 12:06 120 H 12/29/24 12:03 109 H 22 115/80 91 L 12/29/24 11:44 99.4 F 140 H 22 112/71 91 L 12/29/24 11:15 24 12/29/24 10:54 97.8 F 98 20 106/67 91 L Intake and Output 12/29/24 12/29/24 12/30/24 14:59 22:59 06:59 Intake Total 7.917 296.821 106.167 Balance 7.917 296.821 106.167 Intake: Intake, IV Titration 7.917 56.821 106.167 Amount Diltiazem 125 mg In 7.917 106.167 Dextrose 5% in Water 100 ml @ 5 MG/HR 5 mls/hr IV .Q24H [facility] Rx#:[id number] Heparin Sod,Pork in 0.45% 56.821 NaCl 25,000 unit In 0.45 % NaCl 1 250ml.bag @ 12 UNITS/KG/HR 7.947 mls/hr IV .Q24H [facility] Rx#: [id number] Oral 240 Other: Voiding Method Toilet Toilet Weight 66.224 kg 66.224 kg Results CBC & Chem 7: 12/30/24 02:55 12/29/24 11:37 Labs: Abnormal Lab Results - Last 24 Hours (Table) 12/29/24 12/29/24 12/29/24 Range/Units 11:37 11:37 18:32 WBC (4.50-10.00) 10*3/uL MPV 9.2 L (9.5-12.2) fL Neutrophils # (1.80-7.70) 10*3/uL Eosinophils # 0.00 L (0.04-0.35) 10*3/uL APTT 37.1 H (22.0-30.0) sec Sodium 136 L (137-145) mmol/L Glucose 124 H (74-99) mg/dL AST 41 H (14-36) U/L 12/30/24 12/30/24 Range/Units 02:55 02:55 WBC 3.62 L (4.50-10.00) 10*3/uL MPV (9.5-12.2) fL Neutrophils # 1.02 L (1.80-7.70) 10*3/uL Eosinophils # 0.00 L (0.04-0.35) 10*3/uL APTT 50.2 H (22.0-30.0) sec Sodium (137-145) mmol/L Glucose (74-99) mg/dL AST (14-36) U/L Thrombosis Risk Factor Assmnt - Choose All That Apply Each Factor Represents 1 point: Abnormal pulmonary function (COPD), Medical pt on bed rest, Obesity (BMI >25), Serious lung disease incl. pneumonia (< 1month) Each Risk Factor Represents 2 Points: Age 61-74 years Thrombosis Risk Factor Assessment Total Risk Factor Score: 6 Thrombosis Risk Factor Assessment Level: High Risk
[2024-12-30 07:09] LABS: RSV Not Detected (Not Detectd)
[2024-12-30 08:09] LABS: African American GFR (CKD) >90 (>60 ml/min/1.73 sqM); Anion Gap 10 mmol/L; Blood Urea Nitrogen 13 mg/dL (7-17); Calcium 9.0 mg/dL (8.4-10.2); Carbon Dioxide 23 mmol/L (22-30); Chloride 107 mmol/L (98-107); Glucose 167 mg/dL (74-99); Magnesium 2.4 mg/dL (1.6-2.3); Non-African American GFR(CKD) >90 (>60 ml/min/1.73 sqM); Potassium 4.7 mmol/L (3.5-5.1); Sodium 140 mmol/L (137-145)
[2024-12-30] MEDS: ATORVASTATIN 20 MG TAB PO SCH (08:29)
[2024-12-30] MEDS: MELOXICAM 7.5 MG TAB PO SCH (08:29)
[2024-12-30] MEDS: FLUTICASONE NASAL 50MCG/SPRAY 16GM BTL EA NOSTRIL SCH (08:30)
[2024-12-30] MEDS: SYMBICORT 160-4.5 MCG INHALER INHALATION SCH (10:13)
[2024-12-30] MEDS: IPRATROPIUM-ALBUTEROL 3 ML NEB INHALATION SCH (10:14)
--- NOTE | 2024-12-30 11:21 | CA ---
Transthoracic Echo Report Name: Endy Springer Age: 69 Gender: F : 1955 Exam Date: 12/30/2024 08:00 Exam Location: [place] Ht (in): 62 Wt (lb): 146 Ordering Physician: Truman Petersen PAC Attending/Referring Phys: ASHLEY, [employer] Custodian Kim Thomas RDCS Procedure CPT: Indications: New onset afib Cardiac Hx: Technical Quality: Good Contrast 1: Total Dose (mL): Contrast 2: Total Dose (mL): MEASUREMENTS (Male / Female) Normal Values 2D ECHO LV Diastolic Diameter PLAX 3.5 cm 4.2 - 5.9 / 3.9 - 5.3 cm LV Systolic Diameter PLAX 2.2 cm IVS Diastolic Thickness 1.1 cm 0.6 - 1.0 / 0.6 - 0.9 cm LVPW Diastolic Thickness 1.2 cm 0.6 - 1.0 / 0.6 - 0.9 cm LV Relative Wall Thickness 0.7 RV Internal Dim ED PLAX 3.0 cm LVOT Diameter 1.8 cm Aortic Root Diameter 2.9 cm LA Systolic Diameter LX 4.7 cm 3.0 - 4.0 / 2.7 - 3.8 cm LV Diastolic Volume MOD BP 59.7 cm??? 67 - 155 / 56 - 104 cm??? LV Systolic Volume MOD BP 25.8 cm??? 22 - 58 / 19 - 49 cm??? LV Ejection Fraction MOD BP 56.8 % >= 55 % LV Cardiac Index MOD BP 1617.4 cm???/min???m??? LV Diastolic Volume MOD 4C 58.1 cm??? LV Systolic Volume MOD 4C 27.3 cm??? LV Ejection Fraction MOD 4C 53.0 % LV Cardiac Index MOD 4C 1468.9 cm???/min???m??? LV Diastolic Length 4C 6.1 cm LV Systolic Length 4C 5.1 cm LV Diastolic Volume MOD 2C 58.8 cm??? LV Systolic Volume MOD 2C 24.1 cm??? LV Ejection Fraction MOD 2C 58.9 % LV Cardiac Index MOD 2C 1652.9 cm???/min???m??? LV Diastolic Length 2C 6.4 cm LV Systolic Length 2C 4.9 cm M-MODE Aortic Root Diameter MM 3.7 cm LA Systolic Diameter MM 3.2 cm LA Ao Ratio MM 0.9 AV Cusp Separation MM 2.0 cm DOPPLER Mitral E Point Velocity 133.8 cm/s Mitral A Point Velocity 3.3 cm/s Mitral E to A Ratio 40.1 MV Deceleration Time 274.4 ms TR Peak Velocity 199.9 cm/s TR Peak Gradient 16.0 mmHg Right Atrial Pressure 5.0 mmHg Pulmonary Artery Systolic Pressu 21.0 mmHg Right Ventricular Systolic Press 21.0 mmHg FINDINGS Left Ventricle Left ventricular ejection fraction is estimated at 55-60 %. Mildly increased septal wall thickness. Mildly increased posterior wall thickness. Normal left ventricular systolic function with no obvious regional wall motion abnormalities. Left ventricular cavity size normal. Right Ventricle Normal right ventricular size and function. Right ventricular systolic pressure within normal limits. Right Atrium Mild right atrial dilatation. Left Atrium Moderately increased left atrial diameter. Mitral Valve Structurally normal mitral valve. Mild mitral regurgitation. No mitral stenosis. Aortic Valve Trileaflet aortic valve. No aortic valve stenosis or regurgitation. Tricuspid Valve Structurally normal tricuspid valve. No tricuspid stenosis. Mild tricuspid regurgitation. Pulmonic Valve Structurally normal pulmonic valve. No pulmonic stenosis. Trace pulmonic regurgitation. Pericardium No pericardial or pleural effusion. Aorta Aorta at upper limits of normal. CONCLUSIONS Reason: Atrial fibrillation Preserved LV size and systolic function Left atrial enlargement Previewed by: Dr. Yahir Hinkle MD (Electronically Signed) Final Date: 30 December 2024 11:20
[2024-12-30] MEDS ORDERED: BENZONATATE 100 MG CAP PO PRN (11:33)
[2024-12-30] MEDS: OSELTAMIVIR 75 MG CAP PO SCH (11:54)
[2024-12-30] MEDS: METOPROLOL TARTRATE 50 MG TAB PO SCH (11:54)
--- NOTE | 2024-12-30 13:07 | P.CNPUL ---
History of Present Illness Consult date: 12/30/24 Requesting physician: Caio E Artemio Reason for consult: dyspnea, cough, COPD, hypoxemia, other Chief complaint: Shortness of breath. History of present illness: Pulmonary consult dated December 30, 2024. 69-year-old female who was seen by my partner yesterday in the clinic. The patient presented there with shortness of breath. She was evaluated there, and sent to the emergency department to be evaluated further. In the ER, she was found to have atrial fibrillation with RVR. In addition, she apparently tested positive for influenza A was started on Tamiflu. She has been feeling weak and fatigued. Finally, she does have COPD, and she usually takes Trelegy, and albuterol. For those 3 reasons, likely is why she is short of breath. Currently, she is on room air, and receiving IV heparin, via protocol, and Cardizem drip at 5 mg an hour. The patient also has a history of gastroesopha geal reflux disease, pneumonia, diverticular disease, among other things. The patient recently returned from [facility]. Current laboratory data includes a white count of 3.62, hemoglobin 13.6, hematocrit 41.3, and a platelet count of 220,000. PT 10.3 INR 0.9 and PTT 50.2. Sodium 140, potassium 4.7, chlorides 107, CO2 23, BUN 13, creatinine 0.64. Magnesium is 2.4. Her viral screen was positive for influenza A. Chest x-ray did not show anything acute. Review of Systems REVIEW OF SYSTEMS: Weakness and fatigue. CONSTITUTIONAL: Weakness. NEUROLOGIC: [ Negative.] HEENT: [ Negative.] CARDIAC: [Negative.] PULMONARY: Shortness of breath. GI: [Negative.] : [Negative.] RHEUMATOLOGIC: [ Negative.] IMMUNOLOGIC: [ Negative.] ENDOCRINE: [Negative. ] DERMATOLOGIC: [Negative.] Past Medical History Past Medical History: COPD, GERD/Reflux, Pneumonia Additional Past Medical History / Comment(s): pneumonia several months ago, still has cough & bringing up yellow phlegm, hx. 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 History of Any Multi-Drug Resistant Organisms: None Reported Past Surgical History: Appendectomy, Bowel Resection, Cholecystectomy, Hernia Repair, Hysterectomy, Orthopedic Surgery, Tonsillectomy Additional Past Surgical History / Comment(s): hernia repair x5, pamela cataracts removed, cyst removed under chin x3, fatty tumor removed right shoulder blade, trigger finger surgeries pamela hands, partial brace inserted right wrist, right rib resection, bunionectomy left foot Past Anesthesia/Blood Transfusion Reactions: No Reported Reaction Past Psychological History: No Psychological Hx Reported Smoking Status: Former smoker Past Alcohol Use History: None Reported Additional Past Alcohol Use History / Comment(s): quit smoking >10 yrs. ago, 1ppd, smoked since age of 16 Past Drug Use History: None Reported - Past Family History Father Family Medical History: CVA/TIA Mother Additional Family Medical History / Comment(s): mental health issues Medications and Allergies Home Medications Medication Instructions Recorded Confirmed Type EPINEPHrine (Auto Inject) [Epipen] 0.3 mg IM ONCE PRN 06/02/24 12/29/24 History Gabapentin [Neurontin] 300 mg PO DAILY@1500 06/02/24 12/29/24 History Gabapentin [Neurontin] 600 mg PO BID@0900,2100 06/02/24 12/29/24 History Ipratropium-Albuterol Nebulize 3 ml INHALATION RT-QID 06/02/24 12/29/24 History [Duoneb 0.5 mg-3 mg/3 ml Soln] Meloxicam [Mobic] 15 mg PO DAILY 06/02/24 12/29/24 History Metaxalone [Skelaxin] 800 mg PO Q8H PRN 06/02/24 12/29/24 History Rosuvastatin [Crestor] 10 mg PO DAILY 06/02/24 12/29/24 History amLODIPine [Norvasc] 5 mg PO DAILY 06/02/24 12/29/24 History QUEtiapine [SEROquel] 100 mg PO HS 07/29/24 12/29/24 History Albuterol Sulfate [Ventolin HFA] 2 puff INHALATION RT-Q4H PRN 12/29/24 12/29/24 History Cyclobenzaprine [Flexeril] 5 - 10 mg PO TID PRN 12/29/24 12/29/24 History Fluticasone Nasal [place] [Flonase 1 spr EA NOSTRIL DAILY 12/29/24 12/29/24 History Nasal [place]] Fluticasone/Umeclidin/Vilanter 1 puff INHALATION RT-DAILY 12/29/24 12/29/24 History [Trelegy Ellipta 200-62.5-25] HYDROcodone/APAP 5-325MG [[place] 1 tab PO Q8H PRN 12/29/24 12/29/24 History 5-325] Tolterodine [Detrol] 2 mg PO HS 12/29/24 12/29/24 History cycloSPORINE 0.05% OPHTH SOLN 1 drop BOTH EYES Q12H 12/29/24 12/29/24 History [Restasis] valACYclovir HCL [Valtrex] 1,000 mg PO Q2D 12/29/24 12/29/24 History Apixaban [Eliquis] 5 mg PO BID #60 tab 12/30/24 Rx Allergies Allergy/AdvReac Type Severity Reaction Status Date / Time bee venom protein (honey bee) Allergy Anaphylaxis Verified 12/29/24 16:47 sulfamethoxazole Allergy Anaphylaxis Verified 12/29/24 16:47 [From Bactrim] trimethoprim [From Bactrim] Allergy Anaphylaxis Verified 12/29/24 16:47 Quinolones AdvReac was told Verified 12/29/24 16:47 to stay away from per neurologist Physical Exam Osteopathic Statement: *. No significant issues noted on an osteopathic structural exam other than those noted in the History and Physical/Consult. Vitals: Vital Signs Temp Pulse Pulse Resp BP BP Pulse Ox 12/30/24 11:41 90 93 L 12/30/24 08:00 98.1 F 92 20 89/53 91 L 12/30/24 03:11 98.2 F 95 22 108/68 95 12/29/24 23:38 98.1 F 94 18 100/63 92 L 12/29/24 21:10 97.4 F L 89 20 111/73 94 L 12/29/24 20:01 97 18 93/63 95 12/29/24 18:32 100 12/29/24 18:25 95 12/29/24 15:55 102 H 20 110/75 92 L 12/29/24 14:21 106 H 20 103/62 91 L 12/29/24 13:56 112 H 20 104/64 91 L 12/29/24 13:26 91 L 12/29/24 13:03 98.7 F 131 H 20 102/64 87 L 12/29/24 12:59 117 H Intake and Output 12/29/24 12/30/24 12/30/24 22:59 06:59 14:59 Intake Total 296.821 106.167 Balance 296.821 106.167 Intake: Intake, IV Titration 56.821 106.167 Amount Diltiazem 125 mg In 106.167 Dextrose 5% in Water 100 ml @ 5 MG/HR 5 mls/hr IV .Q24H [facility] Rx#:[id number] Heparin Sod,Pork in 0.45% 56.821 NaCl 25,000 unit In 0.45 % NaCl 1 250ml.bag @ 12 UNITS/KG/HR 7.947 mls/hr IV .Q24H [facility] Rx#: [id number] Oral 240 Other: Voiding Method Toilet Toilet # Voids 3 Weight 66.224 kg 72.5 kg No acute distress, oriented 3. Appears pale. No respiratory distress. HEENT examination is grossly unremarkable. Mucous membranes are moist. No oral lesions. Neck supple. Full range of motion. No adenopathy thyromegaly or neck vein distention. Cardiovascular examination reveals an irregular rhythm and rate. S1-S2 normal. No S3 or S4. No discernible murmur noted. Lungs reveal rhonchi. No wheezes or crackles. Breath sounds are equal bilaterally. Saturations are in the high 80s, low 90s. Abdomen soft bowel sounds are heard. No masses or tenderness. Extremities are intact. No cyanosis clubbing or edema. Skin is without rash or lesion. Neurologic examination is brief but nonfocal. Results - Laboratory Findings CBC and BMP: 12/30/24 02:55 12/30/24 06:57 PT/INR, D-dimer PT 10.3 sec (10.0-12.5) 12/30/24 02:55 INR 0.9 (<1.2) 12/30/24 02:55 Abnormal lab findings: Abnormal Labs 12/29/24 12/29/24 12/29/24 11:37 11:37 18:32 WBC MPV 9.2 L Neutrophils # Eosinophils # 0.00 L APTT 37.1 H Sodium 136 L Glucose 124 H Magnesium AST 41 H Influenza Type A (PCR) 12/30/24 12/30/24 12/30/24 02:55 02:55 06:00 WBC 3.62 L MPV Neutrophils # 1.02 L Eosinophils # 0.00 L APTT 50.2 H Sodium Glucose Magnesium AST Influenza Type A (PCR) Detected A 12/30/24 06:57 WBC MPV Neutrophils # Eosinophils # APTT Sodium Glucose 167 H Magnesium 2.4 H AST Influenza Type A (PCR) - Diagnostic Findings Chest x-ray: image reviewed Assessment and Plan Assessment: Shortness of breath, multifactorial, in part related to COPD exacerbation, atrial fibrillation with RVR, new onset, and influenza A infection. In addition, pulmonary embolism, should be ruled out. History of COPD from previous tobacco use. History of pneumonia. History of gastroesophageal reflux disease. Prior history of bowel resection. Previous history of tobacco use. Plan: Plan dated December 30, 2024. The patient presents to the hospital, with weakness, fatigue, and shortness of breath. She has a history of underlying COPD, and was seen in the office yesterday by my partner. She was sent to the ER for further evaluation. She was noted to have atrial fibrillation with RVR, which is a new finding. Interestingly, the patient was on a recent trip to [place]. PE should be ruled out. A CT angiogram was ordered. In addition, the patient was found to have influenza A, started on Tamiflu. Labs, x-rays, and all medications are reviewed. We will continue to follow make recommendations along the way. Prognosis is guarded. Dictation was produced using [employer] software. Please excuse any grammatical, word or spelling errors. Time with Patient: Greater than 30
--- NOTE | 2024-12-30 14:25 | CT ---
EXAMINATION TYPE: CT chest angio for PE DATE OF EXAM: 12/30/2024 2:03 PM COMPARISON: None. CLINICAL INDICATION: Female, 69 years old with history of Hypoxic, recent long travel, new A fib, Hyp oxic recent long travel, new Afib TECHNIQUE: Axial images were obtained at 5 mm thick sections. Reconstructed images are reviewed on [employer] computer in the coronal plane. Contrast used:100ml mL of Isovue 370 with IV Contrast, (none if empty) Oral contrast used: (none if empty) CT DLP: 280.4 mGycm, Automated exposure control for dose reduction was used. FINDINGS: Portion of the thyroid visualized is normal. There is stable posterior left apical nodule. Stable subpleural densities along the lateral left uppe r lobe, example image series 406 image 26. Punctate nodularity along the anterolateral right upper lung field is stable. Series 406 image 42 the re is some infiltrate just superior to this level which is an interval finding. Some pleural thicken ing along the lateral right upper lung field. Series 406 image 37 The small density along the lateral left lung major fissure is not as apparent on current examination ars previous No enlarged mediastinal or hilar adenopathy is evident. The ascending aorta diameter at the level o f the main pulmonary artery is 3.5 cm. The main pulmonary artery diameter at the bifurcation is 3.0 cm. No significant coronary artery calcifications. Limited CT sections are obtained through the upper abdomen. Abdomen is essentially unremarkable. IMPRESSION: 1. Stable appearing densities throughout the peripheral upper lung lyn. 2. Some new infiltrate is in the anterior right upper lung field which is nonspecific. Short-term fol low-up is recommended [facility] Franci Mckeon, , 12/30/2024 2:23 PM
[2024-12-30] MEDS: GABAPENTIN 300 MG CAP PO SCH (15:48)
--- NOTE | 2024-12-30 17:14 | P.CRDCN ---
History of Present Illness Consult date: 12/30/24 History of present illness: HISTORY OF PRESENTING ILLNESS: 69-year-old female saw Dr. Shrestha in the office where she was noticed to be in irregular pulse along with respiratory distress for which she was sent to the ER. On admission she was tested positive for influenza A and was noticed to be in atrial fibrillation with RVR. She also noticed to be in acute COPD exa cerbation. Patient reports that recently she has been traveling from [place] No prior reported history of atrial fibrillation. ..................................................................... ......................................................................... Pertient Vitals: 101/63, heart rate 71 bpm [facility] Labs: Hb 13.9, BUN 12, creatinine 0.79, NT-proBNP 77, troponin 0.012. EKG: Admission ECG showed atrial fibrillation with RVR heart rate 137 bpm Pertient Imaging: CTA chest, stable left apical lung nodule, new right upper lung infiltrates, no evidence of obvious central PE ................................................................................ .............................................................. Prior cardiac testing: Echo from this admission showed is an EF of 55 to 60%, moderate left atrial dilatation Mild MR, ..................................... ................................................................................ ......................... REVIEW OF SYSTEMS: 14 point review of system is negative except what is mentioned above in HPI. ................................................................................ .............................................................. PHYSICAL EXAMINATION: Neck: Brisk carotid upstroke, no jugular venous distention. Lungs: Diminished air entry in bilateral lower lung field along with diffuse wheezing Heart: Irregular pulse S1-S2, , no murmur or rub. Abdomen: Soft nontender, positive bowel sounds. Extremities: No edema, intact distal pulses. Neuro: Alert, oritented, no focal deficits. Detailed neuro exam was not performed. ............................................................ ................................................................................ .. ASSESSMENT: # Acute COPD exacerbation # Influenza A pneumonia # Atrial fibrillation with RVR, currently rate controlled A-fib. First diagnosed 12/2024 in setting of acute influenza A and COPD exacerbation. [id number] # Essential hypertension # Dyslipidemia # Ex-smoker stopped in 2008. # Left upper lung nodule, stable PLAN: Discontinue heparin, Eliquis 5 twice daily Continue metoprolol 50 mg twice daily Supportive care for influenza A Hold amlodipine, resume rosuvastatin on discharge. Check for A1c, lipids, TSH, magnesium. Give 1 g of magnesium IV At this time patient is stable from cardiovascular standpoint. Cardiology team will sign off. Please reconsult us in case of any question. Follow-up outpatient with cardiology for further A-fib workup. If she does not spontaneously cardiovert, consider rhythm control with cardioversion or antiarrhythmics Calderon Cortez MD, FACC, RPVI Past Medical History Past Medical History: COPD, GERD/Reflux, Pneumonia Additional Past Medical History / Comment(s): pneumonia several months ago, s till has cough & bringing up yellow phlegm, hx. 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 History of Any Multi-Drug Resistant Organisms: None Reported Past Surgical History: Appendectomy, Bowel Resection, Cholecystectomy, Hernia Repair, Hysterectomy, Orthopedic Surgery, Tonsillectomy Additional Past Surgical History / Comment(s): hernia repair x5, pamela cataracts removed, cyst removed under chin x3, fatty tumor removed right shoulder blade, trigger finger surgeries pamela hands, partial brace inserted right wrist, right rib resection, bunionectomy left foot Past Anesthesia/Blood Transfusion Reactions: No Reported Reaction Past Psychological History: No Psychological Hx Reported Smoking Status: Former smoker Past Alcohol Use History: None Reported Additional Past Alcohol Use History / Comment(s): quit smoking >10 yrs. ago, 1ppd, smoked since age of 16 Past Drug Use History: None Reported - Past Family History Father Family Medical History: CVA/TIA Mother Additional Family Medical History / Comment(s): mental health issues Medications and Allergies Home Medications Medication Instructions Recorded Confirmed Type EPINEPHrine (Auto Inject) [Epipen] 0.3 mg IM ONCE PRN 06/02/24 12/29/24 History Gabapentin [Neurontin] 300 mg PO DAILY@1500 06/02/24 12/29/24 History Gabapentin [Neurontin] 600 mg PO BID@0900,2100 06/02/24 12/29/24 History Ipratropium-Albuterol Nebulize 3 ml INHALATION RT-QID 06/02/24 12/29/24 History [Duoneb 0.5 mg-3 mg/3 ml Soln] Meloxicam [Mobic] 15 mg PO DAILY 06/02/24 12/29/24 History Metaxalone [Skelaxin] 800 mg PO Q8H PRN 06/02/24 12/29/24 History Rosuvastatin [Crestor] 10 mg PO DAILY 06/02/24 12/29/24 History amLODIPine [Norvasc] 5 mg PO DAILY 06/02/24 12/29/24 History QUEtiapine [SEROquel] 100 mg PO HS 07/29/24 12/29/24 History Albuterol Sulfate [Ventolin HFA] 2 puff INHALATION RT-Q4H PRN 12/29/24 12/29/24 History Cyclobenzaprine [Flexeril] 5 - 10 mg PO TID PRN 12/29/24 12/29/24 History Fluticasone Nasal [place] [Flonase 1 spr EA NOSTRIL DAILY 12/29/24 12/29/24 History Nasal [place]] Fluticasone/Umeclidin/Vilanter 1 puff INHALATION RT-DAILY 12/29/24 12/29/24 History [Trelegy Ellipta 200-62.5-25] HYDROcodone/APAP 5-325MG [[place] 1 tab PO Q8H PRN 12/29/24 12/29/24 History 5-325] Tolterodine [Detrol] 2 mg PO HS 12/29/24 12/29/24 History cycloSPORINE 0.05% OPHTH SOLN 1 drop BOTH EYES Q12H 12/29/24 12/29/24 History [Restasis] valACYclovir HCL [Valtrex] 1,000 mg PO Q2D 12/29/24 12/29/24 History Apixaban [Eliquis] 5 mg PO BID #60 tab 12/30/24 Rx Allergies Allergy/AdvReac Type Severity Reaction Status Date / Time bee venom protein (honey bee) Allergy Anaphylaxis Verified 12/29/24 16:47 sulfamethoxazole Allergy Anaphylaxis Verified 12/29/24 16:47 [From Bactrim] trimethoprim [From Bactrim] Allergy Anaphylaxis Verified 12/29/24 16:47 Quinolones AdvReac was told Verified 12/29/24 16:47 to stay away from per neurologist Physical Exam Vitals: Vital Signs Temp Pulse Pulse Resp BP BP Pulse Ox 12/30/24 16:32 88 12/30/24 16:17 91 12/30/24 16:00 74 18 101/63 94 L 12/30/24 14:00 92 20 12/30/24 11:50 91 12/30/24 11:41 90 93 L 12/30/24 08:00 98.1 F 92 20 89/53 91 L 12/30/24 03:11 98.2 F 95 22 108/68 95 12/29/24 23:38 98.1 F 94 18 100/63 92 L 12/29/24 21:10 97.4 F L 89 20 111/73 94 L 12/29/24 20:01 97 18 93/63 95 12/29/24 18:32 100 12/29/24 18:25 95 Intake and Output 12/30/24 12/30/24 12/30/24 06:59 14:59 22:59 Intake Total 106.167 240 Balance 106.167 240 Intake: Intake, IV Titration 106.167 Amount Diltiazem 125 mg In 106.167 Dextrose 5% in Water 100 ml @ 5 MG/HR 5 mls/hr IV .Q24H [facility] Rx#:[id number] Oral 240 Other: Voiding Method Toilet # Voids 3 Weight 72.5 kg Results 12/30/24 02:55 12/30/24 06:57 Coagulation 12/29/24 12/30/24 12/30/24 Range/Units 18:32 02:55 02:55 PT 10.3 (10.0-12.5) sec APTT 37.1 H 50.2 H (22.0-30.0) sec CBC 12/30/24 Range/Units 02:55 WBC 3.62 L (4.50-10.00) 10*3/uL RBC 4.45 (4.10-5.20) 10*6/uL Hgb 13.6 (12.0-15.0) g/dL Hct 41.3 (37.2-46.3) % Plt Count 220 (140-440) 10*3/uL Comprehensive Metabolic Panel 12/30/24 Range/Units 06:57 Sodium 140 (137-145) mmol/L Potassium 4.7 (3.5-5.1) mmol/L Chloride 107 (98-107) mmol/L Carbon Dioxide 23 (22-30) mmol/L BUN 13 (7-17) mg/dL Creatinine 0.64 (0.52-1.04) mg/dL Glucose 167 H (74-99) mg/dL Calcium 9.0 (8.4-10.2) mg/dL Current Medications Generic Name Dose Route Start Last Admin Trade Name Freq PRN Reason Stop Dose Admin Acetaminophen 650 mg 12/29/24 13:29 Acetaminophen Tab 325 Mg Tab PO Q4HR PRN Mild Pain or Fever > 100.5 Hydrocodone Bitart/Acetaminophen 1 each 12/29/24 21:51 Hydrocodone/Apap 5-325mg 1 Each Tab PO Q8H PRN Pain Albuterol/Ipratropium 3 ml 12/29/24 13:29 Ipratropium-Albuterol 3 Ml Neb INHALATION RT-Q2H PRN Shortness Of Breath Or Wheezing Albuterol/Ipratropium 3 ml 12/30/24 08:00 12/30/24 16:17 Ipratropium-Albuterol 3 Ml Neb INHALATION 3 ml RT-QID [facility] Administration Atorvastatin Calcium 20 mg 12/30/24 09:00 12/30/24 08:29 Atorvastatin 20 Mg Tab PO 20 mg DAILY [facility] Administration Benzonatate 100 mg 12/30/24 11:33 Benzonatate 100 Mg Cap PO TID PRN Cough Budesonide/Formoterol Fumarate 2 puff 12/30/24 08:00 12/30/24 10:13 Symbicort 160-4.5 Mcg Inhaler INHALATION Not Given RT-BID [facility] Cyclosporine 1 drops 12/29/24 22:00 12/30/24 08:29 Cyclosporine 0.05% Ophth 0.4 Ml Droperette BOTH EYES 1 drops Q12HR [facility] Administration Fluticasone Propionate 1 spray 12/30/24 09:00 12/30/24 08:30 Fluticasone Nasal 50mcg/[place] 16gm Btl EA NOSTRIL Not Given DAILY [facility] Gabapentin 300 mg 12/30/24 15:00 12/30/24 15:48 Gabapentin 300 Mg Cap PO 300 mg DAILY@1500 [facility] Administration Gabapentin 600 mg 12/29/24 21:51 12/30/24 08:29 Gabapentin 300 Mg Cap PO 600 mg BID@0900,2100 [facility] Administration Meloxicam 15 mg 12/30/24 09:00 12/30/24 08:29 Meloxicam 7.5 Mg Tab PO 15 mg DAILY [facility] Administration Metoprolol Tartrate 50 mg 12/30/24 11:45 12/30/24 11:54 Metoprolol Tartrate 50 Mg Tab PO 50 mg BID [facility] Administration Naloxone HCl 0.2 mg 12/29/24 13:29 Naloxone 0.4 Mg/Ml 1 Ml Vial IVP Q2M PRN Opioid Reversal Oseltamivir Phosphate 75 mg 12/30/24 09:30 12/30/24 11:54 Oseltamivir 75 Mg Cap PO 01/03/25 21:01 75 mg Q12HR [facility] Administration Protocol Oxybutynin Chloride 5 mg 12/30/24 21:00 Oxybutynin Xl 5 Mg Tab.Er.24 PO HS [facility] Prednisone 30 mg 12/31/24 09:00 Prednisone 10 Mg Tab PO DAILY [facility] Quetiapine Fumarate 100 mg 12/29/24 22:00 12/29/24 22:10 Quetiapine 100 Mg Tab PO 100 mg HS [facility] Administration Intake and Output 12/30/24 12/30/24 12/30/24 06:59 14:59 22:59 Intake Total 106.167 240 Balance 106.167 240 Intake: Intake, IV Titration 106.167 Amount Diltiazem 125 mg In 106.167 Dextrose 5% in Water 100 ml @ 5 MG/HR 5 mls/hr IV .Q24H [facility] Rx#:[id number] Oral 240 Other: Voiding Method Toilet # Voids 3 Weight 72.5 kg 12/30/24 02:55 12/30/24 06:57
[2024-12-30 18:06] LABS: Magnesium 2.4 mg/dL (1.6-2.3)
--- NOTE | 2024-12-30 19:08 | P.PN ---
Subjective Progress Note Date: 12/30/24 This is a pleasant 69-year-old female who presented to the emergency department with increasing shortness of breath and cough and found to be in atrial fibrillation with RVR, new onset. Patient reports she follows with Dr. Silvestre, history of COPD with previous history of pneumonia and denies illicit drug use or alcohol use. Patient reports she does have inhalers and breathing treatments at the home although does not use any oxygen and is currently requiring 2 to 3 L via nasal cannula. Patient recently went on vacation but denies any sick contacts. Chest x-ray obtained shows COPD changes with no acute cardiopulmonary disease process noted. Revealing atrial fibrillation with RVR which is new onset and patient was placed on heparin and Cardizem and being admitted with cardiology consultation. As patient has recently traveled order Cepheid testing which is pending. Patient denies any recent sick contacts. Labs on admission also reviewed reveal a white count of 5.73, hemoglobin stable at 13.9, sodium 136 with a potassium of 4.2, BUN is 12 and creatinine 0.78, lactic acid 1.6, ALT 23, AST 41, initial troponin is negative and BNP is 77. 12/30/2024 Patient is seen in follow-up today continues to be on IV Cardizem as well as heparin and awaiting cardiology evaluation. Patient has new onset atrial fibrillation. Patient did undergo virology testing and was positive for influenza. Will initiate Tamiflu. Patient is currently receiving breathing treatments with pulmonary following and awaiting consult as well and follows with Dr. Shrestha outpatient. Patient does have a congested cough with some phlegm production although mostly clear and is afebrile and maintained on room air. Encouraged to increase activity as tolerated and continue to encourage oral intake. Review of systems: Constitutional: No reports of fatigue, fever, or chills Cardiovascular: No reports of chest pain or palpitations Respiratory: reports of shortness of breath when having coughing spells, feeling slightly improved GI: No reports of nausea, vomiting, or diarrhea, reports not much of an appetite : No reports of dysuria or retention Neurovascular: No reports of weakness or numbness All medications have been reviewed PHYSICAL EXAMINATION: GENERAL: The patient is alert and oriented x3, not in any acute distress. Well developed, well nourished. Ill-appearing, elderly appearing HEENT: Pupils are round and equally reacting to light. EOMI. No scleral icterus. No conjunctival pallor. Normocephalic, atraumatic. No pharyngeal erythema. No thyromegaly. CARDIOVASCULAR: S1 and S2 muffled, irregular on the monitor, A-fib with RVR PULMONARY: Diminished breath sounds bilaterally with minimal faint expiratory wheezing and coarse rhonchi noted ABDOMEN: Soft, nontender, nondistended, normoactive bowel sounds. No palpable organomegaly. MUSCULOSKELETAL: No joint swelling or deformity. EXTREMITIES: No cyanosis, clubbing, or pedal edema. NEUROLOGICAL: Gross neurological examination did not reveal any focal deficits. Diffusely weak SKIN: No rashes. Assessment: Shortness of breath, multifactorial secondary to COPD exacerbation as well as atrial fibrillation with RVR new onset Acute hypoxic respiratory failure secondary to above, improving on room air History of COPD, acute exacerbation Influenza a positive Recent travel to and from [place], returned home December 23 Former smoker History of GERD GI prophylaxis DVT prophylaxis Full code Plan: Patient was admitted with shortness of breath with COPD exacerbation also atrial fibrillation with RVR new onset and started on Cardizem and heparin. Cardiology consulted and pending at this time, will continue IV heparin and discontinue C ardizem, start Toprol 50 mg twice daily. Monitor blood pressure closely as patient is currently on the lower side. Pulmonary consulted as well for COPD and recommend breathing treatments. Patient was given a dose of IV steroids in the ER and will continue with inhaled steroids, continued cough, supportive care Patient with cough and congestion and recent travel, obtained virology testing including influenza, RSV, COVID and patient is positive for influenza A, being started on Tamiflu 2D echo ordered in the ER and pending at this time We will await cardiology evaluation and continue with supportive care Patient is currently on room air Patient is feeling significantly improved from yesterday and will monitor overnight and await recommendations from pulmonary and cardiology with possible discharge planning in the next 24 hours. Prescription for Eliquis was sent to the pharmacy for verification of payment. Unfortunately if this prescription was not delivered to the room, a prescription will need to be sent to another pharmacy as [facility] is closed on weekends. The impression and plan of care has been dictated by Sera Carter, Nurse Practitioner as directed. Dr. Tyler MD I have performed a history and examination and MDM of this patient, discussed the same with the dictator, and agree with the dictator's assessment and plan as written ,documented as a scribe. Based on total visit time, I have performed more than 50% of the visit. Objective - Vital Signs Vital signs: Vital Signs Temp 98.2 F 12/30/24 03:11 Pulse 95 12/30/24 03:11 Resp 22 12/30/24 03:11 BP 108/68 12/30/24 03:11 Pulse Ox 95 12/30/24 03:11 FiO2 Intake & Output 12/29/24 12/30/24 12/30/24 18:59 06:59 18:59 Intake Total 7.917 402.988 Balance 7.917 402.988 Weight 66.224 kg 72.5 kg Intake: Intake, IV Titration 7.917 162.988 Amount Diltiazem 125 mg In 7.917 106.167 Dextrose 5% in Water 100 ml @ 5 MG/HR 5 mls/hr IV .Q24H [facility] Rx#:[id number] Heparin Sod,Pork in 0.45% 56.821 NaCl 25,000 unit In 0.45 % NaCl 1 250ml.bag @ 12 UNITS/KG/HR 7.947 mls/hr IV .Q24H [facility] Rx#: [id number] Oral 240 Other: Voiding Method Toilet # Voids 3 - Labs CBC & Chem 7: 12/30/24 02:55 12/30/24 06:57 Labs: Abnormal Lab Results - Last 24 Hours (Table) 12/29/24 12/29/24 12/29/24 Range/Units 11:37 11:37 18:32 WBC (4.50-10.00) 10*3/uL MPV 9.2 L (9.5-12.2) fL Neutrophils # (1.80-7.70) 10*3/uL Eosinophils # 0.00 L (0.04-0.35) 10*3/uL APTT 37.1 H (22.0-30.0) sec Sodium 136 L (137-145) mmol/L Glucose 124 H (74-99) mg/dL AST 41 H (14-36) U/L Influenza Type A (PCR) (Not Detectd) 12/30/24 12/30/24 12/30/24 Range/Units 02:55 02:55 06:00 WBC 3.62 L (4.50-10.00) 10*3/uL MPV (9.5-12.2) fL Neutrophils # 1.02 L (1.80-7.70) 10*3/uL Eosinophils # 0.00 L (0.04-0.35) 10*3/uL APTT 50.2 H (22.0-30.0) sec Sodium (137-145) mmol/L Glucose (74-99) mg/dL AST (14-36) U/L Influenza Type A (PCR) Detected A (Not Detectd)
[2024-12-30 19:12] LABS: T4, Free (Free Thyroxine) 1.69 ng/dL (0.78-2.19)
[2024-12-30] MEDS: OXYBUTYNIN XL 5 MG TAB.ER.24 PO SCH (21:20)
[2024-12-30] MEDS: APIXABAN 5 MG TAB PO SCH (21:21)
[2024-12-30] MEDS: MAGNESIUM SULFATE-D5W PMX 1 GM in DEXTROSE/WATER 1 100ML.BAG IVPB ONE (21:21)
[2024-12-31 03:36] LABS: Cholesterol 176.00 mg/dL (0.00-200.00); HDL Cholesterol 42.20 mg/dL (40.00-60.00); LDL Cholesterol,Calculated 106.2 mg/dL (0.0-131.0); Triglycerides 138.00 mg/dL (0.00-149.00); VLDL Calculation 27.60 mg/dL (5.00-40.00)
[2024-12-31 09:32] VITALS: BP 90/61; RESP 16; TEMP 98
[2024-12-31] MEDS: predniSONE 10 MG TAB PO SCH (09:32)
--- NOTE | 2024-12-31 10:23 | P.PN ---
Subjective Progress Note Date: 12/31/24 Principal diagnosis: Weakness, shortness of breath. Pulmonary consult dated December 30, 2024. 69-year-old female who was seen by my partner yesterday in the clinic. The patient presented there with shortness of breath. She was evaluated there, and sent to the emergency department to be evaluated further. In the ER, she was found to have atrial fibrillation with RVR. In addition, she apparently tested positive for influenza A was started on Tamiflu. She has been feeling weak and fatigued. Finally, she does have COPD, and she usually takes Trelegy, and albuterol. For those 3 reasons, likely is why she is short of breath. Currently, she is on room air, and receiving IV heparin, via protocol, and Cardizem drip at 5 mg an hour. The patient also has a history of gastr oesophageal reflux disease, pneumonia, diverticular disease, among other things. The patient recently returned from [place]. Current laboratory data includes a white count of 3.62, hemoglobin 13.6, hematocrit 41.3, and a platelet count of 220,000. PT 10.3 INR 0.9 and PTT 50.2. Sodium 140, potassium 4.7, chlorides 107, CO2 23, BUN 13, creatinine 0.64. Magnesium is 2.4. Her viral screen was positive for influenza A. Chest x-ray did not show anything acute. Progress note dated December 31, 2024. 69-year-old female seen in consultation yesterday. Please see my note above. She was admitted through the emergency department with complaints of shortness of breath, weakness and fatigue. The patient was tested for influenza, tested positive for influenza A. She was placed on Tamiflu. In addition, the patient was having a COPD exacerbation, and in addition, was found to have atrial fibr illation with RVR. Currently, the patient is seen in room 356. She is on room air. We did a CTA on her, and it was negative for pulmonary embolism. She is currently on Trelegy, which she uses at home, and albuterol. Will discontinue the Symbicort, and the DuoNebs. Would place her just on plain albuterol. No new labs today, other than a PTT of 23.3. Objective - Vital Signs Vital signs: Vital Signs Temp 98.0 F 12/31/24 09:24 Pulse 98 12/31/24 09:24 Resp 16 12/31/24 09:24 BP 90/61 12/31/24 09:24 Pulse Ox 93 L 12/31/24 09:24 FiO2 Intake & Output 12/30/24 12/31/24 12/31/24 18:59 06:59 18:59 Intake Total 240 Balance 240 Weight 67.3 kg Intake: Oral 240 Other: Voiding Method Toilet # Voids 2 - Exam No acute distress, oriented 3. Appears pale. No respiratory distress. HEENT examination is grossly unremarkable. Mucous membranes are moist. No oral lesions. Neck supple. Full range of motion. No adenopathy thyromegaly or neck vein distention. Cardiovascular examination reveals a regular rhythm and rate. S1-S2 normal. No S3 or S4. No discernible murmur noted. Lungs reveal rhonchi. No wheezes or crackles. Breath sounds are equal bilaterally. Saturations are excellent. Abdomen soft bowel sounds are heard. No masses or tenderness. Extremities are intact. No cyanosis clubbing or edema. Skin is without rash or lesion. Neurologic examination is brief but nonfocal. - Labs CBC & Chem 7: 12/30/24 02:55 12/30/24 06:57 Labs: Abnormal Lab Results - Last 24 Hours (Table) 12/30/24 Range/Units 06:57 Magnesium 2.4 H (1.6-2.3) mg/dL TSH 0.407 L (0.465-4.680) mIU/L Assessment and Plan Assessment: Shortness of breath, multifactorial, in part related to COPD exacerbation, atrial fibrillation with RVR, new onset, and influenza A infection. In addition, pulmonary embolism, should be ruled out. History of COPD from previous tobacco use. History of pneumonia. History of gastroesophageal reflux disease. Prior history of bowel resection. Previous history of tobacco use. Plan: Plan dated December 30, 2024. The patient presents to the hospital, with weakness, fatigue, and shortness of breath. She has a history of underlying COPD, and was seen in the office yesterday by my partner. She was sent to the ER for further evaluation. She was noted to have atrial fibrillation with RVR, which is a new finding. Interestingly, the patient was on a recent trip to [place]. PE should be ruled out. A CT angiogram was ordered. In addition, the patient was found to have influenza A, started on Tamiflu. Labs, x-rays, and all medications are reviewed. We will continue to follow make recommendations along the way. Prognosis is guarded. Dictation was produced using [employer] software. Please excuse any grammatical, word or spelling errors. Plan dated December 31, 2024. The patient is doing very well. A CT angiogram, was negative for pulmonary embolism. The patient is currently on room air. She is not receiving any IV fluids. Labs, x-rays, and all medications are reviewed. The patient will be using her home Trelegy, 1 puff daily. In addition, we discontinue the Symbicort. Also, the DuoNebs were discontinued in favor of plain albuterol. All labs, x-rays, and medications are reviewed. We will continue to follow the patient, make recommendations were appropriate. Prognosis is guarded. Dictation was produced using [employer] software. Please excuse any grammatical, word or spelling errors. Time with Patient: Less than 30
[2024-12-31] MEDS: ALBUTEROL NEBULIZED 2.5 MG/3 ML INHALATION SCH (12:09)
[2024-12-31 12:11] VITALS: PULSE 84
--- NOTE | 2025-01-02 16:32 | P.DS ---
Providers Date of admission: 12/29/24 13:52 Attending physician: Caio Ulloa MD Consults: 12/29/24 13:29 Consult Physician Routine Consulting Provider: Diego Crouch Consult Reason/Comments: COPD exacerbation, hypoxia Do you want consulting provider notified?: Yes Primary care physician: Catarina Silvestre Hospital Course: Final Diagnosis Shortness of breath, multifactorial secondary to COPD exacerbation as well as atrial fibrillation with RVR new onset Acute hypoxic respiratory failure secondary to above, improving on room air History of COPD, acute exacerbation Influenza a positive Recent travel to and from [place], returned home December 23 Former smoker History of GERD Discharge Disposition Patient is stable for discharge home. Recommend to complete course of oral tamiflu twice daily for the next 3 days, continue oral prednisone taper. Tessalon perrles are offered for the cough as needed. Patient has been started on oral metoprolol 50 mg twice daily for heart rate control. Patient has been discharged on eliquis 5 mg twice daily. Recommend close follow up with Dr Cortez in the office in 1 week. Recommend follow up with her known senior product designer Dr Shrestha in 1 week. Follow up with Dr Silvestre PCP 1 to 2 days. Hospital Course This is a pleasant 69-year-old female who presented to the emergency department with increasing shortness of breath and cough and found to be in atrial fibrillation with RVR, new onset. Patient reports she follows with Dr. Silvestre, history of COPD with previous history of pneumonia and denies illicit drug use or alcohol use. Patient reports she does have inhalers and breathing treatments at the home although does not use any oxygen and is currently requiring 2 to 3 L via nasal cannula. Patient recently went on vacation overseas but denies any sick contacts. Chest x-ray obtained shows COPD changes with no acute cardiopulmonary disease process noted. Revealing atrial fibrillation with RVR which is new onset and patient was placed on heparin and Cardizem and being admitted with cardiology consultation. Viral panel was completed which was negative for covid and RSV. Patient was positive for influenza A. Labs on admission also reviewed reveal a white count of 5.73, hemoglobin stable at 13.9, sodium 136 with a potassium of 4.2, BUN is 12 and creatinine 0.78, lactic acid 1.6, ALT 23, AST 41, initial troponin is negative and BNP is 77. Patient was started on tamiflu 75 mg twice daily. Had chest CT angiography showing stable appearing densities throughout the peripheral upper lung lyn. Some new infiltrate is in the anterior right upper lung field which is nonspecific. Short-term follow up is recommended. No Pulmonary embolism was mentioned. Echocardiogram reveals preserved LV size and systolic function with left atrial enlargement. LFTs were completed revealing triglycerides of 138, cholesterol of 176, LDL 106.2, HDL 42.20. TSH 0.407; Free T4 1.69. Patient has converted to normal sinus rhythm. She has been up ambulating without significant shortness of breath. She is on room air. Lungs are clear, free of wheezing, ronchi. patient will be discharged. Will be discharged on oral metoprolol 50 mg twice daily. Started on eliquis 5 mg twice daily. Patient is on a prednisone taper. Recommend close follow up with cardiology and pulmonology on discharge. Please see medication reconciliation for a list of current medications. Thank you for allowing us to participate in the care of this patient. The impression and plan of care has been dictated by Amrita Sharif, Nurse Practitioner as directed. Dr. Tyler MD I have performed a history and examination and MDM of this patient, discussed the same with the dictator, and agree with the dictator's assessment and plan as written ,documented as a scribe. Based on total visit time, I have performed more than 50% of the visit. Patient Condition at Discharge: Fair Plan - Discharge Summary Discharge Rx Participant: No New Discharge Prescriptions: New Metoprolol Tartrate [Lopressor] 50 mg PO BID #60 tab Apixaban [Eliquis] 5 mg PO BID #60 tab predniSONE 0 mg PO DIRECTED 6 Days #14 tab Oseltamivir [Tamiflu] 75 mg PO Q12HR 3 Days #6 cap Benzonatate [Tessalon Perles] 100 mg PO TID PRN #12 capsule PRN Reason: Cough Continue EPINEPHrine (Auto Inject) [Epipen] 0.3 mg IM ONCE PRN PRN Reason: Anaphylaxis Gabapentin [Neurontin] 600 mg PO BID@0900,2100 Gabapentin [Neurontin] 300 mg PO DAILY@1500 Rosuvastatin [Crestor] 10 mg PO DAILY Meloxicam [Mobic] 15 mg PO DAILY QUEtiapine [SEROquel] 100 mg PO HS Tolterodine [Detrol] 2 mg PO HS cycloSPORINE 0.05% OPHTH SOLN [Restasis] 1 drop BOTH EYES Q12H valACYclovir HCL [Valtrex] 1,000 mg PO Q2D Cyclobenzaprine [Flexeril] 5 - 10 mg PO TID PRN PRN Reason: Muscle Spasm Metaxalone [Skelaxin] 800 mg PO Q8H PRN PRN Reason: Muscle Spasm Ipratropium-Albuterol Nebulize [Duoneb 0.5 mg-3 mg/3 ml Soln] 3 ml INHALATION RT-QID Fluticasone/Umeclidin/Vilanter [Trelegy Ellipta 200-62.5-25] 1 puff INHALATION RT-DAILY Fluticasone Nasal [place] [Flonase Nasal [place]] 1 spr EA NOSTRIL DAILY HYDROcodone/APAP 5-325MG [[place] 5-325] 1 tab PO Q8H PRN PRN Reason: Pain Albuterol Sulfate [Ventolin HFA] 2 puff INHALATION RT-Q4H PRN PRN Reason: Shortness Of Breath Discontinued amLODIPine [Norvasc] 5 mg PO DAILY Discharge Medication List EPINEPHrine (Auto Inject) [Epipen] 0.3 mg IM ONCE PRN 06/02/24 [History] Gabapentin [Neurontin] 300 mg PO DAILY@1500 06/02/24 [History] Gabapentin [Neurontin] 600 mg PO BID@0900,2100 06/02/24 [History] Ipratropium-Albuterol Nebulize [Duoneb 0.5 mg-3 mg/3 ml Soln] 3 ml INHALATION RT-QID 06/02/24 [History] Meloxicam [Mobic] 15 mg PO DAILY 06/02/24 [History] Metaxalone [Skelaxin] 800 mg PO Q8H PRN 06/02/24 [History] Rosuvastatin [Crestor] 10 mg PO DAILY 06/02/24 [History] QUEtiapine [SEROquel] 100 mg PO HS 07/29/24 [History] Albuterol Sulfate [Ventolin HFA] 2 puff INHALATION RT-Q4H PRN 12/29/24 [History] Cyclobenzaprine [Flexeril] 5 - 10 mg PO TID PRN 12/29/24 [History] Fluticasone Nasal [place] [Flonase Nasal [place]] 1 spr EA NOSTRIL DAILY 12/29/24 [History] Fluticasone/Umeclidin/Vilanter [Trelegy Ellipta 200-62.5-25] 1 puff INHALATION RT-DAILY 12/29/24 [History] HYDROcodone/APAP 5-325MG [[place] 5-325] 1 tab PO Q8H PRN 12/29/24 [History] Tolterodine [Detrol] 2 mg PO HS 12/29/24 [History] cycloSPORINE 0.05% OPHTH SOLN [Restasis] 1 drop BOTH EYES Q12H 12/29/24 [History] valACYclovir HCL [Valtrex] 1,000 mg PO Q2D 12/29/24 [History] Apixaban [Eliquis] 5 mg PO BID #60 tab 12/31/24 [Rx] Benzonatate [Tessalon Perles] 100 mg PO TID PRN #12 capsule 12/31/24 [Rx] Metoprolol Tartrate [Lopressor] 50 mg PO BID #60 tab 12/31/24 [Rx] Oseltamivir [Tamiflu] 75 mg PO Q12HR 3 Days #6 cap 12/31/24 [Rx] predniSONE 0 mg PO DIRECTED 6 Days #14 tab 12/31/24 [Rx] Follow up Appointment(s)/Referral(s): Juilan Shrestha MD [STAFF PHYSICIAN] - 1 Week (Please call to make a follow-up with pulmonology.) Calderon Cortez MD [Medical Doctor] - 1 Week (Please call to make a follow-up with cardiology.) Catarina Silvestre DO [Primary Care Provider] - 1-2 days (Please call to make a follow-up with your primary care doctor.) Activity/Diet/Wound Care/Special Instructions: prescription sent to [facility] for anticoagulant to verify coverage Contine eliquis 5 mg twice daily this is a blood thinner for the atrial fibrillation Continue metoprolol 50 mg twice daily for heart rate control Continue Tessalon Perles as needed to control your cough and complete your prednisone taper follow-up with your senior product designer Discharge Disposition: HOME SELF-CARE
== END 2024-12-31 13:29 | disposition home or self-care (01) | DRG 193 ==
LOC: EC 10:51 → 3SCARD 13:52
PROVIDERS: ADMIT Internal Medicine; ATTEND Internal Medicine
DX: J10.01 Influenza due to other identified influenza virus with the same other identified influenza virus pneumonia (principal); J96.01 Acute respiratory failure with hypoxia; J44.0 Chronic obstructive pulmonary disease with (acute) lower respiratory infection; J44.1 Chronic obstructive pulmonary disease with (acute) exacerbation; I48.91 Unspecified atrial fibrillation; R91.1 Solitary pulmonary nodule; K21.9 Gastro-esophageal reflux disease without esophagitis; R11.2 Nausea with vomiting, unspecified; J10.2 Influenza due to other identified influenza virus with gastrointestinal manifestations; Z79.01 Long term (current) use of anticoagulants; Z79.1 Long term (current) use of non-steroidal anti-inflammatories (NSAID); Z79.84 Long term (current) use of oral hypoglycemic drugs; Z87.01 Personal history of pneumonia (recurrent); Z79.899 Other long term (current) drug therapy; Z87.891 Personal history of nicotine dependence; Z90.49 Acquired absence of other specified parts of digestive tract; Z88.2 Allergy status to sulfonamides; Z91.030 Bee allergy status
CPT/HCPCS: 36415; 71046; 71275; 80048; 80053; 80061; 83036; 83605; 83735; 83880; 84439; 84443; 84484; 85025; 85610; 85730; 87636; 93005; 93306; 94640; 94760; 96365; 96366; 96368; 96375; 99291

== ENCOUNTER 2025-01-16 15:08 | Emergency (ER) | payer MEDICARE ==
[2025-01-16 15:15] VITALS: TEMP 98
--- NOTE | 2025-01-16 15:35 | ED ---
Recheck HPI - General Chief Complaint: Recheck/Abnormal Lab/Rx Stated Complaint: Abn BP Time Seen by Provider: 01/16/25 15:18 Source: patient, RN notes reviewed Mode of arrival: ambulatory Limitations: no limitations - History of Present Illness Initial Comments: This is a 69-year-old female who presents to the emergency department for hypotension. Patient was discharged from this facility on 12/31 after being admitted for new onset A-fib and influenza. She was discharged on metoprolol and Eliquis. She does report feeling weak since discharge as well as dizzy. Her states that she spends most of the day sleeping. She checked her blood pressure at home yesterday and advised that it was in the 70s systolically. She followed up with cardiology today and her BP was in the 80s systolically. They repeated her EKG and she was in sinus rhythm. They did not identify any obvious signs of bleeding on the Eliquis. She was sent to the emergency department for further evaluation of the hypotension. Denies any chest pain or shortness of breath. - Related Data Home Medications Medication Instructions Recorded Confirmed EPINEPHrine (Auto Inject) [Epipen] 0.3 mg IM ONCE PRN 06/02/24 01/16/25 Gabapentin [Neurontin] 300 mg PO DAILY@1500 06/02/24 01/16/25 Gabapentin [Neurontin] 600 mg PO BID@0900,2100 06/02/24 01/16/25 Ipratropium-Albuterol Nebulize 3 ml INHALATION RT-QID 06/02/24 01/16/25 [Duoneb 0.5 mg-3 mg/3 ml Soln] Meloxicam [Mobic] 15 mg PO DAILY 06/02/24 01/16/25 Metaxalone [Skelaxin] 800 mg PO Q8H PRN 06/02/24 01/16/25 QUEtiapine [SEROquel] 100 mg PO HS 07/29/24 01/16/25 Albuterol Sulfate [Ventolin HFA] 2 puff INHALATION RT-Q4H PRN 12/29/24 01/16/25 Cyclobenzaprine [Flexeril] 5 - 10 mg PO TID PRN 12/29/24 01/16/25 Fluticasone Nasal [employer] [Flonase 1 spr EA NOSTRIL DAILY 12/29/24 01/16/25 Nasal [employer]] Fluticasone/Umeclidin/Vilanter 1 puff INHALATION RT-DAILY 12/29/24 01/16/25 [Trelegy Ellipta 200-62.5-25] HYDROcodone/APAP 5-325MG [Coffeen 1 tab PO Q8H PRN 12/29/24 01/16/25 5-325] Tolterodine [Detrol] 2 mg PO HS 12/29/24 01/16/25 cycloSPORINE 0.05% OPHTH SOLN 1 drop BOTH EYES Q12H 12/29/24 01/16/25 [Restasis] valACYclovir HCL [Valtrex] 1,000 mg PO Q2D 12/29/24 01/16/25 Previous Rx's Medication Instructions Recorded Apixaban [Eliquis] 5 mg PO BID #60 tab 12/31/24 Metoprolol Tartrate [Lopressor] 50 mg PO BID #60 tab 12/31/24 cefuroxime axetiL [Ceftin] 500 mg PO BID 7 Days #14 tab 01/16/25 Allergies Allergy/AdvReac Type Severity Reaction Status Date / Time bee venom protein (honey bee) Allergy Anaphylaxis Verified 01/16/25 18:03 sulfamethoxazole Allergy Anaphylaxis Verified 01/16/25 18:03 [From Bactrim] trimethoprim [From Bactrim] Allergy Anaphylaxis Verified 01/16/25 18:03 Quinolones AdvReac was told Verified 01/16/25 18:03 to stay away from per neurologist Review of Systems ROS Statement: Those systems with pertinent positive or pertinent negative responses have been documented in the HPI. ROS Other: All systems not noted in ROS Statement are negative. Past Medical History Past Medical History: COPD, GERD/Reflux, Pneumonia Additional Past Medical History / Comment(s): pneumonia several months ago, still has cough & bringing up yellow phlegm, hx. 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 History of Any Multi-Drug Resistant Organisms: None Reported Past Surgical History: Appendectomy, Bowel Resection, Cholecystectomy, Hernia Re pair, Hysterectomy, Orthopedic Surgery, Tonsillectomy Additional Past Surgical History / Comment(s): hernia repair x5, pamela cataracts removed, cyst removed under chin x3, fatty tumor removed right shoulder blade, trigger finger surgeries pamela hands, partial brace inserted right wrist, right rib resection, bunionectomy left foot Past Anesthesia/Blood Transfusion Reactions: No Reported Reaction Past Psychological History: No Psychological Hx Reported Smoking Status: Former smoker Past Alcohol Use History: None Reported Past Drug Use History: None Reported - Past Family History Father Family Medical History: CVA/TIA Mother Additional Family Medical History / Comment(s): mental health issues General Exam Limitations: no limitations General appearance: alert, in no apparent distress Head exam: Present: atraumatic, normocephalic, normal inspection Respiratory exam: Present: normal lung sounds bilaterally. Absent: respiratory distress, wheezes, rales, rhonchi, stridor Cardiovascular Exam: Present: regular rate, normal rhythm GI/Abdominal exam: Present: soft. Absent: distended, tenderness Neurological exam: Present: alert, oriented X3, CN II-XII intact Psychiatric exam: Present: normal affect, normal mood Skin exam: Present: warm, dry, intact, normal color. Absent: rash Course Vital Signs 01/16/25 01/16/25 01/16/25 15:12 16:03 19:01 Temperature 98 F Pulse Rate 81 82 Pulse Rate [ Sitting] Pulse Rate [ Standing] Pulse Rate [ Supine] Respiratory 20 20 22 Rate Blood Pressure 98/63 99/56 142/77 Blood Pressure [Sitting] Blood Pressure [Standing] Blood Pressure [Supine] O2 Sat by Pulse 93 L 95 Oximetry 01/16/25 01/16/25 21:25 22:53 Temperature 98 F Pulse Rate 86 Pulse Rate [ 83 Sitting] Pulse Rate [ 75 Standing] Pulse Rate [ 72 Supine] Respiratory 18 Rate Blood Pressure 163/81 Blood Pressure 150/85 [Sitting] Blood Pressure 134/80 [Standing] Blood Pressure 136/72 [Supine] O2 Sat by Pulse 96 Oximetry Medical Decision Making - Medical Decision Making This is a 69 year old female who presents to the emergency department for hypotension. Was pt. sent in by a medical professional or institution? @ -Cardiology Did you speak to anyone other than the patient for history? @ -No Did you review nursing and triage notes? @ -Yes, and I agree, it is accurate with regards to the patient's symptoms. Were old charts reviewed? @ -No Differential Diagnosis? @ -Infections, medications, bleeding, this is not meant to be an all-inclusive list. EKG interpreted by me (3pts min.)? @ -EKG interpreted by me demonstrating the following: Sinus rhythm. Ventricular rate 64 bpm, MS interval 159 ms, QRS duration 85 ms, QTc 458 ms. X-rays interpreted by me (1pt min.)? @ -Chest x-ray obtained, my interpretation identifies no localized consolidations or infiltrates. CT interpreted by me (1pt min.)? @ -Not obtained U/S interpreted by me (1pt. min.)? @ -Not obtained What testing was considered but not performed? (CT, X-rays, U/S, labs)? Why? @ -None What meds were considered but not given? Why? @ -None Did you discuss the management of the patient with other professionals? @ -No Did you reconcile home meds? @ -No Was smoking cessation discussed for >3mins.? @ -No Was critical care preformed (if so, how long)? @ -No Were there social determinants of health that impacted care today? How? (Homelessness, low income, unemployed, alcoholism, drug addiction, dempsey sportation, low edu. Level, literacy, decrease access to med. care, snf, rehab)? @ -No Was there de-escalation of care discussed even if they declined? (Discuss DNR or withdrawal of care, Hospice)? @ -No What co-morbidities impacted this encounter? (DM, HTN, Smoking, COPD, CAD, Cancer, CVA, Hep., AIDS, mental health diagnosis, sleep apnea, morbid obesity)? @ -A-fib Was patient admitted / discharged? @ -Discharged. Lab work unremarkable. Urinalysis consistent with infection and urine was sent for culture. Chest x-ray reveals no acute findings. Her blood pressure was soft in the 90s systolically when she arrived. She was given a liter bolus of IV fluids and blood pressure improved afterwards and was ranging from the 130s to 150s systolically. Discussed that the UTI could be contributing to this. It could also be related to the metoprolol dosing. However, this did correct very quickly with a liter of IV fluids. I did offer admission for the UTI and reevaluation of her blood pressure. However, patient advised that she would rather go home. 2 g of ceftriaxone administered in the emergency department and a prescription for cefuroxime was provided for the UTI. Advised she continue to keep track of her blood pressure and monitor it several times each day and keep a log of these values. If she continues to be hypotensive she may end up needing medication adjustments. Patient discharged home in stable condition with strict return parameters and advised to have close follow-up with her PCP and cardiology. Case discussed with ED attending Dr. Spencer. Return precautions reviewed in depth, the patient is instructed to return to the emergency department with any new, worsening, or concerning symptoms. Patient verbalized understanding. Undiagnosed new problem with uncertain prognosis? @ -None Drug Therapy requiring intensive monitoring for toxicity (Heparin, Nitro, Insulin, Cardizem)? @ -None Were any procedures done? @ -None Diagnosis/symptom? @ -UTI, hypotension Acute, or Chronic, or Acute on Chronic? @ -Acute Uncomplicated (without systemic symptoms) or Complicated (systemic symptoms)? @ -Complicated Side effects of treatment? @ -None Exacerbation, Progression, or Severe Exacerbation] @ -Not applicable Poses a threat to life or bodily function? @ -Unlikely - Lab Data Result diagrams: 01/16/25 15:55 01/16/25 15:55 Lab Results 01/16/25 01/16/25 01/16/25 Range/Units 15:55 15:55 15:55 WBC 7.64 (4.50-10.00) 10*3/uL RBC 3.73 L (4.10-5.20) 10*6/uL Hgb 11.6 L (12.0-15.0) g/dL Hct 35.5 L (37.2-46.3) % MCV 95.2 (80.0-97.0) fL MCH 31.1 (27.0-32.0) pg MCHC 32.7 (32.0-37.0) g/dL Plt Count 296 (140-440) 10*3/uL MPV 9.4 L (9.5-12.2) fL Immature Gran % (Auto) 0.5 % Neutrophils % 52.9 % Lymphocytes % 34.0 % Monocytes % 9.9 % Eosinophils % 2.2 % Basophils % 0.5 % Immature Gran # 0.04 (0.00-0.04) 10*3/uL Neutrophils # 4.03 (1.80-7.70) 10*3/uL Lymphocytes # 2.60 (0.90-5.00) 10*3/uL Monocytes # 0.76 (0.20-1.00) 10*3/uL Eosinophils # 0.17 (0.04-0.35) 10*3/uL Basophils # 0.04 (0.00-0.10) 10*3/uL PT 10.1 (10.0-12.5) sec INR 0.9 (<1.2) APTT 24.0 (22.0-30.0) sec Sodium 139 (137-145) mmol/L Potassium 4.7 (3.5-5.1) mmol/L Chloride 107 (98-107) mmol/L Carbon Dioxide 25 (22-30) mmol/L Anion Gap 7 mmol/L BUN 17 (7-17) mg/dL Creatinine 0.75 (0.52-1.04) mg/dL Est GFR (CKD-EPI)AfAm >90 (>60 ml/min/1.73 sqM) Est GFR (CKD-EPI)NonAf 82 (>60 ml/min/1.73 sqM) Glucose 92 (74-99) mg/dL Plasma Lactic Acid Meño (0.7-2.0) mmol/L Calcium 8.7 (8.4-10.2) mg/dL Magnesium 2.4 H (1.6-2.3) mg/dL Total Bilirubin 0.5 (0.2-1.3) mg/dL AST 21 (14-36) U/L ALT 15 (4-34) U/L Alkaline Phosphatase 70 (38-126) U/L Troponin I (0.000-0.034) ng/mL Total Protein 6.3 (6.3-8.2) g/dL Albumin 3.8 (3.5-5.0) g/dL Urine Color Urine Appearance (Clear) Urine pH (5.0-8.0) Ur Specific [place] (1.001-1.035) Urine Protein (Negative) Urine Glucose (UA) (Negative) Urine Ketones (Negative) Urine Blood (Negative) Urine Nitrite (Negative) Urine Bilirubin (Negative) Urine Urobilinogen (<2.0) mg/dL Ur Leukocyte Esterase (Negative) Urine RBC (0-5) /hpf Urine WBC (0-5) /hpf Ur Squamous Epith Cells (0-4) /hpf Urine Mucus (None) /hpf 01/16/25 01/16/25 01/16/25 Range/Units 15:55 15:55 17:50 WBC (4.50-10.00) 10*3/uL RBC (4.10-5.20) 10*6/uL Hgb (12.0-15.0) g/dL Hct (37.2-46.3) % MCV (80.0-97.0) fL MCH (27.0-32.0) pg MCHC (32.0-37.0) g/dL Plt Count (140-440) 10*3/uL MPV (9.5-12.2) fL Immature Gran % (Auto) % Neutrophils % % Lymphocytes % % Monocytes % % Eosinophils % % Basophils % % Immature Gran # (0.00-0.04) 10*3/uL Neutrophils # (1.80-7.70) 10*3/uL Lymphocytes # (0.90-5.00) 10*3/uL Monocytes # (0.20-1.00) 10*3/uL Eosinophils # (0.04-0.35) 10*3/uL Basophils # (0.00-0.10) 10*3/uL PT (10.0-12.5) sec INR (<1.2) APTT (22.0-30.0) sec Sodium (137-145) mmol/L Potassium (3.5-5.1) mmol/L Chloride (98-107) mmol/L Carbon Dioxide (22-30) mmol/L Anion Gap mmol/L BUN (7-17) mg/dL Creatinine (0.52-1.04) mg/dL Est GFR (CKD-EPI)AfAm (>60 ml/min/1.73 sqM) Est GFR (CKD-EPI)NonAf (>60 ml/min/1.73 sqM) Glucose (74-99) mg/dL Plasma Lactic Acid Meño 1.3 (0.7-2.0) mmol/L Calcium (8.4-10.2) mg/dL Magnesium (1.6-2.3) mg/dL Total Bilirubin (0.2-1.3) mg/dL AST (14-36) U/L ALT (4-34) U/L Alkaline Phosphatase (38-126) U/L Troponin I <0.012 (0.000-0.034) ng/mL Total Protein (6.3-8.2) g/dL Albumin (3.5-5.0) g/dL Urine Color Light Yellow Urine Appearance Cloudy H (Clear) Urine pH 5.5 (5.0-8.0) Ur Specific [place] 1.020 (1.001-1.035) Urine Protein Negative (Negative) Urine Glucose (UA) Negative (Negative) Urine Ketones Negative (Negative) Urine Blood Small H (Negative) Urine Nitrite Positive H (Negative) Urine Bilirubin Negative (Negative) Urine Urobilinogen <2.0 (<2.0) mg/dL Ur Leukocyte Esterase Large H (Negative) Urine RBC 8 H (0-5) /hpf Urine WBC 107 H (0-5) /hpf Ur Squamous Epith Cells 6 H (0-4) /hpf Urine Mucus Occasional H (None) /hpf - Radiology Data Radiology results: report reviewed, image reviewed Disposition Clinical Impression: UTI (urinary tract infection), Hypotension Disposition: HOME SELF-CARE Instructions (If sedation given, give patient instructions): Urinary Tract Infection in Women (ED) Additional Instructions: Return to the emergency department with any new, worsening, or concerning symptoms. Take the antibiotic as prescribed for 7 days. Continue to keep track of your blood pressure and check it several times each day. Follow up with your primary care provider in 1-2 days. Prescriptions: cefuroxime axetiL [Ceftin] 500 mg PO BID 7 Days #14 tab Is patient prescribed a controlled substance at d/c from ED?: No Referrals: Catarina Silvestre DO [Primary Care Provider] - 1-2 days Time of Disposition: 21:26
[2025-01-16 16:11] LABS: Basophils # (A) 0.04 10*3/uL (0.00-0.10); Basophils % (A) 0.5 %; Eosinophils # (A) 0.17 10*3/uL (0.04-0.35); Eosinophils % (A) 2.2 %; HCT 35.5 % (37.2-46.3); HGB 11.6 g/dL (12.0-15.0); Lymphocytes # (A) 2.60 10*3/uL (0.90-5.00); Lymphocytes % (A) 34.0 %; MCH 31.1 pg (27.0-32.0); MCHC 32.7 g/dL (32.0-37.0); MCV 95.2 fL (80.0-97.0); Monocytes # (A) 0.76 10*3/uL (0.20-1.00); Monocytes % (A) 9.9 %; Neutrophils # (A) 4.03 10*3/uL (1.80-7.70); Neutrophils % (A) 52.9 %; Platelet Count 296 10*3/uL (140-440); RBC 3.73 10*6/uL (4.10-5.20); RDW 14.4 % (11.5-14.5); WBC 7.64 10*3/uL (4.50-10.00)
--- NOTE | 2025-01-16 16:19 | XR ---
EXAMINATION TYPE: XR chest 2V DATE OF EXAM: 01/16/2025 4:13 PM COMPARISON: 12/29/2024 CLINICAL INDICATION: Female, 69 years old with history of Weakness: Shortness of breath TECHNIQUE: XR chest 2V views of the chest are obtained. FINDINGS: Scattered senescent parenchymal changes noted. Hyperinflation compatible with COPD. No evidence for infiltrate. No evidence for atelectasis. Heart size is stable. Mediastinal structures are stable and grossly unremarkable. No evidence for hilar prominence. Degenerative changes dorsal spine. IMPRESSION: 1. No evidence for acute pulmonary disease. [facility], , 01/16/2025 4:17 PM
[2025-01-16 16:31] LABS: ALT 15 U/L (4-34); African American GFR (CKD) >90 (>60 ml/min/1.73 sqM); Albumin 3.8 g/dL (3.5-5.0); Anion Gap 7 mmol/L; Blood Urea Nitrogen 17 mg/dL (7-17); Calcium 8.7 mg/dL (8.4-10.2); Carbon Dioxide 25 mmol/L (22-30); Chloride 107 mmol/L (98-107); Glucose 92 mg/dL (74-99); Non-African American GFR(CKD) 82 (>60 ml/min/1.73 sqM); Sodium 139 mmol/L (137-145); Total Protein 6.3 g/dL (6.3-8.2)
[2025-01-16 16:35] LABS: AST 21 U/L (14-36); Alkaline Phosphatase 70 U/L (38-126); Potassium 4.7 mmol/L (3.5-5.1)
[2025-01-16 16:36] LABS: Magnesium 2.4 mg/dL (1.6-2.3)
[2025-01-16 16:39] LABS: INR 0.9 (<1.2); Partial Thromboplastin Time 24.0 sec (22.0-30.0); Prothrombin Time 10.1 sec (10.0-12.5)
[2025-01-16] MEDS: SODIUM CHLORIDE 0.9% 1,000 ML IV ONE (16:42)
[2025-01-16 18:24] LABS: Bilirubin,Urine Negative (Negative); Blood,Urine Small (Negative); Color,Urine Light Yellow; Glucose,Urine (UA) Negative (Negative); Ketones,Urine Negative (Negative); Leukocyte Esterase,Urine Large (Negative); Mucus,Urine Occasional /hpf; Nitrite,Urine Positive (Negative); PH, Urine 5.5 (5.0-8.0); Protein,Urine Negative (Negative); RBC,Urine 8 /hpf (0-5); Specific Gravity,Urine 1.020 (1.001-1.035); Squamous Epithelial Cell,Urine 6 /hpf (0-4); Urobilinogen,Urine <2.0 mg/dL (<2.0); WBC,Urine 107 /hpf (0-5)
[2025-01-16] MEDS: cefTRIAXone IN SWFI 1,000 MG/10 ML SYRINGE IVP STA (18:58)
[2025-01-16 22:55] VITALS: BP 163/81; PULSE 86; RESP 18
== END 2025-01-16 22:54 | disposition home or self-care (01) ==
LOC: EC 15:08
DX: N39.0 Urinary tract infection, site not specified (principal); I95.9 Hypotension, unspecified; I48.91 Unspecified atrial fibrillation; Z87.891 Personal history of nicotine dependence; Z91.030 Bee allergy status; Z88.1 Allergy status to other antibiotic agents; Z88.2 Allergy status to sulfonamides
CPT/HCPCS: 36415; 93005; 80053; 83605; 83735; 84484; 85025; 85610; 85730; 81001; 87086; 71046; 99285; 96374; 96361; J0696